=== PATIENT | male | born 1970 | race American Indian/Alaskan Native ===

== ENCOUNTER 2016-12-30 19:24 | Inpatient (IN) | payer MEDICARE, SELFPAY ==
[2016-12-30] MEDS ORDERED: DILAUDID IV ONE ×2 (20:10→23:21)
[2016-12-30] MEDS ORDERED: ZOFRAN ODT PO/SL ONE (20:10)
--- NOTE | 2016-12-30 20:20 | Emergency Department Report ---
ED Abdominal Pain HPI - General Chief Complaint: Abdominal Pain Stated Complaint: ABDOMINAL PAIN Time Seen by Provider: 12/30/16 20:05 Source: patient, EMS Mode of arrival: Stretcher Limitations: Other - History of Present Illness Initial Comments: This is a 46-year-old gentleman who describes a excruciating abdominal pain over the last 2-3 hours. He does endorse constipation over the past 2 days. Last bowel movement was 2 days ago and was somewhat hard. Patient indicates that in general he does have some difficulty with bowel movements. He also indicates that he is end-stage renal disease with peritoneal dialysis. He has had peritonitis before and he suspects that he has spontaneous bacterial peritonitis again. His fever he denies nausea vomiting. He's had normal oral intake today up until the last couple of hours. Onset/Timin -: Sudden, hour(s) Location: diffuse Radiation: none Migration to: no migration Severity scale (0 -10): 10 Quality: aching Consistency: constant Improves With: nothing Worsens With: movement, other (palpation) Associated Symptoms: denies other symptoms - Related Data Home Medications Medication Instructions Recorded Confirmed Last Taken Metoprolol [Lopressor TAB] 100 mg PO BID 09/09/15 12/30/16 06/25/16 05:30 Allopurinol 100 mg PO QDAY 06/18/16 12/30/16 06/24/16 Cinacalcet [Sensipar] 30 mg PO QDAY 12/30/16 12/30/16 Unknown Naproxen [Naprosyn] 500 mg PO BID 12/30/16 12/30/16 Unknown Sevelamer Carbonate [Renvela] 800 mg PO TIDWM 12/30/16 12/30/16 Unknown Previous Rx's Medication Instructions Recorded Last Taken Type Calcitriol [Rocaltrol] 0.25 mcg PO QDAY #30 capsule 09/12/15 06/24/16 Rx NIFEdipine XL [Procardia Xl] 30 mg PO QDAY #30 tablet 03/01/16 06/24/16 Rx Allergies Allergy/AdvReac Type Severity Reaction Status Date / Time No Known Allergies Allergy Verified 09/09/15 13:26 ED Review of Systems ROS: Stated complaint: ABDOMINAL PAIN Other details as noted in HPI Constitutional: denies: chills, fever Eyes: denies: eye pain, eye discharge, vision change ENT: denies: ear pain, throat pain Respiratory: denies: cough, shortness of breath, wheezing Cardiovascular: denies: chest pain, palpitations Endocrine: no symptoms reported Gastrointestinal: abdominal pain, constipation. denies: nausea, diarrhea Genitourinary: denies: urgency, dysuria Musculoskeletal: denies: back pain, joint swelling, arthralgia Skin: denies: rash, lesions Neurological: denies: headache, weakness, paresthesias Psychiatric: denies: anxiety, depression Hematological/Lymphatic: denies: easy bleeding, easy bruising ED Past Medical Hx - Past Medical History Hx Hypertension: Yes (1991) Hx Liver Disease: No Hx Renal Disease: Yes Hx Arthritis: Yes Hx Seizures: No Hx Asthma: No Additional medical history: Dialysis patient, has graft in left arm. no dialysis since 1998. frequent UTIs - Surgical History Additional Surgical History: Kidney transplant. graft placement - Social History Smoking Status: Never Smoker Substance Use Type: None - Medications Home Medications: Home Medications Medication Instructions Recorded Confirmed Last Taken Type Metoprolol [Lopressor TAB] 100 mg PO BID 09/09/15 12/30/16 06/25/16 05:30 History Calcitriol [Rocaltrol] 0.25 mcg PO QDAY #30 capsule 09/12/15 12/30/16 06/24/16 Rx NIFEdipine XL [Procardia Xl] 30 mg PO QDAY #30 tablet 03/01/16 12/30/16 Rx Allopurinol 100 mg PO QDAY 06/18/16 12/30/16 06/24/16 History Cinacalcet [Sensipar] 30 mg PO QDAY 12/30/16 12/30/16 Unknown History Naproxen [Naprosyn] 500 mg PO BID 12/30/16 12/30/16 Unknown History Sevelamer Carbonate [Renvela] 800 mg PO TIDWM 12/30/16 12/30/16 Unknown History ED Physical Exam - General Limitations: Other General appearance: alert, in distress (due to significant pains) - Head Head exam: Present: atraumatic, normocephalic - Eye Eye exam: Present: normal appearance. Absent: scleral icterus - ENT ENT exam: Present: normal exam, mucous membranes moist - Neck Neck exam: Present: normal inspection - Respiratory Respiratory exam: Present: normal lung sounds bilaterally. Absent: respiratory distress - Cardiovascular Cardiovascular Exam: Present: regular rate, tachycardia. Absent: systolic murmur, diastolic murmur, rubs, gallop - GI/Abdominal GI/Abdominal exam: Present: soft, tenderness (diffusely), rebound (diffusely), normal bowel sounds - Rectal Rectal exam: Present: deferred - Extremities Exam Extremities exam: Present: normal inspection, pedal edema (trace bilat with good distal pedal pulses noted.). Absent: joint swelling - Back Exam Back exam: Present: normal inspection - Neurological Exam Neurological exam: Present: alert, oriented X3 - Psychiatric Psychiatric exam: Present: normal affect, normal mood - Skin Skin exam: Present: warm, dry, intact, normal color. Absent: rash ED Course Vital Signs 12/30/16 12/30/16 12/30/16 19:49 19:50 19:54 Temperature 98.0 F Pulse Rate 134 H 133 H 134 H Respiratory 35 H 33 H 41 H Rate Blood Pressure Blood Pressure 141/50 [Right] O2 Sat by Pulse 74 L 85 100 Oximetry 12/30/16 12/30/16 12/30/16 20:00 20:10 20:20 Temperature Pulse Rate 139 H 144 H 149 H Respiratory 39 H 20 31 H Rate Blood Pressure 145/79 142/67 136/83 Blood Pressure [Right] O2 Sat by Pulse 47 L 91 Oximetry 12/30/16 12/30/16 12/30/16 20:30 20:40 20:50 Temperature Pulse Rate 145 H 146 H 151 H Respiratory 39 H 21 42 H Rate Blood Pressure 130/66 130/66 107/53 Blood Pressure [Right] O2 Sat by Pulse 65 L 98 79 L Oximetry 12/30/16 12/30/16 12/30/16 21:00 21:10 21:20 Temperature Pulse Rate 152 H 153 H 148 H Respiratory 22 16 32 H Rate Blood Pressure 130/66 112/53 100/52 Blood Pressure [Right] O2 Sat by Pulse 98 91 96 Oximetry 12/30/16 12/30/16 12/30/16 21:30 21:40 21:50 Temperature Pulse Rate 151 H 154 H 148 H Respiratory 25 H 28 H 33 H Rate Blood Pressure 109/53 107/53 99/49 Blood Pressure [Right] O2 Sat by Pulse 90 Oximetry 12/30/16 12/30/16 12/30/16 22:00 22:10 22:20 Temperature Pulse Rate 151 H 150 H 149 H Respiratory 23 25 H 38 H Rate Blood Pressure 103/42 100/52 103/46 Blood Pressure [Right] O2 Sat by Pulse 91 Oximetry 12/30/16 12/30/16 12/30/16 22:30 22:40 22:50 Temperature Pulse Rate 150 H 150 H 145 H Respiratory 31 H 31 H 37 H Rate Blood Pressure 103/46 103/46 69/48 Blood Pressure [Right] O2 Sat by Pulse 91 98 Oximetry 12/30/16 12/30/16 12/30/16 23:00 23:10 23:20 Temperature Pulse Rate 144 H 148 H 145 H Respiratory 42 H 13 18 Rate Blood Pressure 86/47 86/47 90/51 Blood Pressure [Right] O2 Sat by Pulse 51 L 97 92 Oximetry 12/30/16 12/30/16 12/30/16 23:30 23:40 23:50 Temperature Pulse Rate 142 H 144 H 146 H Respiratory 34 H 43 H 36 H Rate Blood Pressure 101/48 101/48 92/53 Blood Pressure [Right] O2 Sat by Pulse 84 95 94 Oximetry 12/31/16 12/31/16 12/31/16 00:00 00:10 00:12 Temperature Pulse Rate 140 H 142 H 142 H Respiratory 53 H 38 H 37 H Rate Blood Pressure 90/37 90/37 90/37 Blood Pressure [Right] O2 Sat by Pulse 89 90 91 Oximetry 12/31/16 12/31/16 12/31/16 00:20 00:30 00:40 Temperature Pulse Rate 143 H 141 H 145 H Respiratory 64 H 38 H 27 H Rate Blood Pressure 105/48 98/52 98/52 Blood Pressure [Right] O2 Sat by Pulse 96 95 92 Oximetry 12/31/16 12/31/16 12/31/16 00:50 01:00 01:10 Temperature Pulse Rate 143 H 138 H 138 H Respiratory 22 18 16 Rate Blood Pressure 92/49 99/47 99/47 Blood Pressure [Right] O2 Sat by Pulse 98 94 Oximetry 12/31/16 12/31/16 12/31/16 01:20 01:30 01:40 Temperature Pulse Rate 140 H 139 H 137 H Respiratory 35 H 25 H 44 H Rate Blood Pressure 100/46 81/45 81/45 Blood Pressure [Right] O2 Sat by Pulse 91 Oximetry 12/31/16 12/31/16 12/31/16 01:50 02:00 02:10 Temperature Pulse Rate 135 H 136 H 134 H Respiratory 51 H 45 H 23 Rate Blood Pressure 98/46 98/46 134/101 Blood Pressure [Right] O2 Sat by Pulse 94 94 Oximetry 12/31/16 12/31/16 12/31/16 02:20 02:30 02:40 Temperature Pulse Rate 133 H 135 H 132 H Respiratory 33 H 35 H 31 H Rate Blood Pressure 86/46 85/40 85/40 Blood Pressure [Right] O2 Sat by Pulse Oximetry 12/31/16 12/31/16 12/31/16 02:50 03:00 03:10 Temperature Pulse Rate 134 H 134 H 132 H Respiratory 35 H 37 H 30 H Rate Blood Pressure 99/51 90/36 90/36 Blood Pressure [Right] O2 Sat by Pulse 41 L 91 92 Oximetry 12/31/16 12/31/16 12/31/16 03:19 03:20 03:30 Temperature Pulse Rate 132 H 126 H 131 H Respiratory 41 H 24 Rate Blood Pressure 90/36 97/45 106/47 Blood Pressure [Right] O2 Sat by Pulse 91 Oximetry 12/31/16 12/31/16 12/31/16 03:40 03:50 04:00 Temperature Pulse Rate 122 H 126 H 123 H Respiratory 39 H 40 H 58 H Rate Blood Pressure 97/45 87/40 91/42 Blood Pressure [Right] O2 Sat by Pulse 95 93 41 L Oximetry 12/31/16 12/31/16 12/31/16 04:10 04:20 04:30 Temperature Pulse Rate 124 H 124 H 126 H Respiratory 35 H 45 H 52 H Rate Blood Pressure 91/42 94/35 110/47 Blood Pressure [Right] O2 Sat by Pulse 90 86 Oximetry 12/31/16 12/31/16 12/31/16 04:40 04:50 05:08 Temperature 98.4 F Pulse Rate 123 H 123 H 125 H Respiratory 48 H 43 H 29 H Rate Blood Pressure 110/47 91/33 Blood Pressure 101/45 [Right] O2 Sat by Pulse 99 Oximetry - Reevaluation(s) Reevaluation #1: 12/31/16 05:26 This is been a fairly challenging patient for me. I feel after 9 hours are several things I would've done differently in managing his case. Initially with significant abdominal pain. This was somewhat difficult to control but also he was well controlled with narcotic medication. Despite his pain being adequately controlled he continued to be quite tachycardic. CT did demonstrate what appeared to be SVT. I did try the adenosine and a peripheral line in the hand. This did nothing for him. 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 Ultimately I did decide to put a left IJ to gain better access and to try adenosine again. Repeated Son did bring down the heart rate from 140 to 110. P waves were noted in front of the QRS complexes when it slowed down. It appeared to be a sinus rhythm now. This caused me to posit wonder if he was volume depleted. He does have slightly dry mucous membranes his blood pressure has been somewhat dropping here. He attributed this to the narcotic medication however. Decision was ultimately made to give him some IV fluids he was given 500 mL bolus followed by 1 L bolus. This did bring down his heart rate by about 20 points. I also gave him a little Cardizem per the suggestion of Dr. Polanco. This also had somewhat of an effect on his heart rate as well. Labs are noted. Peritoneal fluid with clear SBP I did speak with the patient's cherry cutter who recommended patient be started empirically on vancomycin as well as Zosyn since Fortaz was not available. Other electrolyte abnormalities are noted. Of special note his lactic acidosis. In regards to patient's abdominal exam he does have diffuse tenderness. I do not suspect a surgical etiology as the cause for the spell. I think spontaneous bacterial peritonitis is still the most likely etiology. I have deferred on CT study for tonight. His white blood cell count is noted he is afebrile here. Family did go home and get his peritoneal dialysis equipment so he could continue with dialysate exchange through the night. Overall, he causes me concern and has been a challenging patient to manage. I have been concerned regarding his elevated heart rate is this is the equivalent of a stress test for him. He remained in the 140s for approximately 3-4 hours. Nothing seemed to be improving and heading in the right direction. [facility] his heart rate is 115. - Procedure Description Procedures done: Medical cardioversion. Indication supraventricular tachycardia. Heart rate in the 140s. Cardiac pads were placed on the patient. Suction and all ancillary equipment available. Verbal consent obtained from patient. Patient was given adenosine 12 mg IV 2. I did bring down the heart rate from 140 to 110. Heart rate then just went back up to 140 without breaking. Unsuccessful procedure. - Central Line Placement Left IJ Consent Obtained: verbal consent Time Out Performed: Yes Patient Placed on Monitor/Pulse Ox: Yes MD Prep: mask, gown, gloves Central Line Prep: Chlorhexidine scrub Local Anesthesia Used: Lidocaine 1% Amount of Anesthesia Used (mls): 3 Ultrasound Used for Placement: Yes Central Line Lumen Inserted: triple Bloods Obtained for Lab: No Central Line Position: good blood return (brown port without return) Dressing Applied: Tegaderm Post Procedure X-Ray: tip of catheter in good p ED Medical Decision Making - Lab Data Result diagrams: 12/30/16 20:36 12/31/16 02:39 - Radiology Data interpreted by me: Acute abdominal series with small amount of vascular congestion noted on chest x -ray component no free air noted nonspecific bowel gas pattern otherwise noted. Critical Care Time: Yes Critical care time in (mins) excluding proc time.: 60 Critical care attestation.: If time is entered above; I have spent that time in minutes in the direct care of this critically ill patient, excluding procedure time. ED Disposition Clinical Impression: Spontaneous bacterial peritonitis, End stage renal disease, Lactic acidosis Disposition: OP ADMITTED IP TO THIS HOSP Is pt being admited?: Yes Does the pt Need Aspirin: No Condition: Stable Time of Disposition: 03:47
[2016-12-30 21:03] LABS: Eosinophils % (Auto) 0.3 % (0.0-4.3); Hematocrit 27.3 % (35.5-45.6); Hemoglobin 8.7 gm/dl (11.8-15.2); Mean Corpuscular HGB Conc 32 % (32-34); Mean Corpuscular Hemoglobin 30 pg (28-32); Mean Corpuscular Volume 93 fl (84-94); Platelet Count 395 K/mm3 (140-440); Red Blood Count 2.93 M/mm3 (3.65-5.03); Red Cell Distribution Width 18.9 % (13.2-15.2)
[2016-12-30] MEDS ORDERED: SUBLIMAZE ONE (21:11)
[2016-12-30] MEDS ORDERED: SUBLIMAZE IV ONE (21:15)
[2016-12-30] MEDS ORDERED: VANCOMYCIN/NS 1 GM/250 ML 1 GM/250 ML BAG IV ONE (22:22)
[2016-12-30] MEDS: ZOSYN/NS 3.375GM/50ML 3.375 GM/50 ML BAG IV SCH (23:02)
[2016-12-30] MEDS ORDERED: NACL 0.9% 500 ML 500 ML IV ONE (23:21)
[2016-12-30] MEDS ORDERED: ATIVAN IV ONE (23:21)
[2016-12-31] MEDS ORDERED: DILAUDID IV ONE (01:52)
[2016-12-31] MEDS ORDERED: NACL 0.9% 1000 ML 1,000 ML IV ONE (01:52)
[2016-12-31] MEDS ORDERED: CARDIZEM IV ONE (01:55)
[2016-12-31 03:10] LABS: Albumin 3.4 g/dL (3.9-5); Albumin/Globulin Ratio 0.9 %; BUN/Creatinine Ratio 2.66; Bilirubin,Total 0.4 mg/dL (0.1-1.2); Calcium 8.7 mg/dL (8.4-10.2); Chloride 92.9 mmol/L (98-107); Potassium 5.3 mmol/L (3.6-5.0)
[2016-12-31 03:56] LABS: Basophils Body Fluid 0 %; Reactive Lymph Body Fluid 0 %
[2016-12-31] MEDS: ZOSYN/NS 3.375GM/50ML 3.375 GM/50 ML BAG IV SCH (04:33)
[2016-12-31] MEDS ORDERED: TYLENOL PO PRN (04:39)
[2016-12-31] MEDS ORDERED: MORPHINE IV PRN (04:39)
--- NOTE | 2016-12-31 04:40 | Admit Criteria Form ---
Admission Criteria Documentation: ABDOMINAL PAIN Clinical Indications for Admission to Inpatient Care (Place 'X' for any and all applicable criteria): Admission is indicated for ANY ONE of the following(1)(2)(3)(4)(5): [ X]I. Inpatient admission required rather than observation care (Also use Abdominal Pain: Observation Care, as appropriate) because of ANY ONE of the following: [ ]a) Severe pain requiring acute inpatient management [ ]b) Identification of etiology/finding that requires inpatient care (eg, aortic dissection, free air) [ ]c) Absent bowel sounds with complete ileus(6) [ ]d) Suspected toxic megacolon [ ]e) Severe electrolyte abnormalities requiring inpatient care [ ]f) High fever or infection requiring inpatient admission as indicated by ANY ONE of following(7)(8): [ ] i) Appropriate outpatient or observational care antimicrobial treatment unavailable, not effective, or not feasible [ ] ii) Documented bacteremia [ ] iii) Temperature > 104.9 degrees F (oral) [ ] iv) T >103.1 F (oral) or < 96.8 F(rectal) that does not respond to all emergency treatment measures [ ]g) Signs of intestinal obstruction [B] [ ]h) Hemodynamic instability [ ]i) IV fluid to replace significant ongoing losses (greater than 3 L/m2 per day) (12)(13) [ ]j) Percutaneous or open drainage (eg, abscess, biliary tract ) procedures [ ]k) Parenteral nutrition regimen that must be implemented on inpatient basis [X ]l) Other condition,treatment or monitoring requiring inpatient admission. [ ]II. Peritoneal signs present [ ]III. Surgery needed that cannot be performed on an ambulatory basis. [ ]IV. Evaluation requires patient to not eat or drink for extended period ( eg, more than 24 hours). [ ]V. Contraindications and/or Inappropriate clinical situations for Observational Care in patients with abdominal pain, when ANY ONE of the following is required: [ ]a) Thorough evaluation is required to prevent catastrophic events due to delays in diagnosing (e.g.Mesenteric ischemia) 1,3 [ ]b) Patient with severe pathology or with chronic symptoms unlikely to improve in the ED stay (3) [ ]. General contraindications and/or Inappropriate clinical situations for Observational Care in patients with abdominal pain, when ANY ONE of the following is required: [ ]a) Prediction of prolongation of LOS based on ANY ONE of the following may be considered as a contraindication for observational care 2, 3, 4, 5, 6, 7, 8, 9, 10, 11 [ ]i) Age > 65 yrs. [ ]ii) Patient arriving by ambulance [ ]iii) Patient with high acuity [ ]iv) Patient requiring vital sign monitoring [ ]v) Patient on IV medication [ ]b) Systolic blood pressures 180mmHg 3,12 [ ]c) Patient with altered mental status including delirium and other alteration of consciousness, (3) [ ]d) Patient whose discharge disposition will be to a nursing home home or rehabilitation home should not be managed in Emergency Department Observation Unit. CMS rule requires 3 days hospital stay before such placement.3,13 [ ]e) Patient with failure to thrive due to broad array of etiologies 3,16,17 [ ]f) Inability to ambulate 3,14 Extended stay beyond goal length of stay may be needed for(2)(3): [ ]a) Persistent abdominal pain with suspected intra-abdominal process [ ]b) Diagnosed condition requiring continued stay (e.g., pancreatitis, complicated diverticulitis) [ ]c) Surgery (e.g., colectomy) The original [employer] content created by [employer] has been revised. The portions of the content which have been revised are identified through the use of italic text or in bold, and [facility] has neither reviewed nor approved the modified material.All other unmodified content is copyright [employer]. Please see references footnoted in the original [employer] edition 2016 Admission Criteria Met: Yes
--- NOTE | 2016-12-31 04:45 | History and Physical Report ---
History of Present Illness Date of examination: 12/31/16 History of present illness: 46-year-old man with a history of end-stage dialysis on peritoneal dialysis, hypertension comes emergency room with complaint of abdominal pain. Pain is in the mid lower abdomen which she describes as a strong pain, constant, intensity 9/10, no radiation, worse or palpitation. Stated that fluid in his dialysis bag was cloudy. Reports hemorrhoidal bleeding. Denies fever or chills Patient denies chest pain, palpitation, shortness of breath, cough, hematochezia , dysuria, frequency, focal weakness, dysarthria, fever chills, polydipsia polyuria, hot or cold intolerance, easy bruisability, or rash or bleeding from mucosal membrane, rhinorrhea, epistaxis, earache, tinnitus, blurry vision, eye discharge, anxiety, depression. Other review of systems negative PAST SURGICAL HISTORY: PD catheter SOCIAL HISTORY: Denies alcohol, tobacco, drugs FAMILY HISTORY: Hypertension Medications and Allergies Allergies Allergy/AdvReac Type Severity Reaction Status Date / Time No Known Allergies Allergy Verified 09/09/15 13:26 Home Medications Medication Instructions Recorded Confirmed Last Taken Type Metoprolol [Lopressor TAB] 100 mg PO BID 09/09/15 12/30/16 06/25/16 05:30 History Calcitriol [Rocaltrol] 0.25 mcg PO QDAY #30 capsule 09/12/15 12/30/16 06/24/16 Rx NIFEdipine XL [Procardia Xl] 30 mg PO QDAY #30 tablet 03/01/16 12/30/16 Rx Allopurinol 100 mg PO QDAY 06/18/16 12/30/16 06/24/16 History Cinacalcet [Sensipar] 30 mg PO QDAY 12/30/16 12/30/16 Unknown History Naproxen [Naprosyn] 500 mg PO BID 12/30/16 12/30/16 Unknown History Sevelamer Carbonate [Renvela] 800 mg PO TIDWM 12/30/16 12/30/16 Unknown History Active Meds: Active Medications Allopurinol (Zyloprim) 100 mg PO QDAY SORIN Calcitriol (Rocaltrol) 0.25 mcg PO QDAY SORIN Cinacalcet (Sensipar) 30 mg PO QDAY SORIN Piperacillin Sod/Tazobactam Sod (Zosyn/Ns 3.375gm/50ml) 3.375 gm in 50 mls @ 100 mls/hr IV Q6HR SORIN Last Admin: 12/31/16 04:33 Dose: 100 mls/hr Norepinephrine (Levophed Drip 4 Mg/Ns 250 Ml) 4 mg in 250 mls @ 7.5 mls/hr IV TITR SORIN; 2 MCG/MIN PRN Reason: Protocol Exam - Physical Exam Narrative exam: Gen. appearance: Patient lying in bed, no apparent distress HEENT: Normocephalic, atraumatic, pupils equally round and reactive to light, extraocular movement intact, and no sclericterus,. No JVD or thyromegaly or nodule,neck supple, no carotid bruit ,mucous membranes moist, no exudate or erythema Heart: S1, S2, regular rate and rhythm Lungs: Clear to auscultation bilaterally, breathing comfortable Abdomen: Positive bowel sounds, tender, nondistended, no organomegaly Extremity: No edema, cyanosis Skin: No rash, nodules, warm, dry Neuro: Oriented 3, cranial nerves II-12 intact, speech is fluent, motor and sensory intact - Constitutional Vitals: Temp Pulse Resp BP Pulse Ox 98.0 F 122 H 39 H 97/45 95 12/30/16 19:54 12/31/16 03:40 12/31/16 03:50 12/31/16 03:40 12/31/16 03:50 Results - Labs CBC & Chem 7: 01/08/17 05:41 01/08/17 05:41 Labs: Abnormal lab results 12/30/16 12/31/16 12/31/16 Range/Units 20:36 02:39 02:39 WBC 17.0 H (4.5-11.0) K/mm3 RBC 2.93 L (3.65-5.03) M/mm3 Hgb 8.7 L (11.8-15.2) gm/dl Hct 27.3 L (35.5-45.6) % RDW 18.9 H (13.2-15.2) % Baso # 0.2 H (0.0-0.1) K/mm3 Seg Neutrophils % 73.3 H (40.0-70.0) % Seg Neutrophils # 12.4 H (1.8-7.7) K/mm3 Potassium 5.3 H (3.6-5.0) mmol/L Chloride 92.9 L (98-107) mmol/L Carbon Dioxide 21 L (22-30) mmol/L BUN 52 H (9-20) mg/dL Creatinine 19.5 H (0.8-1.5) mg/dL Glucose 149 H (75-100) mg/dL Lactic Acid 4.3 H* (0.7-2.0) mmol/L Albumin 3.4 L (3.9-5) g/dL - Imaging and Cardiology Chest x-ray: image reviewed Assessment and Plan Septic shock Peritonitis End-stage renal disease Admit to medicine Started Levophed drip, IV Zosyn Consult renal, critical care Start DVT prophylaxis
[2016-12-31] MEDS ORDERED: LEVOPHED DRIP 4 MG/NS 250 ML 4 MG/250 ML BAG IV SCH (05:00)
[2016-12-31] MEDS ORDERED: MORPHINE ONE (05:11)
[2016-12-31] MEDS ORDERED: ZOSYN/NS 3.375GM/50ML 50 ML IV SCH (06:00)
--- NOTE | 2016-12-31 07:39 | XRay Report ---
AP CHEST History: Central line placement. Findings: A left IJ venous catheter has been inserted which terminates in along the left side of the superior mediastinum. may terminate within the left brachiocephalic vein. I cannot confidently determine the exact location of this central line. Please correlate with the image. The lungs are clear. No pneumothorax. Mild cardiomegaly is unchanged since 05/18/16. Impression: Left IJ venous catheter placement as described.
[2016-12-31 08:40] LABS: Hematocrit 21.5 % (35.5-45.6); Hemoglobin 6.9 gm/dl (11.8-15.2); Mean Corpuscular HGB Conc 32 % (32-34); Mean Corpuscular Hemoglobin 30 pg (28-32); Mean Corpuscular Volume 92 fl (84-94); Platelet Count 203 K/mm3 (140-440); Red Blood Count 2.33 M/mm3 (3.65-5.03); Red Cell Distribution Width 19.1 % (13.2-15.2); White Blood Count 18.2 K/mm3 (4.5-11.0)
--- NOTE | 2016-12-31 08:53 | XRay Report ---
ABDOMINAL SERIES INDICATION: Abdominal pain. COMPARISON: None similar. Correlated with 05/18/2016 CXR and 08/13/[address] findings. FINDINGS: Abdominal series, 4 radiographs, somewhat limited due to patient's body habitus, though suggest grossly nonobstructive bowel gas pattern without definite focal suspicious calcifications, pneumatosis or pneumoperitoneum. Few surgical clips in the left upper pelvis related to a prior renal transplant. A new presumed peritoneal dialysis catheter also now noted coiled in the left lower quadrant. Approximately 5.2 x 4.9 cm heterogeneous right upper pelvic calcifications may relate to a failed renal transplant. Chest radiograph demonstrates suboptimal inspiration with crowded lung markings toward the bases with mild exaggerated cardiomediastinal silhouette. Mild left lung base atelectasis. No large pleural effusions or CHF. Vascular stents noted along the left arm medially as also in the right subclavian region. EKG leads. Few lower thoracic spine degenerative changes. CONCLUSION: 1. No acute abdominal radiographic abnormality, though a possibly peritoneal dialysis catheter in the left lower quadrant may be new since July 2016 in this patient with bilateral lower quadrant renal transplants, as described. Please correlate. 2. Suboptimal inspiration and few other incidental findings, as above. Thank you for the opportunity to participate in this patient's care.
[2016-12-31 09:01] LABS: ISTAT Base Excess -2; ISTAT HCO3 22.7; ISTAT PCO2 38.2 (35-45); ISTAT PH 7.382 (7.35-7.45); ISTAT PO2 78 (80-105); ISTAT SO2 95; ISTAT TCO2 24
[2016-12-31] MEDS ORDERED: DIANEAL PD-2 W/1.5% DEXTROSE IP SCH ×2 (10:00→12:00)
[2016-12-31] MEDS: SENSIPAR PO SCH (12:55)
[2016-12-31] MEDS: ZYLOPRIM PO SCH (12:55)
[2016-12-31] MEDS: MORPHINE IV PRN ×3 (13:10→22:51)
[2016-12-31] MEDS ORDERED: NACL 0.9% 500 ML 500 ML IV ONE (13:50)
[2016-12-31] MEDS ORDERED: NACL 0.9% 250ML 250 ML IV ONE (13:51)
--- NOTE | 2016-12-31 13:52 | Consultation ---
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 Pain is in the mid lower abdomen which is described as sharp , constant pain with intensity of 9/10, no radiation, worse or palpitation, pt reports that his PD fluid was was cloudy for the last 1-2 days. patient also c/ o chills, generalized weakness, palpitations, however denies acute SOB, CP, nausea, vomiting, dysuria, rash, pain at the PD cath exit site. Pt was recently seen by me in the office for persistent anemia despite increased dose of mircera and frequent BRBPR likely due to hemorrhoidal bleed. Pt was referred to GI, however presented to ER first. Pt was found to have leukocytosis with WBC > 18, anemia with Hb as low as 6.9 along with cloudy PD fluid, WBC count >4300. renal consult is requested for management of ESRD/PD and treatment of peritonitis. Past History Past Medical History: anemia, diabetes, dialysis, ESRD, hypertension Past Surgical History: Other (Multiple AV grafts, Multiple Permacaths, Kidney transplants in 1991, 1998, Pericardial window) Social history: , lives with family, full code. denies: smoking, alcohol abuse, prescription drug abuse, IV drug use Family history: hypertension Medications and Allergies Allergies Allergy/AdvReac Type Severity Reaction Status Date / Time No Known Allergies Allergy Verified 09/09/15 13:26 Home Medications Medication Instructions Recorded Confirmed Last Taken Type Metoprolol [Lopressor TAB] 100 mg PO BID 09/09/15 12/30/16 06/25/16 05:30 History Calcitriol [Rocaltrol] 0.25 mcg PO QDAY #30 capsule 09/12/15 12/30/16 06/24/16 Rx NIFEdipine XL [Procardia Xl] 30 mg PO QDAY #30 tablet 03/01/16 12/30/16 Rx Allopurinol 100 mg PO QDAY 06/18/16 12/30/16 06/24/16 History Cinacalcet [Sensipar] 30 mg PO QDAY 12/30/16 12/30/16 Unknown History Naproxen [Naprosyn] 500 mg PO BID 12/30/16 12/30/16 Unknown History Sevelamer Carbonate [Renvela] 800 mg PO TIDWM 12/30/16 12/30/16 Unknown History Active Meds: Active Medications Acetaminophen (Tylenol) 650 mg PO Q4H PRN PRN Reason: Pain MILD(1-3)/Fever >100.5/YODER Allopurinol (Zyloprim) 100 mg PO QDAY SORIN Calcitriol (Rocaltrol) 0.25 mcg PO QDAY SORIN Cinacalcet (Sensipar) 30 mg PO QDAY SORIN Heparin Sodium (Porcine) (Heparin) 5,000 unit SUB-Q Q8HR SORIN Norepinephrine (Levophed Drip 4 Mg/Ns 250 Ml) 4 mg in 250 mls @ 7.5 mls/hr IV TITR SORIN; 2 MCG/MIN PRN Reason: Protocol Piperacillin Sod/Tazobactam Sod (Zosyn/Ns 2.25 Gm/50ml) 2.25 gm in 50 mls @ 100 mls/hr IV Q8HR SORIN Sodium Chloride (Nacl 0.9% 500 Ml) mls @ 0 mls/hr IV ONCE ONE PRN Reason: As Directed Stop: 12/31/16 13:51 Sodium Chloride (Nacl 0.9% 250ml) 250 mls @ 999 mls/hr IV ONCE ONE Stop: 12/31/16 14:06 Morphine Sulfate (Morphine) 2 mg IV Q2H PRN PRN Reason: Pain, Moderate (4-6) Ondansetron HCl (Zofran) 4 mg IV Q8H PRN PRN Reason: N/V unrelieved by Reglan Peritoneal Dialysis Solution (Dianeal Pd-2 W/1.5% Dextrose) 2,000 ml IP Q6HR SORIN Review of Systems All systems: negative Constitutional: fever, chills, fatigue, weakness, malaise, lethargy, poor appetite Cardiovascular: shortness of breath, dyspnea on exertion Respiratory: dyspnea on exertion Gastrointestinal: abdominal pain, BRBPR Exam - Vital Signs Vital signs: Vital Signs Pulse Resp Pulse Ox 134 H 35 H 74 L 12/30/16 19:49 12/30/16 19:49 12/30/16 19:49 - General Appearance General appearance: well-developed, well-nourished, appears stated age EENT: ATNC, PERRL, mucous membranes moist Neck: Present: neck supple Respiratory: Clear to Ascultation Heart: regular, S1S2 Gastrointestinal: Present: tenderness, distended, other (PD cath exit site clean , intact ,dry ) Integumentary: no rash, other (no edema ) Neurologic: no focal deficit, alert and oriented x3, strength 5/5, CN 3-12 intact Psychiatric: mood/affect appropriate, cooperative Results - Lab Results 12/31/16 08:28 12/31/16 02:39 Most recent lab results Calcium 8.7 mg/dL (8.4-10.2) 12/31/16 02:39 Laboratory Tests 12/30/16 12/31/16 12/31/16 20:36 02:30 02:39 POC ABG pH POC ABG pCO2 POC ABG pO2 POC ABG HCO3 POC ABG Total CO2 POC ABG O2 Sat POC ABG Base Excess FiO2 Lactic Acid Calcium 8.7 Total Bilirubin 0.4 AST 14 ALT 11 Alkaline Phosphatase 106 Total Protein 7.0 Albumin 3.4 L Albumin/Globulin Ratio 0.9 Lipase 42 Fluid Type Peritoneal Fluid Color White Fluid Appearance Hazy Fluid WBC 4300 Fluid RBC 0 Fluid Seg Neutrophils 72.0 Fluid Lymphocytes 1.0 Fluid Reactive Lymphs 0 Fluid Monocytes 15.0 Fluid Eosinophils 12.0 Fluid Basophils 0 12/31/16 12/31/16 02:39 08:57 POC ABG pH 7.382 POC ABG pCO2 38.2 POC ABG pO2 78 L POC ABG HCO3 22.7 POC ABG Total CO2 24 POC ABG O2 Sat 95 POC ABG Base Excess -2 FiO2 32 Lactic Acid 4.3 H* Calcium Total Bilirubin AST ALT Alkaline Phosphatase Total Protein Albumin Albumin/Globulin Ratio Lipase Fluid Type Fluid Color Fluid Appearance Fluid WBC Fluid RBC Fluid Seg Neutrophils Fluid Lymphocytes Fluid Reactive Lymphs Fluid Monocytes Fluid Eosinophils Fluid Basophils Assessment and Plan Assessment: 1. acute peritonitis in the setting of PD 2. ESRD on PD 3. Sepsis with hypotension 4. Anemia, acute blood loss anemia superimposed on chronic anemia of ESRD 5. h/o Type 2 DM 6. Hyperkalemia 7. lactic acidosis Plan: - continue ABX treatment with IV vanco and zosyn. dose adjusted for PD. awaiting PD fluid culture. Consult ID - BP stabilized with IV NS/transient levophed. Will give addional IV NS bolus of 250ml. to maintain MAP >65mmHg - will transfuse with 2 PRBCs given down trending Hb. consider GI consult. will start epo [id number] sc q week - continue CAPD with 4 exchanges of 1.5% Dineal 2.5 dwell volume. Will monitor I /Os, electrolytes and renal parameters closely and adjust PD regimen accordingly. -d/w RN and patient regarding renal care plan.
[2016-12-31] MEDS: ZOSYN/NS 2.25 GM/50ML 2.25 GM/50 ML BAG IV SCH ×2 (13:56→22:53)
--- NOTE | 2016-12-31 14:04 | Progress Note ---
Assessment and Plan Assessment and plan: 1. Peritonitis with resolving septic shock in patient with PD for ESRD - cotn current antibiotics; f/u cultures; IVF boluses as needed; I2. End-stage renal disease on PD with peritionitis- f/u renal for further recommendations 3. Acute on chronic anemia requiring transfusion- transfuse PRBC; monitor; anemia work up 4. Benign HTN with hypotension -hold BP meds 5. DVT prohylaxis- SCD; no heparin or lovenox due to anemia requiring transfusion CCT exclusive of all other billable procedures 32 minutes History Interval history: f/u sepsis/ shock; peritonitis Patient seen at the bedside; has abdominal pain Hospitalist Physical - Constitutional Vitals: Temp Pulse Resp BP Pulse Ox 98.9 F 112 H 35 H 105/42 100 12/31/16 12:00 12/31/16 07:34 12/31/16 07:34 12/31/16 06:30 12/31/16 08:59 General appearance: Present: no acute distress, well-nourished - EENT Eyes: Present: PERRL, EOM intact ENT: hearing intact, clear oral mucosa, no oropharyngeal erythema, no poor dentition - Neck Neck: Present: supple, normal ROM - Respiratory Respiratory effort: normal Respiratory: negative: diminished, rales, rhonchi, wheezing - Cardiovascular Rhythm: regular Heart Sounds: Present: S1 & S2. Absent: gallop - Extremities Extremities: no ischemia, pulses intact, pulses symmetrical, No edema Peripheral Pulses: within normal limits - Abdominal General gastrointestinal: soft, tender, distended - Integumentary Integumentary: Present: clear - Psychiatric Psychiatric: appropriate mood/affect, intact judgment & insight, cooperative Results - Labs CBC & Chem 7: 12/31/16 08:28 12/31/16 02:39 Labs: Laboratory Last Values WBC 18.2 K/mm3 (4.5-11.0) H 12/31/16 08:28 RBC 2.33 M/mm3 (3.65-5.03) L 12/31/16 08:28 Hgb 6.9 gm/dl (11.8-15.2) L 12/31/16 08:28 Hct 21.5 % (35.5-45.6) L 12/31/16 08:28 MCV 92 fl (84-94) 12/31/16 08:28 MCH 30 pg (28-32) 12/31/16 08:28 MCHC 32 % (32-34) 12/31/16 08:28 RDW 19.1 % (13.2-15.2) H 12/31/16 08:28 Plt Count 203 K/mm3 (140-440) 12/31/16 08:28 Lymph % (Auto) 20.7 % (13.4-35.0) 12/30/16 20:36 [place] % (Auto) 4.7 % (0.0-7.3) 12/30/16 20:36 Eos % (Auto) 0.3 % (0.0-4.3) 12/30/16 20:36 Baso % (Auto) 1.0 % (0.0-1.8) 12/30/16 20:36 Lymph # 3.5 K/mm3 (1.2-5.4) 12/30/16 20:36 [place] # 0.8 K/mm3 (0.0-0.8) 12/30/16 20:36 Eos # 0.0 K/mm3 (0.0-0.4) 12/30/16 20:36 Baso # 0.2 K/mm3 (0.0-0.1) H 12/30/16 20:36 Seg Neutrophils % 73.3 % (40.0-70.0) H 12/30/16 20:36 Seg Neutrophils # 12.4 K/mm3 (1.8-7.7) H 12/30/16 20:36 POC ABG pH 7.382 (7.35-7.45) 12/31/16 08:57 POC ABG pCO2 38.2 (35-45) 12/31/16 08:57 POC ABG pO2 78 (80-105) L 12/31/16 08:57 POC ABG HCO3 22.7 12/31/16 08:57 POC ABG Total CO2 24 12/31/16 08:57 POC ABG O2 Sat 95 12/31/16 08:57 POC ABG Base Excess -2 12/31/16 08:57 FiO2 32 % 12/31/16 08:57 Sodium 140 mmol/L (137-145) 12/31/16 02:39 Potassium 5.3 mmol/L (3.6-5.0) H 12/31/16 02:39 Chloride 92.9 mmol/L (98-107) L 12/31/16 02:39 Carbon Dioxide 21 mmol/L (22-30) L 12/31/16 02:39 Anion Gap 31 mmol/L 12/31/16 02:39 BUN 52 mg/dL (9-20) H 12/31/16 02:39 Creatinine 19.5 mg/dL (0.8-1.5) H 12/31/16 02:39 Estimated GFR 3 ml/min 12/31/16 02:39 BUN/Creatinine Ratio 2.66 % 12/31/16 02:39 Glucose 149 mg/dL (75-100) H 12/31/16 02:39 Lactic Acid 4.3 mmol/L (0.7-2.0) H* 12/31/16 02:39 Calcium 8.7 mg/dL (8.4-10.2) 12/31/16 02:39 Total Bilirubin 0.4 mg/dL (0.1-1.2) 12/31/16 02:39 AST 14 units/L (5-40) 12/31/16 02:39 ALT 11 units/L (7-56) 12/31/16 02:39 Alkaline Phosphatase 106 units/L (35-129) 12/31/16 02:39 Total Protein 7.0 g/dL (6.3-8.2) 12/31/16 02:39 Albumin 3.4 g/dL (3.9-5) L 12/31/16 02:39 Albumin/Globulin Ratio 0.9 % 12/31/16 02:39 Lipase 42 units/L (13-60) 12/30/16 20:36 Fluid Type Peritoneal 12/31/16 02:30 Fluid Color White 12/31/16 02:30 Fluid Appearance Hazy 12/31/16 02:30 Fluid WBC 4300 /mm3 12/31/16 02:30 Fluid RBC 0 /mm3 12/31/16 02:30 Fluid Seg Neutrophils 72.0 % 12/31/16 02:30 Fluid Lymphocytes 1.0 % 12/31/16 02:30 Fluid Reactive Lymphs 0 % 12/31/16 02:30 Fluid Monocytes 15.0 % 12/31/16 02:30 Fluid Eosinophils 12.0 % 12/31/16 02:30 Fluid Basophils 0 % 12/31/16 02:30 Microbiology 12/30/16 21:24 Abdomen Wound Culture - Preliminary 12/30/16 20:36 Peripheral/Venous Blood Culture - Preliminary Culture in Progress 12/30/16 20:51 Peripheral/Venous Blood Culture - Preliminary Culture in Progress
[2016-12-31] MEDS: HEPARIN SUB-Q SCH ×2 (15:07→22:57)
[2016-12-31] MEDS: ROCALTROL PO SCH (15:25)
--- NOTE | 2016-12-31 16:19 | Consultation ---
History of Present Illness Consult date: 12/31/16 Requesting physician: KANDI LEW Reason for consult: other (sepsis) History of present illness: 46 yo admitted with abdominal pain, cloudy PD fluid, vomiting, SOB, and fevers. No chest pain, cough, diarrhea. Hypotensive initially but doing better currently without any pressors. Active Medications Acetaminophen (Tylenol) 650 mg PO Q4H PRN PRN Reason: Pain MILD(1-3)/Fever >100.5/YODER Allopurinol (Zyloprim) 100 mg PO QDAY [facility] Last Admin: 12/31/16 12:55 Dose: 100 mg Calcitriol (Rocaltrol) 0.25 mcg PO QDAY SORIN Cinacalcet (Sensipar) 30 mg PO QDAY SORIN Last Admin: 12/31/16 12:55 Dose: 30 mg Heparin Sodium (Porcine) (Heparin) 5,000 unit SUB-Q Q8HR SORIN Last Admin: 12/31/16 15:07 Dose: 5,000 unit Norepinephrine (Levophed Drip 4 Mg/Ns 250 Ml) 4 mg in 250 mls @ 7.5 mls/hr IV TITR SORIN; 2 MCG/MIN PRN Reason: Protocol Piperacillin Sod/Tazobactam Sod (Zosyn/Ns 2.25 Gm/50ml) 2.25 gm in 50 mls @ 100 mls/hr IV Q8HR SORIN Last Admin: 12/31/16 13:56 Dose: 100 mls/hr Morphine Sulfate (Morphine) 2 mg IV Q2H PRN PRN Reason: Pain, Moderate (4-6) Ondansetron HCl (Zofran) 4 mg IV Q8H PRN PRN Reason: N/V unrelieved by Reglan Peritoneal Dialysis Solution (Dianeal Pd-2 W/1.5% Dextrose) 2,500 ml IP Q6HR SORIN Vancomycin HCl (Vancomycin Pharmacy To Dose) 1 each IV PKCONSULT SORIN PRN Reason: Protocol Past History Past Medical History: anemia, diabetes, dialysis, ESRD, hypertension Past Surgical History: Other (Multiple AV grafts, Multiple Permacaths, Kidney transplants in 1991, 1998, Pericardial window) Social history: , lives with family, full code. denies: smoking, alcohol abuse, prescription drug abuse, IV drug use Family history: hypertension Medications and Allergies Allergies Allergy/AdvReac Type Severity Reaction Status Date / Time No Known Allergies Allergy Verified 09/09/15 13:26 Home Medications Medication Instructions Recorded Confirmed Last Taken Type Metoprolol [Lopressor TAB] 100 mg PO BID 09/09/15 12/30/16 06/25/16 05:30 History Calcitriol [Rocaltrol] 0.25 mcg PO QDAY #30 capsule 09/12/15 12/30/16 06/24/16 Rx NIFEdipine XL [Procardia Xl] 30 mg PO QDAY #30 tablet 03/01/16 12/30/16 Rx Allopurinol 100 mg PO QDAY 06/18/16 12/30/16 06/24/16 History Cinacalcet [Sensipar] 30 mg PO QDAY 12/30/16 12/30/16 Unknown History Naproxen [Naprosyn] 500 mg PO BID 12/30/16 12/30/16 Unknown History Sevelamer Carbonate [Renvela] 800 mg PO TIDWM 12/30/16 12/30/16 Unknown History Active Meds: Active Medications Acetaminophen (Tylenol) 650 mg PO Q4H PRN PRN Reason: Pain MILD(1-3)/Fever >100.5/YODER Allopurinol (Zyloprim) 100 mg PO QDAY [facility] Last Admin: 12/31/16 12:55 Dose: 100 mg Calcitriol (Rocaltrol) 0.25 mcg PO QDAY SORIN Cinacalcet (Sensipar) 30 mg PO QDAY [facility] Last Admin: 12/31/16 12:55 Dose: 30 mg Heparin Sodium (Porcine) (Heparin) 5,000 unit SUB-Q Q8HR [facility] Last Admin: 12/31/16 15:07 Dose: 5,000 unit Norepinephrine (Levophed Drip 4 Mg/Ns 250 Ml) 4 mg in 250 mls @ 7.5 mls/hr IV TITR SORIN; 2 MCG/MIN PRN Reason: Protocol Piperacillin Sod/Tazobactam Sod (Zosyn/Ns 2.25 Gm/50ml) 2.25 gm in 50 mls @ 100 mls/hr IV Q8HR [facility] Last Admin: 12/31/16 13:56 Dose: 100 mls/hr Morphine Sulfate (Morphine) 2 mg IV Q2H PRN PRN Reason: Pain, Moderate (4-6) Ondansetron HCl (Zofran) 4 mg IV Q8H PRN PRN Reason: N/V unrelieved by Reglan Peritoneal Dialysis Solution (Dianeal Pd-2 W/1.5% Dextrose) 2,500 ml IP Q6HR SORIN Vancomycin HCl (Vancomycin Pharmacy To Dose) 1 each IV PKCONSULT SORIN PRN Reason: Protocol Review of Systems All systems: negative Physical Examination Vital signs: Vital Signs Pulse Resp Pulse Ox 134 H 35 H 74 L 12/30/16 19:49 12/30/16 19:49 12/30/16 19:49 General appearance: alert, other (critically ill) Eyes: non-icteric ENT: oropharynx moist Neck: supple Effort: mildly labored Ascultation: Bilateral: diminished breath sounds (bases) Cardiovascular: other (tachy, RR; no mrg) Gastrointestinal: hypoactive bowel sounds, soft, tender (throughout), other ( distended 2/2 PD) Integumentary: normal Extremities: no cyanosis, no edema, pink and warm Musculoskeletal: no deformities normal mental status, non-focal exam, pupils equal and round, CN II-XII normal mood appropriate, affect normal Results - Laboratory Findings CBC and BMP: 12/31/16 08:28 12/31/16 02:39 ABG POC ABG pH 7.382 (7.35-7.45) 12/31/16 08:57 POC ABG pCO2 38.2 (35-45) 12/31/16 08:57 POC ABG pO2 78 (80-105) L 12/31/16 08:57 POC ABG HCO3 22.7 12/31/16 08:57 POC ABG Total CO2 24 12/31/16 08:57 POC ABG O2 Sat 95 12/31/16 08:57 Abnormal lab findings: Abnormal Labs 12/31/16 12/31/16 12/31/16 08:28 08:57 13:54 WBC 18.2 H RBC 2.33 L Hgb 6.9 L Hct 21.5 L RDW 19.1 H POC ABG pO2 78 L Crossmatch See Detail - Diagnostic Findings Chest x-ray: report reviewed, image reviewed Assessment and Plan Imp: 1. PD-catheter assocated peritonitis 2. Sepsis 3. ESRD 4. Hyperkalemia 5. Lactic acidosis 6. Anemia Rec: 1. Add Vancomycin to Zosyn; f/u PD fluid cultures 2. PD per renal 3. Transfusion per renal 4. Sinus tachy is likely compensatory 5. Repeat lactic acid 6. Add DVT PPx 7. Critically ill; keep in ICU next 24 hours Plan of care reviewed w/ patient, he understands/agrees CCT 31 minutes
[2016-12-31] MEDS ORDERED: VANCOMYCIN PHARMACY TO DOSE IV SCH (17:00)
[2016-12-31] MEDS: DIANEAL PD-2 W/1.5% DEXTROSE IP SCH (18:30)
[2016-12-31] MEDS ORDERED: NACL 0.9% 500 ML 500 ML IV SCH (20:40)
[2016-12-31] MEDS ORDERED: NACL 0.9% 500 ML 500 ML ONE (20:43)
[2017-01-01] MEDS: MORPHINE IV PRN ×6 (00:57→19:21)
[2017-01-01] MEDS: DIANEAL PD-2 W/1.5% DEXTROSE IP SCH ×4 (01:08→18:53)
[2017-01-01 05:56] LABS: Basophils % (Auto) 0.2 % (0.0-1.8); Eosinophils % (Auto) 1.7 % (0.0-4.3); Hematocrit 24.5 % (35.5-45.6); Hemoglobin 8.2 gm/dl (11.8-15.2); Mean Corpuscular HGB Conc 34 % (32-34); Mean Corpuscular Hemoglobin 31 pg (28-32); Mean Corpuscular Volume 91 fl (84-94); Platelet Count 149 K/mm3 (140-440); Red Blood Count 2.69 M/mm3 (3.65-5.03); Red Cell Distribution Width 18.1 % (13.2-15.2); White Blood Count 9.8 K/mm3 (4.5-11.0)
[2017-01-01 06:13] LABS: BUN/Creatinine Ratio 3.5; Calcium 8.6 mg/dL (8.4-10.2); Chloride 93.2 mmol/L (98-107); Potassium 5.2 mmol/L (3.6-5.0)
[2017-01-01] MEDS: HEPARIN SUB-Q SCH ×3 (06:28→22:46)
[2017-01-01] MEDS: ZOSYN/NS 2.25 GM/50ML 2.25 GM/50 ML BAG IV SCH ×3 (06:28→22:46)
[2017-01-01] MEDS: ZYLOPRIM PO SCH (11:29)
[2017-01-01] MEDS: SENSIPAR PO SCH (11:30)
[2017-01-01] MEDS: ROCALTROL PO SCH (11:30)
--- NOTE | 2017-01-01 11:53 | Progress Note ---
Assessment and Plan Assessment: 1. acute peritonitis in the setting of PD 2. ESRD on PD 3. Sepsis with hypotension 4. Anemia, acute blood loss anemia superimposed on chronic anemia of ESRD 5. h/o Type 2 DM 6. Hyperkalemia 7. lactic acidosis Plan: - continue ABX treatment with IV vanco and zosyn. Will check vanco trough in AM and redose if level <15. dose adjusted for PD. awaiting PD fluid culture. Consult ID - BP stabilized with IV NS/blood transfusion. to maintain MAP >65mmHg - s/p 2 PRBCs. consider GI consult if Hb continues to trend down. continue epo [id number] sc q week - continue CAPD with 4 exchanges of 1.5% Dineal, will decrease dwell volume to 2L given abd distension/pain. Will monitor I/Os, electrolytes and renal parameters closely and adjust PD regimen accordingly. Subjective Date of service: 01/01/17 Interval history: patient awake alert, denies fever, chills overnight, BP stable off vasopressor support. Objective - Vital Signs Vital signs: Vital Signs - 12hr 01/01/17 01/01/17 01/01/17 00:00 00:10 00:14 Temperature 98.4 F Pulse Rate 114 H 116 H 114 H Respiratory 28 H 24 25 H Rate Blood Pressure 106/58 106/58 106/58 O2 Sat by Pulse 100 100 100 Oximetry 01/01/17 01/01/17 01/01/17 00:20 00:24 00:30 Temperature 98.0 F Pulse Rate 115 H 117 H Respiratory 32 H 21 Rate Blood Pressure 118/55 118/55 O2 Sat by Pulse 100 100 Oximetry 01/01/17 01/01/17 01/01/17 00:40 00:43 00:50 Temperature 98.0 F Pulse Rate 114 H 109 H 115 H Respiratory 31 H 32 H 32 H Rate Blood Pressure 122/77 120/74 118/69 O2 Sat by Pulse 100 100 100 Oximetry 01/01/17 01/01/17 01/01/17 00:57 00:58 01:00 Temperature 98.0 F Pulse Rate 109 H 115 H Respiratory 38 H 32 H 34 H Rate Blood Pressure 120/74 127/72 O2 Sat by Pulse 100 100 Oximetry 01/01/17 01/01/17 01/01/17 01:10 01:20 01:27 Temperature Pulse Rate 112 H 113 H Respiratory 38 H 25 H 34 H Rate Blood Pressure 127/72 108/63 O2 Sat by Pulse 100 99 Oximetry 01/01/17 01/01/17 01/01/17 01:28 01:30 01:40 Temperature 98.0 F Pulse Rate 109 H 113 H 114 H Respiratory 32 H 39 H 37 H Rate Blood Pressure 120/74 107/60 110/60 O2 Sat by Pulse 100 100 100 Oximetry 01/01/17 01/01/17 01/01/17 01:50 01:58 02:00 Temperature 98.0 F Pulse Rate 112 H 110 H 110 H Respiratory 24 30 H 24 Rate Blood Pressure 119/69 117/65 109/70 O2 Sat by Pulse 100 100 100 Oximetry 01/01/17 01/01/17 01/01/17 02:10 02:20 02:28 Temperature 98.0 F Pulse Rate 112 H 111 H 110 H Respiratory 34 H 27 H 30 H Rate Blood Pressure 109/70 121/60 117/65 O2 Sat by Pulse 100 100 100 Oximetry 01/01/17 01/01/17 01/01/17 02:30 02:40 02:49 Temperature Pulse Rate 112 H 112 H Respiratory 36 H 34 H 32 H Rate Blood Pressure 116/68 116/68 O2 Sat by Pulse 100 100 Oximetry 01/01/17 01/01/17 01/01/17 02:50 02:58 03:00 Temperature 98.0 F Pulse Rate 112 H 110 H 111 H Respiratory 35 H 30 H 32 H Rate Blood Pressure 134/83 117/65 120/74 O2 Sat by Pulse 100 100 100 Oximetry 01/01/17 01/01/17 01/01/17 03:10 03:19 03:20 Temperature Pulse Rate 109 H 110 H Respiratory 26 H 32 H 30 H Rate Blood Pressure 120/74 117/65 O2 Sat by Pulse 100 100 Oximetry 01/01/17 01/01/17 01/01/17 03:28 03:30 03:35 Temperature 98.0 F 98.0 F Pulse Rate 110 H 108 H 110 H Respiratory 30 H 27 H 30 H Rate Blood Pressure 117/65 123/66 117/65 O2 Sat by Pulse 100 100 100 Oximetry 01/01/17 01/01/17 01/01/17 03:40 03:50 04:00 Temperature Pulse Rate 108 H 106 H 108 H Respiratory 29 H 26 H 37 H Rate Blood Pressure 123/66 115/64 104/64 O2 Sat by Pulse 100 100 100 Oximetry 01/01/17 01/01/17 01/01/17 04:10 04:20 04:30 Temperature Pulse Rate 107 H 107 H 105 H Respiratory 28 H 35 H 21 Rate Blood Pressure 104/64 114/67 123/70 O2 Sat by Pulse 100 100 100 Oximetry 01/01/17 01/01/17 01/01/17 04:40 04:45 04:50 Temperature Pulse Rate 103 H 105 H Respiratory 18 32 H 45 H Rate Blood Pressure 123/70 119/77 O2 Sat by Pulse 100 98 100 Oximetry 01/01/17 01/01/17 01/01/17 04:56 05:00 05:10 Temperature 97.5 F L Pulse Rate 106 H 103 H Respiratory 18 23 Rate Blood Pressure 122/66 122/66 O2 Sat by Pulse 99 100 Oximetry 01/01/17 01/01/17 01/01/17 05:20 05:30 05:40 Temperature Pulse Rate 104 H 103 H 107 H Respiratory 25 H 28 H 32 H Rate Blood Pressure 117/69 126/66 126/66 O2 Sat by Pulse 100 100 100 Oximetry 01/01/17 01/01/17 01/01/17 05:50 06:00 06:10 Temperature Pulse Rate 108 H 107 H 107 H Respiratory 28 H 38 H 31 H Rate Blood Pressure 129/71 139/77 139/77 O2 Sat by Pulse 100 100 100 Oximetry 01/01/17 01/01/17 01/01/17 06:20 06:30 06:40 Temperature Pulse Rate 109 H 108 H 109 H Respiratory 36 H 33 H 38 H Rate Blood Pressure 130/80 134/83 134/83 O2 Sat by Pulse 100 100 100 Oximetry 01/01/17 01/01/17 01/01/17 06:50 07:00 07:10 Temperature Pulse Rate 108 H 108 H 109 H Respiratory 34 H 34 H 19 Rate Blood Pressure 123/69 123/69 O2 Sat by Pulse 100 100 100 Oximetry 01/01/17 01/01/17 01/01/17 07:20 07:30 07:40 Temperature Pulse Rate 110 H 111 H 111 H Respiratory 37 H 41 H 37 H Rate Blood Pressure 124/71 123/65 123/65 O2 Sat by Pulse 100 100 100 Oximetry 01/01/17 01/01/17 01/01/17 07:50 08:00 08:10 Temperature 98.7 F Pulse Rate 107 H 111 H 108 H Respiratory 21 35 H 28 H Rate Blood Pressure 131/83 140/79 140/79 O2 Sat by Pulse 100 95 100 Oximetry 01/01/17 11:30 Temperature Pulse Rate Respiratory 31 H Rate Blood Pressure O2 Sat by Pulse Oximetry - General Appearance General appearance: well-developed, well-nourished, appears stated age EENT: ATNC, PERRL, mucous membranes moist Neck: no JVD Respiratory: Present: Clear to Ascultation Cardiology: regular, S1S2 Gastrointestinal: tenderness, distended Integumentary: no rash, other (no edema ) Neurologic: no focal deficit, alert and oriented x3, strength 5/5, CN 3-12 intact Psychiatric: mood/affect appropriate, cooperative - Lab 01/01/17 05:40 01/01/17 05:40 Most recent lab results Calcium 8.6 mg/dL (8.4-10.2) 01/01/17 05:40
--- NOTE | 2017-01-01 13:26 | Progress Note ---
Assessment and Plan Imp: 1. PD-catheter assocated peritonitis 2. Sepsis 3. ESRD 4. Hyperkalemia 5. Lactic acidosis 6. Anemia Rec: 1. Added Vancomycin to Zosyn; PD culture negative but clearly evidence of infection based on cell count and appearance of fluid; consider CT a/p if pain persists 2. PD per renal 3. Repeat lactate normal; HR down, RR better; okay to transfer to floor w/ tele 4. Add DVT PPx Plan of care reviewed w/ patient, he understands/agrees Subjective Date of service: 01/01/17 Principal diagnosis: Sepsis Interval history: No events. Awake, alert. SOB due to pain in his abdomen when taking a deep breath. No chest pain, cough, wheezing. Active Medications Acetaminophen (Tylenol) 650 mg PO Q4H PRN PRN Reason: Pain MILD(1-3)/Fever >100.5/YODER Allopurinol (Zyloprim) 100 mg PO QDAY [facility] Last Admin: 01/01/17 11:29 Dose: 100 mg Calcitriol (Rocaltrol) 0.25 mcg PO QDAY [facility] Last Admin: 01/01/17 11:30 Dose: 0.25 mcg Cinacalcet (Sensipar) 30 mg PO QDAY [facility] Last Admin: 01/01/17 11:30 Dose: 30 mg Epoetin Marbin (Epogen) 20,000 unit SUB-Q Tu [facility] Last Admin: 01/01/17 11:30 Dose: 20,000 unit Heparin Sodium (Porcine) (Heparin) 5,000 unit SUB-Q Q8HR [facility] Last Admin: 01/01/17 06:28 Dose: 5,000 unit Norepinephrine (Levophed Drip 4 Mg/Ns 250 Ml) 4 mg in 250 mls @ 7.5 mls/hr IV TITR SORIN; 2 MCG/MIN PRN Reason: Protocol Piperacillin Sod/Tazobactam Sod (Zosyn/Ns 2.25 Gm/50ml) 2.25 gm in 50 mls @ 100 mls/hr IV Q8HR [facility] Last Admin: 01/01/17 06:28 Dose: 100 mls/hr Morphine Sulfate (Morphine) 2 mg IV Q2H PRN PRN Reason: Pain, Moderate (4-6) Last Admin: 01/01/17 11:30 Dose: 2 mg Ondansetron HCl (Zofran) 4 mg IV Q8H PRN PRN Reason: N/V unrelieved by Reglan Peritoneal Dialysis Solution (Dianeal Pd-2 W/1.5% Dextrose) 2,000 ml IP Q6HR [facility] Vancomycin HCl (Vancomycin Pharmacy To Dose) 1 each IV PKCONSULT SORIN PRN Reason: Protocol Objective Vital Signs - 12hr 01/01/17 01/01/17 01/01/17 01:27 01:28 01:30 Temperature 98.0 F Pulse Rate 109 H 113 H Respiratory 34 H 32 H 39 H Rate Blood Pressure 120/74 107/60 O2 Sat by Pulse 100 100 Oximetry 01/01/17 01/01/17 01/01/17 01:40 01:50 01:58 Temperature 98.0 F Pulse Rate 114 H 112 H 110 H Respiratory 37 H 24 30 H Rate Blood Pressure 110/60 119/69 117/65 O2 Sat by Pulse 100 100 100 Oximetry 01/01/17 01/01/17 01/01/17 02:00 02:10 02:20 Temperature Pulse Rate 110 H 112 H 111 H Respiratory 24 34 H 27 H Rate Blood Pressure 109/70 109/70 121/60 O2 Sat by Pulse 100 100 100 Oximetry 01/01/17 01/01/17 01/01/17 02:28 02:30 02:40 Temperature 98.0 F Pulse Rate 110 H 112 H 112 H Respiratory 30 H 36 H 34 H Rate Blood Pressure 117/65 116/68 116/68 O2 Sat by Pulse 100 100 100 Oximetry 01/01/17 01/01/17 01/01/17 02:49 02:50 02:58 Temperature 98.0 F Pulse Rate 112 H 110 H Respiratory 32 H 35 H 30 H Rate Blood Pressure 134/83 117/65 O2 Sat by Pulse 100 100 Oximetry 01/01/17 01/01/17 01/01/17 03:00 03:10 03:19 Temperature Pulse Rate 111 H 109 H Respiratory 32 H 26 H 32 H Rate Blood Pressure 120/74 120/74 O2 Sat by Pulse 100 100 Oximetry 01/01/17 01/01/17 01/01/17 03:20 03:28 03:30 Temperature 98.0 F Pulse Rate 110 H 110 H 108 H Respiratory 30 H 30 H 27 H Rate Blood Pressure 117/65 117/65 123/66 O2 Sat by Pulse 100 100 100 Oximetry 01/01/17 01/01/17 01/01/17 03:35 03:40 03:50 Temperature 98.0 F Pulse Rate 110 H 108 H 106 H Respiratory 30 H 29 H 26 H Rate Blood Pressure 117/65 123/66 115/64 O2 Sat by Pulse 100 100 100 Oximetry 01/01/17 01/01/17 01/01/17 04:00 04:10 04:20 Temperature Pulse Rate 108 H 107 H 107 H Respiratory 37 H 28 H 35 H Rate Blood Pressure 104/64 104/64 114/67 O2 Sat by Pulse 100 100 100 Oximetry 01/01/17 01/01/17 01/01/17 04:30 04:40 04:45 Temperature Pulse Rate 105 H 103 H Respiratory 21 18 32 H Rate Blood Pressure 123/70 123/70 O2 Sat by Pulse 100 100 98 Oximetry 01/01/17 01/01/17 01/01/17 04:50 04:56 05:00 Temperature 97.5 F L Pulse Rate 105 H 106 H Respiratory 45 H 18 Rate Blood Pressure 119/77 122/66 O2 Sat by Pulse 100 99 Oximetry 01/01/17 01/01/17 01/01/17 05:10 05:20 05:30 Temperature Pulse Rate 103 H 104 H 103 H Respiratory 23 25 H 28 H Rate Blood Pressure 122/66 117/69 126/66 O2 Sat by Pulse 100 100 100 Oximetry 01/01/17 01/01/17 01/01/17 05:40 05:50 06:00 Temperature Pulse Rate 107 H 108 H 107 H Respiratory 32 H 28 H 38 H Rate Blood Pressure 126/66 129/71 139/77 O2 Sat by Pulse 100 100 100 Oximetry 01/01/17 01/01/17 01/01/17 06:10 06:20 06:30 Temperature Pulse Rate 107 H 109 H 108 H Respiratory 31 H 36 H 33 H Rate Blood Pressure 139/77 130/80 134/83 O2 Sat by Pulse 100 100 100 Oximetry 01/01/17 01/01/17 01/01/17 06:40 06:50 07:00 Temperature Pulse Rate 109 H 108 H 108 H Respiratory 38 H 34 H 34 H Rate Blood Pressure 134/83 123/69 O2 Sat by Pulse 100 100 100 Oximetry 01/01/17 01/01/17 01/01/17 07:10 07:20 07:30 Temperature Pulse Rate 109 H 110 H 111 H Respiratory 19 37 H 41 H Rate Blood Pressure 123/69 124/71 123/65 O2 Sat by Pulse 100 100 100 Oximetry 01/01/17 01/01/17 01/01/17 07:40 07:50 08:00 Temperature 98.7 F Pulse Rate 111 H 107 H 111 H Respiratory 37 H 21 35 H Rate Blood Pressure 123/65 131/83 140/79 O2 Sat by Pulse 100 100 95 Oximetry 01/01/17 01/01/17 01/01/17 08:10 11:30 12:00 Temperature 97.8 F Pulse Rate 108 H Respiratory 28 H 31 H Rate Blood Pressure 140/79 O2 Sat by Pulse 100 Oximetry Constitutional: alert, other (critically ill) Eyes: non-icteric ENT: oropharynx moist Neck: supple Effort: normal Ascultation: Bilateral: diminished breath sounds (bases) Cardiovascular: other (tachy, RR; no mrg) Gastrointestinal: hypoactive bowel sounds, soft, tender (throughout), other ( distended 2/2 PD) Integumentary: normal Extremities: no cyanosis, no edema, pink and warm Neurologic: normal mental status, non-focal exam, pupils equal and round, CN II- XII normal Psychiatric: mood appropriate, affect normal CBC and BMP: 01/01/17 05:40 01/01/17 05:40 ABG, PT/INR, D-dimer: ABG POC ABG pH 7.382 (7.35-7.45) 12/31/16 08:57 POC ABG pCO2 38.2 (35-45) 12/31/16 08:57 POC ABG pO2 78 (80-105) L 12/31/16 08:57 POC ABG HCO3 22.7 12/31/16 08:57 POC ABG Total CO2 24 12/31/16 08:57 POC ABG O2 Sat 95 12/31/16 08:57 Abnormal lab findings: Abnormal Labs 12/31/16 12/31/16 12/31/16 08:28 08:57 13:54 WBC 18.2 H RBC 2.33 L Hgb 6.9 L Hct 21.5 L RDW 19.1 H Lymph % (Auto) [place] % (Auto) [place] # Seg Neutrophils % POC ABG pO2 78 L Sodium Potassium Chloride BUN Creatinine Iron Folate Crossmatch See Detail 12/31/16 12/31/16 01/01/17 21:00 21:00 05:40 WBC RBC 2.69 L Hgb 8.2 L Hct 24.5 L RDW 18.1 H Lymph % (Auto) 13.0 L [place] % (Auto) 9.3 H [place] # 0.9 H Seg Neutrophils % 75.8 H POC ABG pO2 Sodium Potassium Chloride BUN Creatinine Iron 17 L Folate 5.71 L Crossmatch 01/01/17 05:40 WBC RBC Hgb Hct RDW Lymph % (Auto) [place] % (Auto) [place] # Seg Neutrophils % POC ABG pO2 Sodium 136 L Potassium 5.2 H Chloride 93.2 L BUN 69 H Creatinine 19.7 H Iron Folate Crossmatch Chest x-ray: report reviewed, image reviewed
--- NOTE | 2017-01-01 14:21 | Progress Note ---
Assessment and Plan Assessment and plan: 1. Peritonitis with resolving septic shock in patient with PD for ESRD - cotn current antibiotics. Vancomycin and Zosyn. F/u cultures; IVF boluses as needed. Repeat lactate normal. 2. End-stage renal disease on PD with peritionitis- f/u renal for further recommendations 3. Acute on chronic anemia requiring transfusion- transfuse PRBC; monitor; anemia work up 4. Benign HTN with hypotension -hold BP meds 5. Disposition. Patient will be transferred to the floor with telemetry. 6. DVT prophylaxis. SCDs. No heparin given the anemia. History Interval history: No new issues overnight. Hospitalist Physical - Constitutional Vitals: Temp Pulse Resp BP Pulse Ox 97.8 F 108 H 31 H 140/79 100 01/01/17 12:00 01/01/17 08:10 01/01/17 11:30 01/01/17 08:10 01/01/17 08:10 General appearance: Present: no acute distress, well-nourished - EENT Eyes: Present: PERRL, EOM intact ENT: hearing intact, clear oral mucosa, dentition normal - Neck Neck: Present: supple, normal ROM - Respiratory Respiratory effort: normal Respiratory: bilateral: diminished, rhonchi - Cardiovascular Rhythm: regular Heart Sounds: Present: S1 & S2. Absent: gallop, rub - Extremities Extremities: no ischemia, No edema, Full ROM - Abdominal General gastrointestinal: soft, non-tender, non-distended, normal bowel sounds - Integumentary Integumentary: Present: clear, warm, dry - Neurologic Neurologic: CNII-XII intact, moves all extremities Results - Labs CBC & Chem 7: 01/01/17 05:40 01/01/17 05:40 Labs: Laboratory Last Values WBC 9.8 K/mm3 (4.5-11.0) 01/01/17 05:40 RBC 2.69 M/mm3 (3.65-5.03) L 01/01/17 05:40 Hgb 8.2 gm/dl (11.8-15.2) L 01/01/17 05:40 Hct 24.5 % (35.5-45.6) L 01/01/17 05:40 MCV 91 fl (84-94) 01/01/17 05:40 MCH 31 pg (28-32) 01/01/17 05:40 MCHC 34 % (32-34) 01/01/17 05:40 RDW 18.1 % (13.2-15.2) H 01/01/17 05:40 Plt Count 149 K/mm3 (140-440) 01/01/17 05:40 Lymph % (Auto) 13.0 % (13.4-35.0) L 01/01/17 05:40 [place] % (Auto) 9.3 % (0.0-7.3) H 01/01/17 05:40 Eos % (Auto) 1.7 % (0.0-4.3) 01/01/17 05:40 Baso % (Auto) 0.2 % (0.0-1.8) 01/01/17 05:40 Lymph # 1.3 K/mm3 (1.2-5.4) 01/01/17 05:40 [place] # 0.9 K/mm3 (0.0-0.8) H 01/01/17 05:40 Eos # 0.2 K/mm3 (0.0-0.4) 01/01/17 05:40 Baso # 0.0 K/mm3 (0.0-0.1) 01/01/17 05:40 Seg Neutrophils % 75.8 % (40.0-70.0) H 01/01/17 05:40 Seg Neutrophils # 7.4 K/mm3 (1.8-7.7) 01/01/17 05:40 POC ABG pH 7.382 (7.35-7.45) 12/31/16 08:57 POC ABG pCO2 38.2 (35-45) 12/31/16 08:57 POC ABG pO2 78 (80-105) L 12/31/16 08:57 POC ABG HCO3 22.7 12/31/16 08:57 POC ABG Total CO2 24 12/31/16 08:57 POC ABG O2 Sat 95 12/31/16 08:57 POC ABG Base Excess -2 12/31/16 08:57 FiO2 32 % 12/31/16 08:57 Sodium 136 mmol/L (137-145) L 01/01/17 05:40 Potassium 5.2 mmol/L (3.6-5.0) H 01/01/17 05:40 Chloride 93.2 mmol/L (98-107) L 01/01/17 05:40 Carbon Dioxide 26 mmol/L (22-30) 01/01/17 05:40 Anion Gap 22 mmol/L 01/01/17 05:40 BUN 69 mg/dL (9-20) H 01/01/17 05:40 Creatinine 19.7 mg/dL (0.8-1.5) H 01/01/17 05:40 Estimated GFR 3 ml/min 01/01/17 05:40 BUN/Creatinine Ratio 3.50 % 01/01/17 05:40 Glucose 82 mg/dL (75-100) 01/01/17 05:40 Lactic Acid 0.9 mmol/L (0.7-2.0) 01/01/17 05:40 Calcium 8.6 mg/dL (8.4-10.2) 01/01/17 05:40 Iron 17 ug/dL (49-181) L 12/31/16 21:00 Total Bilirubin 0.4 mg/dL (0.1-1.2) 12/31/16 02:39 AST 14 units/L (5-40) 12/31/16 02:39 ALT 11 units/L (7-56) 12/31/16 02:39 Alkaline Phosphatase 106 units/L (35-129) 12/31/16 02:39 Total Protein 7.0 g/dL (6.3-8.2) 12/31/16 02:39 Albumin 3.4 g/dL (3.9-5) L 12/31/16 02:39 Albumin/Globulin Ratio 0.9 % 12/31/16 02:39 Lipase 42 units/L (13-60) 12/30/16 20:36 Vitamin B12 498.9 pg/mL (211-911) 12/31/16 21:00 Folate 5.71 ng/mL (7.3-26.0) L 12/31/16 21:00 Fluid Type Peritoneal 12/31/16 02:30 Fluid Color White 12/31/16 02:30 Fluid Appearance Hazy 12/31/16 02:30 Fluid WBC 4300 /mm3 12/31/16 02:30 Fluid RBC 0 /mm3 12/31/16 02:30 Fluid Seg Neutrophils 72.0 % 12/31/16 02:30 Fluid Lymphocytes 1.0 % 12/31/16 02:30 Fluid Reactive Lymphs 0 % 12/31/16 02:30 Fluid Monocytes 15.0 % 12/31/16 02:30 Fluid Eosinophils 12.0 % 12/31/16 02:30 Fluid Basophils 0 % 12/31/16 02:30 Blood Type A POSITIVE 12/31/16 13:54 Antibody Screen Positive 12/31/16 13:54 Antibody Identification Anti-M 12/31/16 13:54 Crossmatch See Detail 12/31/16 13:54
[2017-01-02] MEDS: DIANEAL PD-2 W/1.5% DEXTROSE IP SCH ×4 (02:00→17:47)
[2017-01-02] MEDS: MORPHINE IV PRN ×6 (02:16→17:47)
[2017-01-02] MEDS: HEPARIN SUB-Q SCH ×3 (06:13→22:01)
[2017-01-02] MEDS: ZOSYN/NS 2.25 GM/50ML 2.25 GM/50 ML BAG IV SCH ×3 (06:13→22:03)
[2017-01-02 08:01] LABS: Basophils % (Auto) 0.3 % (0.0-1.8); Eosinophils % (Auto) 3.5 % (0.0-4.3); Hematocrit 23.1 % (35.5-45.6); Hemoglobin 7.8 gm/dl (11.8-15.2); Mean Corpuscular HGB Conc 34 % (32-34); Mean Corpuscular Hemoglobin 31 pg (28-32); Mean Corpuscular Volume 92 fl (84-94); Platelet Count 137 K/mm3 (140-440); Red Blood Count 2.52 M/mm3 (3.65-5.03); White Blood Count 7.8 K/mm3 (4.5-11.0)
[2017-01-02 08:25] LABS: BUN/Creatinine Ratio 3.4; Calcium 8.1 mg/dL (8.4-10.2); Chloride 91.2 mmol/L (98-107); Potassium 4.6 mmol/L (3.6-5.0)
--- NOTE | 2017-01-02 10:26 | Progress Note ---
Assessment and Plan Assessment: 1. acute peritonitis in the setting of PD 2. ESRD on PD 3. Sepsis with hypotension 4. Anemia, acute blood loss anemia superimposed on chronic anemia of ESRD 5. h/o Type 2 DM 6. Hyperkalemia 7. lactic acidosis Plan: - continue ABX treatment with IV vanco and zosyn. check vanco trough in AM and redose if level <15. awaiting PD fluid culture. - BP stabilized with IV NS/blood transfusion. to maintain MAP >65mmHg - s/p 2 PRBCs, Hb at 7.8. consider GI consult if Hb continues to trend down. continue epo [id number] sc q week - continue CAPD with 4 exchanges of 1.5% [place], dwell volume decreased to 2L given abd distension/pain. Will monitor I/Os, electrolytes and renal parameters closely and adjust PD regimen accordingly. Subjective Principal diagnosis: Sepsis Interval history: pt transferred to regular floor, with stable BP, pt awake, alert, denies fever, chills, n/v/d. Objective - Vital Signs Vital signs: Vital Signs - 12hr 01/01/17 01/01/17 01/01/17 22:30 22:45 22:51 Pulse Rate 106 H 105 H 108 H Pulse Rate [ From Monitor] Respiratory 20 19 24 Rate Blood Pressure 126/68 124/73 124/73 O2 Sat by Pulse 100 99 99 Oximetry 01/01/17 01/01/17 01/01/17 23:00 23:15 23:30 Pulse Rate 106 H 106 H 106 H Pulse Rate [ From Monitor] Respiratory 25 H 22 24 Rate Blood Pressure 128/79 127/76 120/75 O2 Sat by Pulse 100 100 100 Oximetry 01/01/17 01/02/17 01/02/17 23:45 00:00 00:15 Pulse Rate 111 H 111 H 112 H Pulse Rate [ From Monitor] Respiratory 21 28 H 31 H Rate Blood Pressure 118/85 111/81 133/78 O2 Sat by Pulse 94 100 100 Oximetry 01/02/17 01/02/17 01/02/17 00:30 00:45 01:00 Pulse Rate 112 H 114 H 113 H Pulse Rate [ From Monitor] Respiratory 27 H 28 H 28 H Rate Blood Pressure 140/76 140/76 129/75 O2 Sat by Pulse 99 100 99 Oximetry 01/02/17 01/02/17 01/02/17 01:15 01:30 01:45 Pulse Rate 113 H 114 H 114 H Pulse Rate [ From Monitor] Respiratory 29 H 31 H 29 H Rate Blood Pressure 131/73 140/75 131/71 O2 Sat by Pulse 99 100 100 Oximetry 01/02/17 01/02/17 01/02/17 02:00 02:15 02:30 Pulse Rate 116 H 114 H 114 H Pulse Rate [ From Monitor] Respiratory 29 H 31 H 30 H Rate Blood Pressure 130/80 134/67 133/67 O2 Sat by Pulse 99 99 99 Oximetry 01/02/17 01/02/17 01/02/17 02:45 03:00 03:15 Pulse Rate 114 H 110 H 113 H Pulse Rate [ From Monitor] Respiratory 29 H 20 21 Rate Blood Pressure 114/61 112/60 100/53 O2 Sat by Pulse 100 99 100 Oximetry 01/02/17 01/02/17 01/02/17 03:30 03:40 03:45 Pulse Rate 112 H 108 H Pulse Rate [ 106 H From Monitor] Respiratory 22 20 19 Rate Blood Pressure 93/54 90/48 O2 Sat by Pulse 99 97 98 Oximetry 01/02/17 01/02/17 01/02/17 04:00 04:15 04:30 Pulse Rate 108 H 107 H 104 H Pulse Rate [ From Monitor] Respiratory 22 18 19 Rate Blood Pressure 105/51 91/45 101/48 O2 Sat by Pulse 99 99 99 Oximetry 01/02/17 01/02/17 01/02/17 04:45 05:00 05:15 Pulse Rate 105 H 105 H 108 H Pulse Rate [ From Monitor] Respiratory 18 15 22 Rate Blood Pressure 83/47 95/56 100/68 O2 Sat by Pulse 100 99 99 Oximetry 01/02/17 01/02/17 01/02/17 05:30 05:45 06:00 Pulse Rate 106 H 106 H 107 H Pulse Rate [ From Monitor] Respiratory 24 24 24 Rate Blood Pressure 112/67 116/69 124/74 O2 Sat by Pulse 99 100 100 Oximetry 01/02/17 01/02/17 08:33 08:55 Pulse Rate Pulse Rate [ From Monitor] Respiratory 28 H Rate Blood Pressure O2 Sat by Pulse 100 Oximetry - General Appearance General appearance: well-developed, well-nourished, appears stated age EENT: ATNC, PERRL, mucous membranes moist Neck: no JVD Respiratory: Present: Clear to Ascultation Cardiology: regular, S1S2 Gastrointestinal: normoactive bowel sounds, tenderness, distended, obese, other (PD cat exit site c/d/i) Integumentary: no rash, other (no edema ) Neurologic: no focal deficit, alert and oriented x3, strength 5/5, CN 3-12 intact Psychiatric: mood/affect appropriate, cooperative - Lab 01/02/17 07:23 01/02/17 07:23 Most recent lab results Calcium 8.1 mg/dL (8.4-10.2) L 01/02/17 07:23
[2017-01-02] MEDS: ZYLOPRIM PO SCH (10:28)
[2017-01-02] MEDS: SENSIPAR PO SCH (10:28)
[2017-01-02] MEDS: ROCALTROL PO SCH (10:28)
--- NOTE | 2017-01-02 12:17 | Progress Note ---
Assessment and Plan Assessment and plan: 1. Peritonitis with resolving septic shock in patient with PD for ESRD - cotn current antibiotics. Vancomycin and Zosyn. F/u cultures; IVF boluses as needed. Repeat lactate normal. 2. End-stage renal disease on PD with peritionitis- f/u renal for further recommendations 3. Acute on chronic anemia requiring transfusion- transfuse PRBC; monitor; anemia work up 4. Benign HTN with hypotension -hold BP meds 5. DVT prophylaxis. SCDs. No heparin given the anemia. History Interval history: No new issues overnight. Hospitalist Physical - Constitutional Vitals: Temp Pulse Resp BP Pulse Ox 98.3 F 112 H 20 121/72 99 01/02/17 11:08 01/02/17 11:08 01/02/17 11:08 01/02/17 11:08 01/02/17 11:08 General appearance: Present: no acute distress, well-nourished - EENT Eyes: Present: PERRL, EOM intact ENT: hearing intact, clear oral mucosa, dentition normal - Neck Neck: Present: supple, normal ROM - Respiratory Respiratory effort: normal Respiratory: bilateral: CTA - Cardiovascular Rhythm: regular Heart Sounds: Present: S1 & S2. Absent: gallop, rub - Extremities Extremities: no ischemia, No edema, Full ROM - Abdominal General gastrointestinal: soft, non-tender, non-distended, normal bowel sounds - Integumentary Integumentary: Present: clear, warm, dry - Neurologic Neurologic: CNII-XII intact, moves all extremities Results - Labs CBC & Chem 7: 01/02/17 07:23 01/02/17 07:23 Labs: Laboratory Last Values WBC 7.8 K/mm3 (4.5-11.0) 01/02/17 07:23 RBC 2.52 M/mm3 (3.65-5.03) L 01/02/17 07:23 Hgb 7.8 gm/dl (11.8-15.2) L 01/02/17 07:23 Hct 23.1 % (35.5-45.6) L 01/02/17 07:23 MCV 92 fl (84-94) 01/02/17 07:23 MCH 31 pg (28-32) 01/02/17 07:23 MCHC 34 % (32-34) 01/02/17 07:23 RDW 18.0 % (13.2-15.2) H 01/02/17 07:23 Plt Count 137 K/mm3 (140-440) L 01/02/17 07:23 Lymph % (Auto) 11.3 % (13.4-35.0) L 01/02/17 07:23 [place] % (Auto) 7.6 % (0.0-7.3) H 01/02/17 07:23 Eos % (Auto) 3.5 % (0.0-4.3) 01/02/17 07:23 Baso % (Auto) 0.3 % (0.0-1.8) 01/02/17 07:23 Lymph # 0.9 K/mm3 (1.2-5.4) L 01/02/17 07:23 [place] # 0.6 K/mm3 (0.0-0.8) 01/02/17 07:23 Eos # 0.3 K/mm3 (0.0-0.4) 01/02/17 07:23 Baso # 0.0 K/mm3 (0.0-0.1) 01/02/17 07:23 Seg Neutrophils % 77.3 % (40.0-70.0) H 01/02/17 07:23 Seg Neutrophils # 6.0 K/mm3 (1.8-7.7) 01/02/17 07:23 POC ABG pH 7.382 (7.35-7.45) 12/31/16 08:57 POC ABG pCO2 38.2 (35-45) 12/31/16 08:57 POC ABG pO2 78 (80-105) L 12/31/16 08:57 POC ABG HCO3 22.7 12/31/16 08:57 POC ABG Total CO2 24 12/31/16 08:57 POC ABG O2 Sat 95 12/31/16 08:57 POC ABG Base Excess -2 12/31/16 08:57 FiO2 32 % 12/31/16 08:57 Sodium 137 mmol/L (137-145) 01/02/17 07:23 Potassium 4.6 mmol/L (3.6-5.0) 01/02/17 07:23 Chloride 91.2 mmol/L (98-107) L 01/02/17 07:23 Carbon Dioxide 23 mmol/L (22-30) 01/02/17 07:23 Anion Gap 27 mmol/L 01/02/17 07:23 BUN 68 mg/dL (9-20) H 01/02/17 07:23 Creatinine 20.0 mg/dL (0.8-1.5) H 01/02/17 07:23 Estimated GFR 3 ml/min 01/02/17 07:23 BUN/Creatinine Ratio 3.40 % 01/02/17 07:23 Glucose 87 mg/dL (75-100) 01/02/17 07:23 Lactic Acid 0.9 mmol/L (0.7-2.0) 01/01/17 05:40 Calcium 8.1 mg/dL (8.4-10.2) L 01/02/17 07:23 Iron 17 ug/dL (49-181) L 12/31/16 21:00 Total Bilirubin 0.4 mg/dL (0.1-1.2) 12/31/16 02:39 AST 14 units/L (5-40) 12/31/16 02:39 ALT 11 units/L (7-56) 12/31/16 02:39 Alkaline Phosphatase 106 units/L (35-129) 12/31/16 02:39 Total Protein 7.0 g/dL (6.3-8.2) 12/31/16 02:39 Albumin 3.4 g/dL (3.9-5) L 12/31/16 02:39 Albumin/Globulin Ratio 0.9 % 12/31/16 02:39 Lipase 42 units/L (13-60) 12/30/16 20:36 Vitamin B12 498.9 pg/mL (211-911) 12/31/16 21:00 Folate 5.71 ng/mL (7.3-26.0) L 12/31/16 21:00 Fluid Type Peritoneal 12/31/16 02:30 Fluid Color White 12/31/16 02:30 Fluid Appearance Hazy 12/31/16 02:30 Fluid WBC 4300 /mm3 12/31/16 02:30 Fluid RBC 0 /mm3 12/31/16 02:30 Fluid Seg Neutrophils 72.0 % 12/31/16 02:30 Fluid Lymphocytes 1.0 % 12/31/16 02:30 Fluid Reactive Lymphs 0 % 12/31/16 02:30 Fluid Monocytes 15.0 % 12/31/16 02:30 Fluid Eosinophils 12.0 % 12/31/16 02:30 Fluid Basophils 0 % 12/31/16 02:30 Random Vancomycin 5.9 ug/mL (0-40.0) 01/02/17 07:23 Blood Type A POSITIVE 12/31/16 13:54 Antibody Screen Positive 12/31/16 13:54 Antibody Identification Anti-M 12/31/16 13:54 Crossmatch See Detail 12/31/16 13:54
[2017-01-02] MEDS ORDERED: VANCOMYCIN VIAL 1,250 MG in NACL 0.9% 250ML 250 ML IV ONE (13:00)
--- NOTE | 2017-01-02 13:05 | Progress Note ---
Assessment and Plan Imp: 1. PD-catheter assocated peritonitis 2. Sepsis 3. ESRD 4. Hyperkalemia 5. Lactic acidosis 6. Anemia Rec: 1. Vanco/Zosyn; PD culture negative but clearly evidence of infection based on cell count and appearance of fluid; consider CT a/p if pain persists 2. PD per renal 3. DVT PPx 4. Try to mobilize ELIZABETH 5. Would wean O2 to off; doubt he really needs VM Plan of care reviewed w/ patient, he understands/agrees Subjective Date of service: 01/02/17 Principal diagnosis: Sepsis Interval history: No events. Awake, alert. SOB due to pain in his abdomen when taking a deep breath. No chest pain, cough, wheezing. States abd pain is improving. Active Medications Acetaminophen (Tylenol) 650 mg PO Q4H PRN PRN Reason: Pain MILD(1-3)/Fever >100.5/YODER Allopurinol (Zyloprim) 100 mg PO QDAY [facility] Last Admin: 01/02/17 10:28 Dose: 100 mg Calcitriol (Rocaltrol) 0.25 mcg PO QDAY [facility] Last Admin: 01/02/17 10:28 Dose: 0.25 mcg Cinacalcet (Sensipar) 30 mg PO QDAY [facility] Last Admin: 01/02/17 10:28 Dose: 30 mg Epoetin Marbin (Epogen) 20,000 unit SUB-Q Tu [facility] Last Admin: 01/01/17 11:30 Dose: 20,000 unit Heparin Sodium (Porcine) (Heparin) 5,000 unit SUB-Q Q8HR [facility] Last Admin: 01/02/17 06:13 Dose: 5,000 unit Piperacillin Sod/Tazobactam Sod (Zosyn/Ns 2.25 Gm/50ml) 2.25 gm in 50 mls @ 100 mls/hr IV Q8HR [facility] Last Admin: 01/02/17 06:13 Dose: 100 mls/hr Vancomycin HCl 1,250 mg/ (Sodium Chloride) 250 mls @ 166.667 mls/hr IV ONCE ONE Stop: 01/02/17 14:29 Morphine Sulfate (Morphine) 2 mg IV Q2H PRN PRN Reason: Pain, Moderate (4-6) Last Admin: 01/02/17 08:55 Dose: 2 mg Ondansetron HCl (Zofran) 4 mg IV Q8H PRN PRN Reason: N/V unrelieved by Reglan Peritoneal Dialysis Solution (Dianeal Pd-2 W/1.5% Dextrose) 2,000 ml IP Q6HR [facility] Last Admin: 01/02/17 12:01 Dose: 2,000 ml Vancomycin HCl (Vancomycin Pharmacy To Dose) 1 each IV PKCONSULT [facility] PRN Reason: Protocol Objective Vital Signs - 12hr 01/02/17 01/02/17 01/02/17 01:15 01:30 01:45 Temperature Pulse Rate 113 H 114 H 114 H Pulse Rate [ From Monitor] Pulse Rate [ Right Dorsalis Pedis] Respiratory 29 H 31 H 29 H Rate Blood Pressure 131/73 140/75 131/71 Blood Pressure [Right Arm] O2 Sat by Pulse 99 100 100 Oximetry 01/02/17 01/02/17 01/02/17 02:00 02:15 02:30 Temperature Pulse Rate 116 H 114 H 114 H Pulse Rate [ From Monitor] Pulse Rate [ Right Dorsalis Pedis] Respiratory 29 H 31 H 30 H Rate Blood Pressure 130/80 134/67 133/67 Blood Pressure [Right Arm] O2 Sat by Pulse 99 99 99 Oximetry 01/02/17 01/02/17 01/02/17 02:45 03:00 03:15 Temperature Pulse Rate 114 H 110 H 113 H Pulse Rate [ From Monitor] Pulse Rate [ Right Dorsalis Pedis] Respiratory 29 H 20 21 Rate Blood Pressure 114/61 112/60 100/53 Blood Pressure [Right Arm] O2 Sat by Pulse 100 99 100 Oximetry 01/02/17 01/02/17 01/02/17 03:30 03:40 03:45 Temperature Pulse Rate 112 H 108 H Pulse Rate [ 106 H From Monitor] Pulse Rate [ Right Dorsalis Pedis] Respiratory 22 20 19 Rate Blood Pressure 93/54 90/48 Blood Pressure [Right Arm] O2 Sat by Pulse 99 97 98 Oximetry 01/02/17 01/02/17 01/02/17 04:00 04:15 04:30 Temperature Pulse Rate 108 H 107 H 104 H Pulse Rate [ From Monitor] Pulse Rate [ Right Dorsalis Pedis] Respiratory 22 18 19 Rate Blood Pressure 105/51 91/45 101/48 Blood Pressure [Right Arm] O2 Sat by Pulse 99 99 99 Oximetry 01/02/17 01/02/17 01/02/17 04:45 05:00 05:15 Temperature Pulse Rate 105 H 105 H 108 H Pulse Rate [ From Monitor] Pulse Rate [ Right Dorsalis Pedis] Respiratory 18 15 22 Rate Blood Pressure 83/47 95/56 100/68 Blood Pressure [Right Arm] O2 Sat by Pulse 100 99 99 Oximetry 01/02/17 01/02/17 01/02/17 05:30 05:45 06:00 Temperature Pulse Rate 106 H 106 H 107 H Pulse Rate [ From Monitor] Pulse Rate [ Right Dorsalis Pedis] Respiratory 24 24 24 Rate Blood Pressure 112/67 116/69 124/74 Blood Pressure [Right Arm] O2 Sat by Pulse 99 100 100 Oximetry 01/02/17 01/02/17 01/02/17 06:15 06:30 06:45 Temperature Pulse Rate 111 H 108 H 108 H Pulse Rate [ From Monitor] Pulse Rate [ Right Dorsalis Pedis] Respiratory 31 H 25 H 19 Rate Blood Pressure 133/79 137/71 123/55 Blood Pressure [Right Arm] O2 Sat by Pulse 100 100 100 Oximetry 01/02/17 01/02/17 01/02/17 07:00 07:15 07:30 Temperature Pulse Rate 107 H 110 H 111 H Pulse Rate [ From Monitor] Pulse Rate [ Right Dorsalis Pedis] Respiratory 18 22 19 Rate Blood Pressure 113/56 120/65 118/71 Blood Pressure [Right Arm] O2 Sat by Pulse 100 100 99 Oximetry 01/02/17 01/02/17 01/02/17 07:45 08:01 08:15 Temperature Pulse Rate 110 H 116 H 114 H Pulse Rate [ From Monitor] Pulse Rate [ Right Dorsalis Pedis] Respiratory 21 24 28 H Rate Blood Pressure 118/72 141/78 132/80 Blood Pressure [Right Arm] O2 Sat by Pulse 100 93 99 Oximetry 01/02/17 01/02/17 01/02/17 08:30 08:33 08:45 Temperature Pulse Rate 113 H Pulse Rate [ From Monitor] Pulse Rate [ Right Dorsalis Pedis] Respiratory 27 H Rate Blood Pressure 141/80 141/80 Blood Pressure [Right Arm] O2 Sat by Pulse 100 100 98 Oximetry 01/02/17 01/02/17 08:55 11:08 Temperature 98.3 F Pulse Rate Pulse Rate [ From Monitor] Pulse Rate [ 112 H Right Dorsalis Pedis] Respiratory 28 H 20 Rate Blood Pressure Blood Pressure 121/72 [Right Arm] O2 Sat by Pulse 99 Oximetry Constitutional: alert, other (critically ill) Eyes: non-icteric ENT: oropharynx moist Neck: supple Effort: normal Ascultation: Bilateral: diminished breath sounds (bases) Cardiovascular: other (tachy, RR; no mrg) Gastrointestinal: hypoactive bowel sounds, soft, tender (throughout), other ( distended 2/2 PD) Integumentary: normal Extremities: no cyanosis, no edema, pink and warm Neurologic: normal mental status, non-focal exam, pupils equal and round, CN II- XII normal Psychiatric: mood appropriate, affect normal CBC and BMP: 01/02/17 07:23 01/02/17 07:23 ABG, PT/INR, D-dimer: ABG POC ABG pH 7.382 (7.35-7.45) 12/31/16 08:57 POC ABG pCO2 38.2 (35-45) 12/31/16 08:57 POC ABG pO2 78 (80-105) L 12/31/16 08:57 POC ABG HCO3 22.7 12/31/16 08:57 POC ABG Total CO2 24 12/31/16 08:57 POC ABG O2 Sat 95 12/31/16 08:57 Abnormal lab findings: Abnormal Labs 12/31/16 12/31/16 12/31/16 08:28 08:57 13:54 WBC 18.2 H RBC 2.33 L Hgb 6.9 L Hct 21.5 L RDW 19.1 H Plt Count Lymph % (Auto) [place] % (Auto) Lymph # [place] # Seg Neutrophils % POC ABG pO2 78 L Sodium Potassium Chloride BUN Creatinine Calcium Iron Folate Crossmatch See Detail 12/31/16 12/31/16 01/01/17 21:00 21:00 05:40 WBC RBC 2.69 L Hgb 8.2 L Hct 24.5 L RDW 18.1 H Plt Count Lymph % (Auto) 13.0 L [place] % (Auto) 9.3 H Lymph # [place] # 0.9 H Seg Neutrophils % 75.8 H POC ABG pO2 Sodium Potassium Chloride BUN Creatinine Calcium Iron 17 L Folate 5.71 L Crossmatch 01/01/17 01/02/17 01/02/17 05:40 07:23 07:23 WBC RBC 2.52 L Hgb 7.8 L Hct 23.1 L RDW 18.0 H Plt Count 137 L Lymph % (Auto) 11.3 L [place] % (Auto) 7.6 H Lymph # 0.9 L [place] # Seg Neutrophils % 77.3 H POC ABG pO2 Sodium 136 L Potassium 5.2 H Chloride 93.2 L 91.2 L BUN 69 H 68 H Creatinine 19.7 H 20.0 H Calcium 8.1 L Iron Folate Crossmatch Chest x-ray: report reviewed, image reviewed
[2017-01-02] MEDS: ZOFRAN IV PRN (17:48)
[2017-01-03] MEDS: DIANEAL PD-2 W/1.5% DEXTROSE IP SCH ×4 (00:14→18:14)
[2017-01-03] MEDS: ZOSYN/NS 2.25 GM/50ML 2.25 GM/50 ML BAG IV SCH ×3 (06:37→21:49)
[2017-01-03] MEDS: HEPARIN SUB-Q SCH ×3 (06:39→21:58)
[2017-01-03 07:57] LABS: Basophils % (Auto) 0.4 % (0.0-1.8); Eosinophils % (Auto) 4.1 % (0.0-4.3); Hematocrit 22.9 % (35.5-45.6); Hemoglobin 7.6 gm/dl (11.8-15.2); Mean Corpuscular HGB Conc 33 % (32-34); Mean Corpuscular Hemoglobin 30 pg (28-32); Mean Corpuscular Volume 91 fl (84-94); Platelet Count 136 K/mm3 (140-440); Red Blood Count 2.52 M/mm3 (3.65-5.03); Red Cell Distribution Width 17.2 % (13.2-15.2); White Blood Count 5.8 K/mm3 (4.5-11.0)
[2017-01-03 08:16] LABS: BUN/Creatinine Ratio 3.4; Calcium 7.9 mg/dL (8.4-10.2); Chloride 93.9 mmol/L (98-107); Potassium 4.2 mmol/L (3.6-5.0)
[2017-01-03] MEDS: ROCALTROL PO SCH (09:22)
[2017-01-03] MEDS: SENSIPAR PO SCH (09:22)
[2017-01-03] MEDS: ZYLOPRIM PO SCH (09:23)
--- NOTE | 2017-01-03 09:55 | Progress Note ---
Assessment and Plan Assessment: 1. acute peritonitis in the setting of PD 2. ESRD on PD 3. Sepsis with hypotension 4. Anemia, acute blood loss anemia superimposed on chronic anemia of ESRD 5. h/o Type 2 DM 6. Hyperkalemia 7. lactic acidosis Plan: - continue ABX treatment with IV vanco and zosyn. Vanco was dedosed yesterday given trough level of 5. Bcx/PD fluid culture NGTD, will continue empiric therapy with IV vanco and zosyn. Will repeat PD fluid cell count, culture in AM. If WBC count trending down and patient continues to recover clinically, may consider d/c on IP vanco and po cipro in 2-3days, to complete ABX total of 14days - BP stabilized with IV NS/blood transfusion. to maintain MAP >65mmHg - Hb at 7.6. consider GI consult if Hb continues to trend down. continue epo [id number] sc q week. monitor CBC - continue CAPD with 4 exchanges of 1.5% Dineal, dwell volume decreased to 2L given abd distension/pain. Will monitor I/Os, electrolytes and renal parameters closely and adjust PD regimen accordingly. Subjective Date of service: 01/03/17 Principal diagnosis: Sepsis Interval history: patient awake, alert, reports improving abdominal pain, denies fever, chills, n/ v/d. Objective - Vital Signs Vital signs: Vital Signs - 12hr 01/02/17 01/03/17 01/03/17 22:00 00:00 03:15 Temperature 98.5 F 98.2 F Pulse Rate [ 108 H Right Dorsalis Pedis] Pulse Rate [ 95 H Right Radial] Respiratory 18 18 Rate Blood Pressure 118/61 124/58 [Right Arm] O2 Sat by Pulse 99 99 Oximetry 01/03/17 01/03/17 05:20 08:00 Temperature 98.4 F 98.2 F Pulse Rate [ 102 H Right Dorsalis Pedis] Pulse Rate [ 98 H Right Radial] Respiratory 18 20 Rate Blood Pressure 126/56 130/62 [Right Arm] O2 Sat by Pulse 100 96 Oximetry - General Appearance General appearance: well-developed, well-nourished, appears stated age EENT: ATNC, PERRL, mucous membranes moist Neck: no JVD Respiratory: Present: Clear to Ascultation Cardiology: regular, S1S2 Gastrointestinal: normal, normoactive bowel sounds, tenderness, distended, obese Integumentary: no rash, other (no edema ) Neurologic: no focal deficit, alert and oriented x3, strength 5/5, CN 3-12 intact Psychiatric: mood/affect appropriate, cooperative - Lab 01/03/17 07:35 01/03/17 07:35 Most recent lab results Calcium 7.9 mg/dL (8.4-10.2) L 01/03/17 07:35
--- NOTE | 2017-01-03 11:20 | Progress Note ---
Assessment and Plan Assessment and plan: 1. Peritonitis with resolving septic shock in patient with PD for ESRD - cotn current antibiotics. Vancomycin and Zosyn. F/u cultures; IVF boluses as needed. Repeat lactate normal. Nephrology plans to repeat PD fluid cell count , culture and a.m. If WBC count trends downward and patient continues to recover clinically, we may consider discharge on IP vancomycin and by mouth Cipro in 2-3 days. Patient to complete a total of 14 days of antibiotics. 2. End-stage renal disease on PD with peritionitis. Continue CAPD per nephrology. Continue to monitor SWATI was, electrolytes and renal parameters. 3. Acute on chronic anemia requiring transfusion- transfuse PRBC; monitor; consider GI consultation if hemoglobin continues to drop. 4. Benign HTN 5. DVT prophylaxis. SCDs. No heparin given the anemia. History Interval history: No new issues overnight. Patient states that his abdomen is still sore but much better. Hospitalist Physical - Constitutional Vitals: Temp Pulse Resp BP Pulse Ox 98.2 F 102 H 20 130/62 99 01/03/17 08:00 01/03/17 08:00 01/03/17 08:00 01/03/17 08:00 01/03/17 10:16 General appearance: Present: no acute distress, well-nourished - EENT Eyes: Present: PERRL, EOM intact ENT: hearing intact, clear oral mucosa, dentition normal - Neck Neck: Present: supple, normal ROM - Respiratory Respiratory effort: normal Respiratory: bilateral: CTA - Cardiovascular Rhythm: regular Heart Sounds: Present: S1 & S2. Absent: gallop, rub - Extremities Extremities: no ischemia, No edema, Full ROM - Abdominal General gastrointestinal: soft, non-tender, non-distended, normal bowel sounds - Integumentary Integumentary: Present: clear, warm, dry - Neurologic Neurologic: CNII-XII intact, moves all extremities Results - Labs CBC & Chem 7: 01/03/17 07:35 01/03/17 07:35 Labs: Laboratory Last Values WBC 5.8 K/mm3 (4.5-11.0) 01/03/17 07:35 RBC 2.52 M/mm3 (3.65-5.03) L 01/03/17 07:35 Hgb 7.6 gm/dl (11.8-15.2) L 01/03/17 07:35 Hct 22.9 % (35.5-45.6) L 01/03/17 07:35 MCV 91 fl (84-94) 01/03/17 07:35 MCH 30 pg (28-32) 01/03/17 07:35 MCHC 33 % (32-34) 01/03/17 07:35 RDW 17.2 % (13.2-15.2) H 01/03/17 07:35 Plt Count 136 K/mm3 (140-440) L 01/03/17 07:35 Lymph % (Auto) 15.8 % (13.4-35.0) 01/03/17 07:35 [place] % (Auto) 7.3 % (0.0-7.3) 01/03/17 07:35 Eos % (Auto) 4.1 % (0.0-4.3) 01/03/17 07:35 Baso % (Auto) 0.4 % (0.0-1.8) 01/03/17 07:35 Lymph # 0.9 K/mm3 (1.2-5.4) L 01/03/17 07:35 [place] # 0.4 K/mm3 (0.0-0.8) 01/03/17 07:35 Eos # 0.2 K/mm3 (0.0-0.4) 01/03/17 07:35 Baso # 0.0 K/mm3 (0.0-0.1) 01/03/17 07:35 Seg Neutrophils % 72.4 % (40.0-70.0) H 01/03/17 07:35 Seg Neutrophils # 4.2 K/mm3 (1.8-7.7) 01/03/17 07:35 POC ABG pH 7.382 (7.35-7.45) 12/31/16 08:57 POC ABG pCO2 38.2 (35-45) 12/31/16 08:57 POC ABG pO2 78 (80-105) L 12/31/16 08:57 POC ABG HCO3 22.7 12/31/16 08:57 POC ABG Total CO2 24 12/31/16 08:57 POC ABG O2 Sat 95 12/31/16 08:57 POC ABG Base Excess -2 12/31/16 08:57 FiO2 32 % 12/31/16 08:57 Sodium 138 mmol/L (137-145) 01/03/17 07:35 Potassium 4.2 mmol/L (3.6-5.0) 01/03/17 07:35 Chloride 93.9 mmol/L (98-107) L 01/03/17 07:35 Carbon Dioxide 22 mmol/L (22-30) 01/03/17 07:35 Anion Gap 26 mmol/L 01/03/17 07:35 BUN 67 mg/dL (9-20) H 01/03/17 07:35 Creatinine 19.7 mg/dL (0.8-1.5) H 01/03/17 07:35 Estimated GFR 3 ml/min 01/03/17 07:35 BUN/Creatinine Ratio 3.40 % 01/03/17 07:35 Glucose 103 mg/dL (75-100) H 01/03/17 07:35 Lactic Acid 0.9 mmol/L (0.7-2.0) 01/01/17 05:40 Calcium 7.9 mg/dL (8.4-10.2) L 01/03/17 07:35 Iron 17 ug/dL (49-181) L 12/31/16 21:00 Total Bilirubin 0.4 mg/dL (0.1-1.2) 12/31/16 02:39 AST 14 units/L (5-40) 12/31/16 02:39 ALT 11 units/L (7-56) 12/31/16 02:39 Alkaline Phosphatase 106 units/L (35-129) 12/31/16 02:39 Total Protein 7.0 g/dL (6.3-8.2) 12/31/16 02:39 Albumin 3.4 g/dL (3.9-5) L 12/31/16 02:39 Albumin/Globulin Ratio 0.9 % 12/31/16 02:39 Lipase 42 units/L (13-60) 12/30/16 20:36 Vitamin B12 498.9 pg/mL (211-911) 12/31/16 21:00 Folate 5.71 ng/mL (7.3-26.0) L 12/31/16 21:00 Fluid Type Peritoneal 12/31/16 02:30 Fluid Color White 12/31/16 02:30 Fluid Appearance Hazy 12/31/16 02:30 Fluid WBC 4300 /mm3 12/31/16 02:30 Fluid RBC 0 /mm3 12/31/16 02:30 Fluid Seg Neutrophils 72.0 % 12/31/16 02:30 Fluid Lymphocytes 1.0 % 12/31/16 02:30 Fluid Reactive Lymphs 0 % 12/31/16 02:30 Fluid Monocytes 15.0 % 12/31/16 02:30 Fluid Eosinophils 12.0 % 12/31/16 02:30 Fluid Basophils 0 % 12/31/16 02:30 Random Vancomycin 5.9 ug/mL (0-40.0) 01/02/17 07:23 Blood Type A POSITIVE 12/31/16 13:54 Antibody Screen Positive 12/31/16 13:54 Antibody Identification Anti-M 12/31/16 13:54 Crossmatch See Detail 12/31/16 13:54
--- NOTE | 2017-01-03 13:01 | Progress Note ---
Assessment and Plan Imp: 1. PD-catheter assocated peritonitis 2. Sepsis 3. ESRD 4. Hyperkalemia 5. Lactic acidosis 6. Anemia Rec: 1. Vanco/Zosyn; PD culture negative but clearly evidence of infection based on cell count and appearance of fluid; fluid is much less cloudly on my review today 2. PD per renal 3. DVT PPx 4. Try to mobilize ELIZABETH 5. Would wean O2 to off; doubt he needs home O2 Plan of care reviewed w/ patient, he understands/agrees Subjective Date of service: 01/03/17 Principal diagnosis: Sepsis Interval history: No events. Awake, alert. SOB better. On NC. No chest pain, cough, wheezing. States abd pain is improving. Active Medications Acetaminophen (Tylenol) 650 mg PO Q4H PRN PRN Reason: Pain MILD(1-3)/Fever >100.5/YODER Allopurinol (Zyloprim) 100 mg PO QDAY [facility] Last Admin: 01/03/17 09:23 Dose: 100 mg Calcitriol (Rocaltrol) 0.25 mcg PO QDAY [facility] Last Admin: 01/03/17 09:22 Dose: 0.25 mcg Cinacalcet (Sensipar) 30 mg PO QDAY [facility] Last Admin: 01/03/17 09:22 Dose: 30 mg Epoetin Marbin (Epogen) 20,000 unit SUB-Q Tu [facility] Last Admin: 01/01/17 11:30 Dose: 20,000 unit Heparin Sodium (Porcine) (Heparin) 5,000 unit SUB-Q Q8HR [facility] Last Admin: 01/03/17 06:39 Dose: 5,000 unit Piperacillin Sod/Tazobactam Sod (Zosyn/Ns 2.25 Gm/50ml) 2.25 gm in 50 mls @ 100 mls/hr IV Q8HR [facility] Last Admin: 01/03/17 06:37 Dose: 100 mls/hr Morphine Sulfate (Morphine) 2 mg IV Q2H PRN PRN Reason: Pain, Moderate (4-6) Last Admin: 01/02/17 17:47 Dose: 2 mg Ondansetron HCl (Zofran) 4 mg IV Q8H PRN PRN Reason: N/V unrelieved by [facility] Last Admin: 01/02/17 17:48 Dose: 4 mg Peritoneal Dialysis Solution (Dianeal Pd-2 W/1.5% Dextrose) 2,000 ml IP Q6HR [facility] Last Admin: 01/03/17 12:29 Dose: 2,000 ml Vancomycin HCl (Vancomycin Pharmacy To Dose) 1 each IV PKCONSULT [facility] PRN Reason: Protocol Objective Vital Signs - 12hr 01/03/17 01/03/17 01/03/17 03:15 05:20 08:00 Temperature 98.2 F 98.4 F 98.2 F Pulse Rate [ 102 H Right Dorsalis Pedis] Pulse Rate [ 95 H 98 H Right Radial] Respiratory 18 18 20 Rate Blood Pressure 124/58 126/56 130/62 [Right Arm] O2 Sat by Pulse 99 100 96 Oximetry 01/03/17 10:16 Temperature Pulse Rate [ Right Dorsalis Pedis] Pulse Rate [ Right Radial] Respiratory Rate Blood Pressure [Right Arm] O2 Sat by Pulse 99 Oximetry Constitutional: no acute distress, alert Eyes: non-icteric ENT: oropharynx moist Neck: supple Effort: normal Ascultation: Bilateral: diminished breath sounds (bases) Cardiovascular: regular rate and rhythm (no mrg) Gastrointestinal: hypoactive bowel sounds, soft, tender (throughout), other ( distended 2/2 PD) Integumentary: normal Extremities: no cyanosis, no edema, pink and warm Neurologic: normal mental status, non-focal exam, pupils equal and round, CN II- XII normal Psychiatric: mood appropriate, affect normal CBC and BMP: 01/03/17 07:35 01/03/17 07:35 ABG, PT/INR, D-dimer: ABG POC ABG pH 7.382 (7.35-7.45) 12/31/16 08:57 POC ABG pCO2 38.2 (35-45) 12/31/16 08:57 POC ABG pO2 78 (80-105) L 12/31/16 08:57 POC ABG HCO3 22.7 12/31/16 08:57 POC ABG Total CO2 24 12/31/16 08:57 POC ABG O2 Sat 95 12/31/16 08:57 Abnormal lab findings: Abnormal Labs 12/31/16 12/31/16 12/31/16 08:28 08:57 13:54 WBC 18.2 H RBC 2.33 L Hgb 6.9 L Hct 21.5 L RDW 19.1 H Plt Count Lymph % (Auto) [place] % (Auto) Lymph # [place] # Seg Neutrophils % POC ABG pO2 78 L Sodium Potassium Chloride BUN Creatinine Glucose Calcium Iron Folate Crossmatch See Detail 12/31/16 12/31/16 01/01/17 21:00 21:00 05:40 WBC RBC 2.69 L Hgb 8.2 L Hct 24.5 L RDW 18.1 H Plt Count Lymph % (Auto) 13.0 L [place] % (Auto) 9.3 H Lymph # [place] # 0.9 H Seg Neutrophils % 75.8 H POC ABG pO2 Sodium Potassium Chloride BUN Creatinine Glucose Calcium Iron 17 L Folate 5.71 L Crossmatch 01/01/17 01/02/17 01/02/17 05:40 07:23 07:23 WBC RBC 2.52 L Hgb 7.8 L Hct 23.1 L RDW 18.0 H Plt Count 137 L Lymph % (Auto) 11.3 L [place] % (Auto) 7.6 H Lymph # 0.9 L [place] # Seg Neutrophils % 77.3 H POC ABG pO2 Sodium 136 L Potassium 5.2 H Chloride 93.2 L 91.2 L BUN 69 H 68 H Creatinine 19.7 H 20.0 H Glucose Calcium 8.1 L Iron Folate Crossmatch 01/03/17 01/03/17 07:35 07:35 WBC RBC 2.52 L Hgb 7.6 L Hct 22.9 L RDW 17.2 H Plt Count 136 L Lymph % (Auto) [place] % (Auto) Lymph # 0.9 L [place] # Seg Neutrophils % 72.4 H POC ABG pO2 Sodium Potassium Chloride 93.9 L BUN 67 H Creatinine 19.7 H Glucose 103 H Calcium 7.9 L Iron Folate Crossmatch Chest x-ray: report reviewed, image reviewed
[2017-01-03] MEDS: MORPHINE IV PRN ×3 (13:15→21:50)
[2017-01-04] MEDS: DIANEAL PD-2 W/1.5% DEXTROSE IP SCH ×4 (00:30→18:38)
[2017-01-04] MEDS: MORPHINE IV PRN ×5 (00:30→21:24)
[2017-01-04] MEDS: HEPARIN SUB-Q SCH ×3 (06:00→21:24)
[2017-01-04] MEDS: ZOSYN/NS 2.25 GM/50ML 2.25 GM/50 ML BAG IV SCH ×3 (06:24→21:18)
[2017-01-04 07:48] LABS: Basophils % (Auto) 0.4 % (0.0-1.8); Eosinophils % (Auto) 4.5 % (0.0-4.3); Hematocrit 23.2 % (35.5-45.6); Hemoglobin 7.9 gm/dl (11.8-15.2); Mean Corpuscular HGB Conc 34 % (32-34); Mean Corpuscular Hemoglobin 31 pg (28-32); Mean Corpuscular Volume 90 fl (84-94); Platelet Count 133 K/mm3 (140-440); Red Blood Count 2.57 M/mm3 (3.65-5.03); Red Cell Distribution Width 17.1 % (13.2-15.2); White Blood Count 5.1 K/mm3 (4.5-11.0)
[2017-01-04 08:08] LABS: BUN/Creatinine Ratio 3.28; Calcium 7.9 mg/dL (8.4-10.2); Chloride 93.5 mmol/L (98-107); Potassium 4.2 mmol/L (3.6-5.0)
[2017-01-04] MEDS: SENSIPAR PO SCH (09:14)
[2017-01-04] MEDS: ROCALTROL PO SCH (09:14)
[2017-01-04] MEDS: PROTONIX PO SCH (09:14)
[2017-01-04] MEDS: ZYLOPRIM PO SCH (09:14)
--- NOTE | 2017-01-04 10:52 | Progress Note ---
Assessment and Plan Assessment and plan: Sepsis. Continue follow-up cultures. ID consultation. Peritonitis with PD for ESRD. Patient's abdominal pain is worse today. We will obtain CT scan of the abdomen and pelvis for further evaluation. End-stage renal disease on PD with peritionitis. Continue CAPD per nephrology. Continue to monitor SWATI was, electrolytes and renal parameters. Acute on chronic anemia. Transfuse PRBC as needed; monitor; consider GI consultation if hemoglobin continues to drop. Benign HTN DVT prophylaxis. SCDs. No heparin given the anemia. History Interval history: Patient states that his abdominal pain is worse today. Hospitalist Physical - Constitutional Vitals: Temp Pulse Resp BP Pulse Ox 98.3 F 106 H 18 136/74 96 01/04/17 08:00 01/04/17 08:00 01/04/17 08:00 01/04/17 08:00 01/04/17 08:35 General appearance: Present: no acute distress, well-nourished - EENT Eyes: Present: PERRL, EOM intact ENT: hearing intact, clear oral mucosa, dentition normal - Neck Neck: Present: supple, normal ROM - Respiratory Respiratory effort: normal Respiratory: bilateral: CTA - Cardiovascular Rhythm: regular Heart Sounds: Present: S1 & S2. Absent: gallop, rub - Extremities Extremities: no ischemia, No edema, Full ROM - Abdominal General gastrointestinal: soft, tender (difuse), distended (mild to moderate), normal bowel sounds Localized gastrointestinal: tender: diffuse - Integumentary Integumentary: Present: clear, warm, dry - Neurologic Neurologic: CNII-XII intact, moves all extremities Results - Labs CBC & Chem 7: 01/04/17 07:24 01/04/17 07:24 Labs: Laboratory Last Values WBC 5.1 K/mm3 (4.5-11.0) 01/04/17 07:24 RBC 2.57 M/mm3 (3.65-5.03) L 01/04/17 07:24 Hgb 7.9 gm/dl (11.8-15.2) L 01/04/17 07:24 Hct 23.2 % (35.5-45.6) L 01/04/17 07:24 MCV 90 fl (84-94) 01/04/17 07:24 MCH 31 pg (28-32) 01/04/17 07:24 MCHC 34 % (32-34) 01/04/17 07:24 RDW 17.1 % (13.2-15.2) H 01/04/17 07:24 Plt Count 133 K/mm3 (140-440) L 01/04/17 07:24 Lymph % (Auto) 15.3 % (13.4-35.0) 01/04/17 07:24 [place] % (Auto) 9.4 % (0.0-7.3) H 01/04/17 07:24 Eos % (Auto) 4.5 % (0.0-4.3) H 01/04/17 07:24 Baso % (Auto) 0.4 % (0.0-1.8) 01/04/17 07:24 Lymph # 0.8 K/mm3 (1.2-5.4) L 01/04/17 07:24 [place] # 0.5 K/mm3 (0.0-0.8) 01/04/17 07:24 Eos # 0.2 K/mm3 (0.0-0.4) 01/04/17 07:24 Baso # 0.0 K/mm3 (0.0-0.1) 01/04/17 07:24 Seg Neutrophils % 70.4 % (40.0-70.0) H 01/04/17 07:24 Seg Neutrophils # 3.6 K/mm3 (1.8-7.7) 01/04/17 07:24 POC ABG pH 7.382 (7.35-7.45) 12/31/16 08:57 POC ABG pCO2 38.2 (35-45) 12/31/16 08:57 POC ABG pO2 78 (80-105) L 12/31/16 08:57 POC ABG HCO3 22.7 12/31/16 08:57 POC ABG Total CO2 24 12/31/16 08:57 POC ABG O2 Sat 95 12/31/16 08:57 POC ABG Base Excess -2 12/31/16 08:57 FiO2 32 % 12/31/16 08:57 Sodium 139 mmol/L (137-145) 01/04/17 07:24 Potassium 4.2 mmol/L (3.6-5.0) 01/04/17 07:24 Chloride 93.5 mmol/L (98-107) L 01/04/17 07:24 Carbon Dioxide 25 mmol/L (22-30) 01/04/17 07:24 Anion Gap 25 mmol/L 01/04/17 07:24 BUN 65 mg/dL (9-20) H 01/04/17 07:24 Creatinine 19.8 mg/dL (0.8-1.5) H 01/04/17 07:24 Estimated GFR 3 ml/min 01/04/17 07:24 BUN/Creatinine Ratio 3.28 % 01/04/17 07:24 Glucose 100 mg/dL (75-100) 01/04/17 07:24 Lactic Acid 0.9 mmol/L (0.7-2.0) 01/01/17 05:40 Calcium 7.9 mg/dL (8.4-10.2) L 01/04/17 07:24 Iron 17 ug/dL (49-181) L 12/31/16 21:00 Total Bilirubin 0.4 mg/dL (0.1-1.2) 12/31/16 02:39 AST 14 units/L (5-40) 12/31/16 02:39 ALT 11 units/L (7-56) 12/31/16 02:39 Alkaline Phosphatase 106 units/L (35-129) 12/31/16 02:39 Total Protein 7.0 g/dL (6.3-8.2) 12/31/16 02:39 Albumin 3.4 g/dL (3.9-5) L 12/31/16 02:39 Albumin/Globulin Ratio 0.9 % 12/31/16 02:39 Lipase 42 units/L (13-60) 12/30/16 20:36 Vitamin B12 498.9 pg/mL (211-911) 12/31/16 21:00 Folate 5.71 ng/mL (7.3-26.0) L 12/31/16 21:00 Fluid Type Peritoneal 12/31/16 02:30 Fluid Color White 12/31/16 02:30 Fluid Appearance Hazy 12/31/16 02:30 Fluid WBC 4300 /mm3 12/31/16 02:30 Fluid RBC 0 /mm3 12/31/16 02:30 Fluid Seg Neutrophils 72.0 % 12/31/16 02:30 Fluid Lymphocytes 1.0 % 12/31/16 02:30 Fluid Reactive Lymphs 0 % 12/31/16 02:30 Fluid Monocytes 15.0 % 12/31/16 02:30 Fluid Eosinophils 12.0 % 12/31/16 02:30 Fluid Basophils 0 % 12/31/16 02:30 Random Vancomycin 5.9 ug/mL (0-40.0) 01/02/17 07:23 Blood Type A POSITIVE 12/31/16 13:54 Antibody Screen Positive 12/31/16 13:54 Antibody Identification Anti-M 12/31/16 13:54 Crossmatch See Detail 12/31/16 13:54
[2017-01-04] MEDS ORDERED: NACL ONE (11:28)
--- NOTE | 2017-01-04 12:56 | Consultation ---
History of Present Illness - Reason for Consult Consult date: 01/04/17 Peritonitis Requesting physician: ADRIEL OAKLEY - History of Present Illness Candido Fuller is a 46 y/o male with ESRD on CAPD, hypertension and type 2 DM who was admitted to [facility] on 12/31/16 with abdominal pain, chills and increasing global weakness and 1-2 days of cloudy PD fluid. He was found to have a leukocytosis and an elevate PD fluid WBC. He did not have any subjective fevers , nausea, vomiting or diarrhea. Currently he still is having significant pain in especially the epigastric region but notes that it is "some improved." He is status post a DDKT at [facility] in 1998 which she states was functional for 17 years but then failed and subsequently he was on maintenance hemodialysis but was transitioned to peritoneal dialysis approximately 4 months ago when AV access he came a problem. He has not had any previous episodes of peritonitis. He has not been on any recent immunosuppressants. Review of systems General: See HPI HEENT: no odynophagia, no dysphagia, no oral lesions, no vision changes CV: no chest pain, no palpitations Chest: no dyspnea, no cough GI: See HPI : no change in urinary frequency, no dysuria, no hematuria. Makes only minimal urine. Skin: no rashes; Ext: No muscle or joint pain , No edema Neuro: no headaches, no numbness/tingling, no tremors Endocrine: No history of diabetes. Psych: no anxiety, no depression Infectious diseases: No HIV risk factors, No history of STDs, No significant travel or animal contact history. Past History Past Medical History: anemia, diabetes, dialysis, ESRD, hypertension Past Surgical History: Other (Multiple AV grafts, Multiple Permacaths, Kidney transplants in 1991, 1998, Pericardial window) Social history: , lives with family, full code. denies: smoking, alcohol abuse, prescription drug abuse, IV drug use Family history: hypertension Medications and Allergies Allergies Allergy/AdvReac Type Severity Reaction Status Date / Time No Known Allergies Allergy Verified 09/09/15 13:26 Home Medications Medication Instructions Recorded Confirmed Last Taken Type Metoprolol [Lopressor TAB] 100 mg PO BID 09/09/15 12/30/16 06/25/16 05:30 History Calcitriol [Rocaltrol] 0.25 mcg PO QDAY #30 capsule 09/12/15 12/30/16 06/24/16 Rx NIFEdipine XL [Procardia Xl] 30 mg PO QDAY #30 tablet 03/01/16 12/30/16 Rx Allopurinol 100 mg PO QDAY 06/18/16 12/30/16 06/24/16 History Cinacalcet [Sensipar] 30 mg PO QDAY 12/30/16 12/30/16 Unknown History Naproxen [Naprosyn] 500 mg PO BID 12/30/16 12/30/16 Unknown History Sevelamer Carbonate [Renvela] 800 mg PO TIDWM 12/30/16 12/30/16 Unknown History Active Meds: Active Medications Acetaminophen (Tylenol) 650 mg PO Q4H PRN PRN Reason: Pain MILD(1-3)/Fever >100.5/YODER Allopurinol (Zyloprim) 100 mg PO QDAY [facility] Last Admin: 01/04/17 09:14 Dose: 100 mg Calcitriol (Rocaltrol) 0.25 mcg PO QDAY [facility] Last Admin: 01/04/17 09:14 Dose: 0.25 mcg Cinacalcet (Sensipar) 30 mg PO QDAY [facility] Last Admin: 01/04/17 09:14 Dose: 30 mg Epoetin Marbin (Epogen) 20,000 unit SUB-Q Tu [facility] Last Admin: 01/01/17 11:30 Dose: 20,000 unit Heparin Sodium (Porcine) (Heparin) 5,000 unit SUB-Q Q8HR [facility] Last Admin: 01/04/17 06:00 Dose: 5,000 unit Piperacillin Sod/Tazobactam Sod (Zosyn/Ns 2.25 Gm/50ml) 2.25 gm in 50 mls @ 100 mls/hr IV Q8HR [facility] Last Admin: 01/04/17 06:24 Dose: 100 mls/hr Morphine Sulfate (Morphine) 2 mg IV Q2H PRN PRN Reason: Pain, Moderate (4-6) Last Admin: 01/04/17 08:45 Dose: 2 mg Ondansetron HCl (Zofran) 4 mg IV Q8H PRN PRN Reason: N/V unrelieved by Reglan Last Admin: 01/02/17 17:48 Dose: 4 mg Pantoprazole Sodium (Protonix) 40 mg PO QDAY [facility] Last Admin: 01/04/17 09:14 Dose: 40 mg Peritoneal Dialysis Solution (Dianeal Pd-2 W/1.5% Dextrose) 2,000 ml IP Q6HR [facility] Last Admin: 01/04/17 06:00 Dose: 2,000 ml Vancomycin HCl (Vancomycin Pharmacy To Dose) 1 each IV PKCONSULT [facility] PRN Reason: Protocol Physical Examination - Physical Exam Narrative exam: GENERAL: Well-developed, well-nourished appearing who is alert and in no acute distress. HEAD: Normocephalic. No lesions seen. EYES: Pupils are equal reactive to light and accommodation. There is no scleral icterus. Optic fundi are not examined. EARS: Tympanic membranes are normal. THROAT: Oropharynx is normal with no evidence of oral candidiasis or pharyngitis. NECK: Supple. No enlargement of the thyroid gland. No significant cervical lymphadenopathy. No jugular venous distention at 30. LUNGS: Clear with no adventitious sounds. HEART: Regular rate. S1 and S2 are normal. There are no clicks or rubs heard. No S3; + S4; II/ DODIE heard best over the left upper sternal border. ABDOMEN: Soft, somewhat distended with dialysate dwelling with diffuse tenderness that is most pronounced in the epigastric area. Guarding and rebound tenderness are present. Liver and spleen are not palpably enlarged or tender. No palpable masses. Bowel sounds are normoactive. PD catheter shows no evidence of infection at the insertion site. Well-healed surgical scar from previous transplant. EXTREMITIES: No rash, peripheral lymphadenopathy, clubbing or edema. Multiple scars from previous AV accesses with no signs of infection. : Normal external male NEUROLOGIC: No focal findings. - Constitutional Vitals: Vital Signs Temp Pulse Resp BP Pulse Ox 98.3 F 106 H 18 136/74 96 01/04/17 08:00 01/04/17 08:00 01/04/17 08:00 01/04/17 08:00 01/04/17 08:35 Temperature -Last 24 Hours Temperature 98.3 F Temperature 98.6 F Temperature 98.2 F Temperature 98.1 F Results - Labs CBC & Chem 7: 01/04/17 07:24 01/04/17 07:24 Labs: Abnormal lab results Laboratory Tests 12/31/16 02:30 Fluid WBC 4300 Fluid RBC 0 Fluid Seg Neutrophils 72.0 Fluid Lymphocytes 1.0 Fluid Monocytes 15.0 Fluid Eosinophils 12.0 Microbiology 12/30/16 20:36 Peripheral/Venous Blood Culture - Preliminary NO GROWTH AFTER 4 DAYS 12/30/16 20:51 Peripheral/Venous Blood Culture - Preliminary NO GROWTH AFTER 4 DAYS 12/30/16 21:24 Abdomen Wound Culture - Final 12/31: No PD fluid sent for culture Assessment and Plan Current antibiotics: Vancomycin pulse dosed 12/31 --> Zosyn 2.25 g IV q8h 12/31 --> ASSESSMENT: Candido Fuller is a 46 y/o male with ESRD on CAPD, hypertension and type 2 DM who was admitted to [facility] on 12/31/16 with abdominal pain, chills and increasing global weakness and 1-2 days of cloudy PD fluid. He was found to have a leukocytosis and an elevate PD fluid WBC. Problem list: 1. Peritoneal dialysis associated peritonitis -Abdominal pain and chills and leukocytosis -PD fluid on admission with 4300 WBC, 72% PMNs -No culture or Gram stain done -Somewhat clinically improved on broad-spectrum therapy 2. End-stage renal failure -Chronic peritoneal dialysis X ~ 4 months -Previous hemodialysis which had to be transitioned to PD because of lack of AV access 3. Status post DDKT 1998 -Functional 17 years before becoming nonfunctional 4. Type 2 diabetes mellitus 5. Hypertension 6. Leukocytosis -Secondary to #1 -Resolved 7. Anemia PLAN: 1. Continue current therapy for now 2. Discussed with Dr. Torres and repeat PD fluid analysis and culture were ordered 3. Glycemic control 4. Continued observation Thank you for this consultation. We will follow with you. Olu Christina MD [facility] Office: [phone]
--- NOTE | 2017-01-04 13:31 | Cat Scan Report ---
CT scan of abdomen and pelvis with IV contrast: Compared to 08/13/16. History: Peritonitis, persistent abdominal pain. Findings: Minimal bilateral pleural effusion with bibasilar compressive atelectasis. No pericardial effusion. Borderline enlargement of liver. Normal spleen. Normal pancreas. No calculi in the gallbladder. No pericholecystic fluid. Retained food particles in fluid distended stomach. Moderate amount of ascitic fluid. Normal adrenals. Atrophic kidneys with cortical thinning and multiple cysts. No interval change. Normal bladder. In situ drainage catheter with tip in the pelvis. Normal appendix. Gaseous colon with small volume stool in colon. Few distended loops of small bowel with fluid levels. No definite transition point noted. Impression: Moderate amount of ascites. Atrophic kidneys with cysts bilaterally without interval change. Probable incomplete small bowel obstruction. Transition zone not clearly identified. Probably in the left lower quadrant region. Additional findings as detailed above.
--- NOTE | 2017-01-04 14:38 | Progress Note ---
Assessment and Plan Imp: 1. PD-catheter assocated peritonitis 2. Sepsis 3. ESRD 4. Hyperkalemia 5. Lactic acidosis 6. Anemia Rec: 1. Vanco/Zosyn; PD culture negative but clearly evidence of infection based on cell count and appearance of fluid; ID on board now; CT a/p ordered per primary 2. PD per renal 3. DVT PPx 4. Try to mobilize ELIZABETH 5. Would wean O2 to off; doubt he needs home O2 Plan of care reviewed w/ patient, he understands/agrees Subjective Date of service: 01/04/17 Principal diagnosis: Sepsis Interval history: No events. Awake, alert. SOB better. On NC. No chest pain, cough, wheezing. States abd pain is improving. Active Medications Acetaminophen (Tylenol) 650 mg PO Q4H PRN PRN Reason: Pain MILD(1-3)/Fever >100.5/YODER Allopurinol (Zyloprim) 100 mg PO QDAY [facility] Last Admin: 01/04/17 09:14 Dose: 100 mg Calcitriol (Rocaltrol) 0.25 mcg PO QDAY [facility] Last Admin: 01/04/17 09:14 Dose: 0.25 mcg Cinacalcet (Sensipar) 30 mg PO QDAY [facility] Last Admin: 01/04/17 09:14 Dose: 30 mg Epoetin Marbin (Epogen) 20,000 unit SUB-Q Tu [facility] Last Admin: 01/01/17 11:30 Dose: 20,000 unit Heparin Sodium (Porcine) (Heparin) 5,000 unit SUB-Q Q8HR [facility] Last Admin: 01/04/17 13:23 Dose: 5,000 unit Piperacillin Sod/Tazobactam Sod (Zosyn/Ns 2.25 Gm/50ml) 2.25 gm in 50 mls @ 100 mls/hr IV Q8HR [facility] Last Admin: 01/04/17 13:25 Dose: 100 mls/hr Morphine Sulfate (Morphine) 2 mg IV Q2H PRN PRN Reason: Pain, Moderate (4-6) Last Admin: 01/04/17 08:45 Dose: 2 mg Ondansetron HCl (Zofran) 4 mg IV Q8H PRN PRN Reason: N/V unrelieved by Dell Last Admin: 01/02/17 17:48 Dose: 4 mg Pantoprazole Sodium (Protonix) 40 mg PO QDAY [facility] Last Admin: 01/04/17 09:14 Dose: 40 mg Peritoneal Dialysis Solution (Dianeal Pd-2 W/1.5% Dextrose) 2,000 ml IP Q6HR [facility] Last Admin: 01/04/17 13:36 Dose: 2,000 ml Vancomycin HCl (Vancomycin Pharmacy To Dose) 1 each IV PKCONSULT [facility] PRN Reason: Protocol Objective Vital Signs - 12hr 01/04/17 01/04/17 01/04/17 04:00 08:00 08:35 Temperature 98.6 F 98.3 F Pulse Rate [ 107 H 106 H Right Brachial] Respiratory 22 18 Rate Blood Pressure 133/70 136/74 [Right Arm] O2 Sat by Pulse 99 100 96 Oximetry Constitutional: no acute distress, alert Eyes: non-icteric ENT: oropharynx moist Neck: supple Effort: normal Ascultation: Bilateral: diminished breath sounds (bases) Cardiovascular: regular rate and rhythm (no mrg) Gastrointestinal: hypoactive bowel sounds, soft, tender (throughout), other ( distended 2/2 PD) Integumentary: normal Extremities: no cyanosis, no edema, pink and warm Neurologic: normal mental status, non-focal exam, pupils equal and round, CN II- XII normal Psychiatric: mood appropriate, affect normal CBC and BMP: 01/04/17 07:24 01/04/17 07:24 ABG, PT/INR, D-dimer: ABG POC ABG pH 7.382 (7.35-7.45) 12/31/16 08:57 POC ABG pCO2 38.2 (35-45) 12/31/16 08:57 POC ABG pO2 78 (80-105) L 12/31/16 08:57 POC ABG HCO3 22.7 12/31/16 08:57 POC ABG Total CO2 24 12/31/16 08:57 POC ABG O2 Sat 95 12/31/16 08:57 Abnormal lab findings: Abnormal Labs 12/31/16 12/31/16 12/31/16 08:28 08:57 13:54 WBC 18.2 H RBC 2.33 L Hgb 6.9 L Hct 21.5 L RDW 19.1 H Plt Count Lymph % (Auto) Gage % (Auto) Eos % (Auto) Lymph # Gage # Seg Neutrophils % POC ABG pO2 78 L Sodium Potassium Chloride BUN Creatinine Glucose Calcium Iron Folate Crossmatch See Detail 12/31/16 12/31/16 01/01/17 21:00 21:00 05:40 WBC RBC 2.69 L Hgb 8.2 L Hct 24.5 L RDW 18.1 H Plt Count Lymph % (Auto) 13.0 L Gage % (Auto) 9.3 H Eos % (Auto) Lymph # Gage # 0.9 H Seg Neutrophils % 75.8 H POC ABG pO2 Sodium Potassium Chloride BUN Creatinine Glucose Calcium Iron 17 L Folate 5.71 L Crossmatch 01/01/17 01/02/17 01/02/17 05:40 07:23 07:23 WBC RBC 2.52 L Hgb 7.8 L Hct 23.1 L RDW 18.0 H Plt Count 137 L Lymph % (Auto) 11.3 L Gage % (Auto) 7.6 H Eos % (Auto) Lymph # 0.9 L Gage # Seg Neutrophils % 77.3 H POC ABG pO2 Sodium 136 L Potassium 5.2 H Chloride 93.2 L 91.2 L BUN 69 H 68 H Creatinine 19.7 H 20.0 H Glucose Calcium 8.1 L Iron Folate Crossmatch 01/03/17 01/03/17 01/04/17 07:35 07:35 07:24 WBC RBC 2.52 L 2.57 L Hgb 7.6 L 7.9 L Hct 22.9 L 23.2 L RDW 17.2 H 17.1 H Plt Count 136 L 133 L Lymph % (Auto) Gage % (Auto) 9.4 H Eos % (Auto) 4.5 H Lymph # 0.9 L 0.8 L Gage # Seg Neutrophils % 72.4 H 70.4 H POC ABG pO2 Sodium Potassium Chloride 93.9 L BUN 67 H Creatinine 19.7 H Glucose 103 H Calcium 7.9 L Iron Folate Crossmatch 01/04/17 07:24 WBC RBC Hgb Hct RDW Plt Count Lymph % (Auto) Gage % (Auto) Eos % (Auto) Lymph # Gage # Seg Neutrophils % POC ABG pO2 Sodium Potassium Chloride 93.5 L BUN 65 H Creatinine 19.8 H Glucose Calcium 7.9 L Iron Folate Crossmatch Chest x-ray: report reviewed, image reviewed
--- NOTE | 2017-01-04 14:56 | Progress Note ---
Assessment and Plan Assessment: 1. acute peritonitis in the setting of PD 2. ESRD on PD 3. Sepsis with hypotension 4. Anemia, acute blood loss anemia superimposed on chronic anemia of ESRD 5. h/o Type 2 DM 6. Hyperkalemia 7. lactic acidosis Plan: - continue ABX treatment with IV vanco and zosyn. check vanco trough and redose if <5. Bcx NGTD, will continue empiric therapy with IV vanco and zosyn. sent repeat PD fluid cell count, culture this AM. D/w Dr. Christina, appreciate ID consult. CT A/P shows possible incomplete SBO. continue physical therapy, increase activity, OOB - BP stabilized maintain MAP >65mmHg - Hb at 7.9. continue epo 42300L sc q week. monitor CBC - continue CAPD with 4 exchanges of 1.5% Dineal, dwell volume decreased to 2L given abd distension/pain. Will monitor I/Os, electrolytes and renal parameters closely and adjust PD regimen accordingly. Subjective Date of service: 01/04/17 Principal diagnosis: Sepsis Interval history: patient with persistent abdominal pain. denies fever, chills, n/v/d. passing flatus, but no BMs. Objective - Vital Signs Vital signs: Vital Signs - 12hr 01/04/17 01/04/17 01/04/17 04:00 08:00 08:35 Temperature 98.6 F 98.3 F Pulse Rate [ 107 H 106 H Right Brachial] Respiratory 22 18 Rate Blood Pressure 133/70 136/74 [Right Arm] O2 Sat by Pulse 99 100 96 Oximetry - General Appearance General appearance: well-developed, well-nourished, appears stated age EENT: ATNC, PERRL, mucous membranes moist Neck: no JVD Respiratory: Present: Clear to Ascultation Cardiology: regular, S1S2 Gastrointestinal: hypoactive bowel sounds, tenderness, distended Integumentary: no rash, other Neurologic: no focal deficit, alert and oriented x3, strength 5/5, CN 3-12 intact Psychiatric: mood/affect appropriate, cooperative - Lab 01/04/17 07:24 01/04/17 07:24 Most recent lab results Calcium 7.9 mg/dL (8.4-10.2) L 01/04/17 07:24
[2017-01-05] MEDS: DIANEAL PD-2 W/1.5% DEXTROSE IP SCH ×4 (00:05→19:36)
[2017-01-05] MEDS: MORPHINE IV PRN ×3 (01:15→16:23)
[2017-01-05] MEDS: ZOSYN/NS 2.25 GM/50ML 2.25 GM/50 ML BAG IV SCH ×3 (06:26→23:54)
[2017-01-05] MEDS: HEPARIN SUB-Q SCH ×2 (06:27→16:23)
[2017-01-05 06:33] LABS: Basophils % (Auto) 0.4 % (0.0-1.8); Eosinophils % (Auto) 4.9 % (0.0-4.3); Hematocrit 21.9 % (35.5-45.6); Hemoglobin 7.2 gm/dl (11.8-15.2); Mean Corpuscular HGB Conc 33 % (32-34); Mean Corpuscular Hemoglobin 30 pg (28-32); Mean Corpuscular Volume 92 fl (84-94); Red Blood Count 2.39 M/mm3 (3.65-5.03); Red Cell Distribution Width 17.2 % (13.2-15.2)
[2017-01-05 06:39] LABS: BUN/Creatinine Ratio 3.36; Calcium 7.8 mg/dL (8.4-10.2); Chloride 91.2 mmol/L (98-107); Potassium 4.2 mmol/L (3.6-5.0)
--- NOTE | 2017-01-05 09:36 | Progress Note ---
Assessment and Plan Sepsis secondary to abdominal catheter infection. Improving Clinical bibasilar atelectasis. Most likely secondary to immobility and obesity. Will benefit from incentive spirometry and ambulation End-stage renal disease Morbid obesity Recommendations Incentive spirometry Out of bed twice a day Complete antibiotics as scheduled Nephrology follow-up Subjective Date of service: 01/05/17 Principal diagnosis: Sepsis Interval history: . No respiratory complaints at this time. No abdominal pain Objective Vital Signs - 12hr 01/05/17 01/05/17 00:00 04:00 Temperature 98.5 F 98.4 F Pulse Rate [ 106 H 103 H Right Brachial] Respiratory 20 20 Rate Blood Pressure 145/75 144/74 [Right Arm] O2 Sat by Pulse 97 98 Oximetry Constitutional: no acute distress, alert Eyes: non-icteric ENT: oropharynx moist Neck: supple Effort: normal Ascultation: Bilateral: diminished breath sounds (bases), rales (at bases, minimal) Cardiovascular: regular rate and rhythm (no mrg) Gastrointestinal: normoactive bowel sounds, soft, non-tender, other (morbidly obese) Integumentary: normal Extremities: no cyanosis, no edema, pink and warm Neurologic: normal mental status, non-focal exam, pupils equal and round, CN II- XII normal Psychiatric: mood appropriate, affect normal CBC and BMP: 01/05/17 06:01 01/05/17 06:01 ABG, PT/INR, D-dimer: ABG POC ABG pH 7.382 (7.35-7.45) 12/31/16 08:57 POC ABG pCO2 38.2 (35-45) 12/31/16 08:57 POC ABG pO2 78 (80-105) L 12/31/16 08:57 POC ABG HCO3 22.7 12/31/16 08:57 POC ABG Total CO2 24 12/31/16 08:57 POC ABG O2 Sat 95 12/31/16 08:57 Abnormal lab findings: Abnormal Labs 12/31/16 12/31/16 12/31/16 08:28 08:57 13:54 WBC 18.2 H RBC 2.33 L Hgb 6.9 L Hct 21.5 L RDW 19.1 H Plt Count Lymph % (Auto) Anderson % (Auto) Eos % (Auto) Lymph # Anderson # Seg Neutrophils % POC ABG pO2 78 L Sodium Potassium Chloride BUN Creatinine Glucose Calcium Iron Folate Crossmatch See Detail 12/31/16 12/31/16 01/01/17 21:00 21:00 05:40 WBC RBC 2.69 L Hgb 8.2 L Hct 24.5 L RDW 18.1 H Plt Count Lymph % (Auto) 13.0 L Anderson % (Auto) 9.3 H Eos % (Auto) Lymph # Anderson # 0.9 H Seg Neutrophils % 75.8 H POC ABG pO2 Sodium Potassium Chloride BUN Creatinine Glucose Calcium Iron 17 L Folate 5.71 L Crossmatch 01/01/17 01/02/17 01/02/17 05:40 07:23 07:23 WBC RBC 2.52 L Hgb 7.8 L Hct 23.1 L RDW 18.0 H Plt Count 137 L Lymph % (Auto) 11.3 L Anderson % (Auto) 7.6 H Eos % (Auto) Lymph # 0.9 L Anderson # Seg Neutrophils % 77.3 H POC ABG pO2 Sodium 136 L Potassium 5.2 H Chloride 93.2 L 91.2 L BUN 69 H 68 H Creatinine 19.7 H 20.0 H Glucose Calcium 8.1 L Iron Folate Crossmatch 01/03/17 01/03/17 01/04/17 07:35 07:35 07:24 WBC RBC 2.52 L 2.57 L Hgb 7.6 L 7.9 L Hct 22.9 L 23.2 L RDW 17.2 H 17.1 H Plt Count 136 L 133 L Lymph % (Auto) Anderson % (Auto) 9.4 H Eos % (Auto) 4.5 H Lymph # 0.9 L 0.8 L Anderson # Seg Neutrophils % 72.4 H 70.4 H POC ABG pO2 Sodium Potassium Chloride 93.9 L BUN 67 H Creatinine 19.7 H Glucose 103 H Calcium 7.9 L Iron Folate Crossmatch 01/04/17 01/05/17 01/05/17 07:24 06:01 06:01 WBC RBC 2.39 L Hgb 7.2 L Hct 21.9 L RDW 17.2 H Plt Count Lymph % (Auto) Anderson % (Auto) 9.1 H Eos % (Auto) 4.9 H Lymph # Anderson # Seg Neutrophils % POC ABG pO2 Sodium 136 L Potassium Chloride 93.5 L 91.2 L BUN 65 H 62 H Creatinine 19.8 H 18.4 H Glucose 73 L Calcium 7.9 L 7.8 L Iron Folate Crossmatch
[2017-01-05] MEDS: PROTONIX PO SCH (10:48)
[2017-01-05] MEDS: ROCALTROL PO SCH (10:49)
[2017-01-05] MEDS: SENSIPAR PO SCH (10:49)
[2017-01-05] MEDS: ZYLOPRIM PO SCH (10:50)
[2017-01-05] MEDS ORDERED: VANCOMYCIN VIAL 1,500 MG in NACL 0.9% 500 ML 500 ML IV ONE (11:00)
[2017-01-05 11:17] LABS: Platelet Count 157 K/mm3 (140-440)
[2017-01-05] MEDS ORDERED: REGLAN IV PRN (11:27)
--- NOTE | 2017-01-05 11:27 | Progress Note ---
Assessment and Plan Assessment and plan: Sepsis. Continue follow-up cultures. ID consultation. Peritonitis with PD for ESRD. CT scan of the abdomen and pelvis revealed incomplete small bowel obstruction. Continue supportive measures, Reglan IV, mobilize/OOB and advance diet as tolerated. End-stage renal disease on PD with peritionitis. Continue CAPD per nephrology. Continue to monitor I/O was, electrolytes and renal parameters. Acute on chronic anemia. Transfuse PRBC as needed; monitor; consider GI consultation if hemoglobin continues to drop. Benign HTN Type 2 diabetes mellitus. Continue Accu-Cheks and sliding scale insulin. DVT prophylaxis. SCDs. No heparin given the anemia. History Interval history: Patient states that he feels better today. Hospitalist Physical - Constitutional Vitals: Temp Pulse Resp BP Pulse Ox 98.4 F 103 H 20 144/74 98 01/05/17 04:00 01/05/17 04:00 01/05/17 04:00 01/05/17 04:00 01/05/17 04:00 General appearance: Present: no acute distress, well-nourished - EENT Eyes: Present: PERRL, EOM intact ENT: hearing intact, clear oral mucosa, dentition normal - Neck Neck: Present: supple, normal ROM - Respiratory Respiratory effort: normal Respiratory: bilateral: CTA - Cardiovascular Rhythm: regular Heart Sounds: Present: S1 & S2. Absent: gallop, rub - Extremities Extremities: no ischemia, No edema, Full ROM - Abdominal General gastrointestinal: soft, tender, non-distended, normal bowel sounds Localized gastrointestinal: tender: diffuse - Integumentary Integumentary: Present: clear, warm, dry - Neurologic Neurologic: CNII-XII intact, moves all extremities Results - Labs CBC & Chem 7: 01/05/17 06:01 01/05/17 06:01 Labs: Laboratory Last Values WBC 5.0 K/mm3 (4.5-11.0) 01/05/17 06:01 RBC 2.39 M/mm3 (3.65-5.03) L 01/05/17 06:01 Hgb 7.2 gm/dl (11.8-15.2) L 01/05/17 06:01 Hct 21.9 % (35.5-45.6) L 01/05/17 06:01 MCV 92 fl (84-94) 01/05/17 06:01 MCH 30 pg (28-32) 01/05/17 06:01 MCHC 33 % (32-34) 01/05/17 06:01 RDW 17.2 % (13.2-15.2) H 01/05/17 06:01 Plt Count 157 K/mm3 (140-440) 01/05/17 06:01 Lymph % (Auto) 27.8 % (13.4-35.0) 01/05/17 06:01 Navarro % (Auto) 9.1 % (0.0-7.3) H 01/05/17 06:01 Eos % (Auto) 4.9 % (0.0-4.3) H 01/05/17 06:01 Baso % (Auto) 0.4 % (0.0-1.8) 01/05/17 06:01 Lymph # 1.4 K/mm3 (1.2-5.4) 01/05/17 06:01 Navarro # 0.5 K/mm3 (0.0-0.8) 01/05/17 06:01 Eos # 0.2 K/mm3 (0.0-0.4) 01/05/17 06:01 Baso # 0.0 K/mm3 (0.0-0.1) 01/05/17 06:01 Seg Neutrophils % 57.8 % (40.0-70.0) 01/05/17 06:01 Seg Neutrophils # 2.9 K/mm3 (1.8-7.7) 01/05/17 06:01 POC ABG pH 7.382 (7.35-7.45) 12/31/16 08:57 POC ABG pCO2 38.2 (35-45) 12/31/16 08:57 POC ABG pO2 78 (80-105) L 12/31/16 08:57 POC ABG HCO3 22.7 12/31/16 08:57 POC ABG Total CO2 24 12/31/16 08:57 POC ABG O2 Sat 95 12/31/16 08:57 POC ABG Base Excess -2 12/31/16 08:57 FiO2 32 % 12/31/16 08:57 Sodium 136 mmol/L (137-145) L 01/05/17 06:01 Potassium 4.2 mmol/L (3.6-5.0) 01/05/17 06:01 Chloride 91.2 mmol/L (98-107) L 01/05/17 06:01 Carbon Dioxide 22 mmol/L (22-30) 01/05/17 06:01 Anion Gap 27 mmol/L 01/05/17 06:01 BUN 62 mg/dL (9-20) H 01/05/17 06:01 Creatinine 18.4 mg/dL (0.8-1.5) H 01/05/17 06:01 Estimated GFR 3 ml/min 01/05/17 06:01 BUN/Creatinine Ratio 3.36 % 01/05/17 06:01 Glucose 73 mg/dL (75-100) L 01/05/17 06:01 Lactic Acid 0.9 mmol/L (0.7-2.0) 01/01/17 05:40 Calcium 7.8 mg/dL (8.4-10.2) L 01/05/17 06:01 Iron 17 ug/dL (49-181) L 12/31/16 21:00 Total Bilirubin 0.4 mg/dL (0.1-1.2) 12/31/16 02:39 AST 14 units/L (5-40) 12/31/16 02:39 ALT 11 units/L (7-56) 12/31/16 02:39 Alkaline Phosphatase 106 units/L (35-129) 12/31/16 02:39 Total Protein 7.0 g/dL (6.3-8.2) 12/31/16 02:39 Albumin 3.4 g/dL (3.9-5) L 12/31/16 02:39 Albumin/Globulin Ratio 0.9 % 12/31/16 02:39 Lipase 42 units/L (13-60) 12/30/16 20:36 Vitamin B12 498.9 pg/mL (211-911) 12/31/16 21:00 Folate 5.71 ng/mL (7.3-26.0) L 12/31/16 21:00 Fluid Type Peritoneal 12/31/16 02:30 Fluid Color White 12/31/16 02:30 Fluid Appearance Hazy 12/31/16 02:30 Fluid WBC 4300 /mm3 12/31/16 02:30 Fluid RBC 0 /mm3 12/31/16 02:30 Fluid Seg Neutrophils 72.0 % 12/31/16 02:30 Fluid Lymphocytes 1.0 % 12/31/16 02:30 Fluid Reactive Lymphs 0 % 12/31/16 02:30 Fluid Monocytes 15.0 % 12/31/16 02:30 Fluid Eosinophils 12.0 % 12/31/16 02:30 Fluid Basophils 0 % 12/31/16 02:30 Random Vancomycin 11.5 ug/mL (0-40.0) 01/05/17 06:01 Blood Type A POSITIVE 12/31/16 13:54 Antibody Screen Positive 12/31/16 13:54 Antibody Identification Anti-M 12/31/16 13:54 Crossmatch See Detail 12/31/16 13:54
--- NOTE | 2017-01-05 11:50 | Progress Note ---
Assessment and Plan Current antibiotics: Vancomycin pulse dosed 12/31 --> Zosyn 2.25 g IV q8h 12/31 --> ASSESSMENT: Candido Fuller is a 46 y/o male with ESRD on CAPD, hypertension and type 2 DM who was admitted to [facility] on 12/31/16 with abdominal pain, chills and increasing global weakness and 1-2 days of cloudy PD fluid. He was found to have a leukocytosis and an elevate PD fluid WBC. Problem list: 1. Peritoneal dialysis associated peritonitis -Abdominal pain and chills and leukocytosis -PD fluid on admission with 4300 WBC, 72% PMNs -No culture or Gram stain done -Somewhat clinically improved on broad-spectrum therapy 2. End-stage renal failure -Chronic peritoneal dialysis X ~ 4 months -Previous hemodialysis which had to be transitioned to PD because of lack of AV access 3. Status post DDKT 1998 -Functional 17 years before becoming nonfunctional 4. Type 2 diabetes mellitus 5. Hypertension 6. Leukocytosis -Secondary to #1 -Resolved 7. Anemia PLAN: 1. Continue current therapy for now 2. Discussed with Dr. Torres and repeat PD fluid analysis and culture were ordered 3. Glycemic control 4. Continued observation Subjective Date of service: 01/05/17 Principal diagnosis: Sepsis Interval history: Patient initially asleep. Patient wakes easily to light tactile stimuli. Patient in no obvious distress and without voiced concerns this a.m. Patient is afebrile Objective - Exam Narrative Exam: GENERAL: Well-developed, well-nourished appearing who is alert and in no acute distress. HEAD: Normocephalic. No lesions seen. EYES: Pupils are equal reactive to light and accommodation. There is no scleral icterus. Optic fundi are not examined. EARS: No evidence of external drainage THROAT: Oropharynx is normal with no evidence of oral candidiasis or pharyngitis. NECK: Supple. No enlargement of the thyroid gland. No significant cervical lymphadenopathy. No jugular venous distention. LUNGS: Clear with no adventitious sounds. HEART: Regular rate. S1 and S2 are normal. There are no clicks or rubs heard. No S3; + S4; II/ DODIE heard best over the left upper sternal border. ABDOMEN: Soft, somewhat distended Liver and spleen are not palpably enlarged or tender. No palpable masses. Bowel sounds are normoactive. PD catheter shows no evidence of infection at the insertion site. Well-healed surgical scar from previous transplant. EXTREMITIES: No rash, peripheral lymphadenopathy, clubbing or edema. Multiple scars from previous AV accesses with no signs of infection. NEUROLOGIC: No focal findings. - Constitutional Vitals: Vital Signs Temp Pulse Resp BP Pulse Ox 98.1 F 104 H 22 120/70 98 01/05/17 08:20 01/05/17 08:20 01/05/17 08:20 01/05/17 08:20 01/05/17 08:20 Temperature -Last 24 Hours Temperature 98.1 F Temperature 98.4 F Temperature 98.5 F Temperature 98.8 F - Labs CBC & Chem 7: 01/05/17 06:01 01/05/17 06:01 Labs: Abnormal lab results 01/05/17 01/05/17 Range/Units 06:01 06:01 RBC 2.39 L (3.65-5.03) M/mm3 Hgb 7.2 L (11.8-15.2) gm/dl Hct 21.9 L (35.5-45.6) % RDW 17.2 H (13.2-15.2) % [place] % (Auto) 9.1 H (0.0-7.3) % Eos % (Auto) 4.9 H (0.0-4.3) % Sodium 136 L (137-145) mmol/L Chloride 91.2 L (98-107) mmol/L BUN 62 H (9-20) mg/dL Creatinine 18.4 H (0.8-1.5) mg/dL Glucose 73 L (75-100) mg/dL Calcium 7.8 L (8.4-10.2) mg/dL
[2017-01-05] MEDS ORDERED: MYLICON PO PRN (11:58)
--- NOTE | 2017-01-05 12:02 | Progress Note ---
Assessment and Plan Assessment: 1. acute peritonitis in the setting of PD 2. ESRD on PD 3. Sepsis with hypotension 4. Anemia, acute blood loss anemia superimposed on chronic anemia of ESRD 5. h/o Type 2 DM 6. Hyperkalemia 7. lactic acidosis Plan: - continue ABX treatment with IV vanco and zosyn. vanco trough 11, redose Vanco today, Bcx NGTD, will continue empiric therapy with IV vanco and zosyn. sent repeat PD fluid cell count, culture. Follow ID recs. CT A/P shows possible incomplete SBO. continue physical therapy, increase activity, OOB. simethicone prn. - BP stabilized maintain MAP >65mmHg - Hb at 7.2. continue epo [id number] sc q week. monitor CBC - continue CAPD with 4 exchanges of 1.5% Dineal, with 2L dwell volume for now. Will monitor I/Os, electrolytes and renal parameters closely and adjust PD regimen accordingly. Subjective Date of service: 01/05/17 Principal diagnosis: Sepsis Interval history: patient awake, alert, in NAD, feels better today, reports BMs passing flatus. decreased abdominal pain Objective - Vital Signs Vital signs: Vital Signs - 12hr 01/05/17 01/05/17 01/05/17 00:00 04:00 08:20 Temperature 98.5 F 98.4 F 98.1 F Pulse Rate [ 104 H Left Radial] Pulse Rate [ 106 H 103 H Right Brachial] Respiratory 20 20 22 Rate Blood Pressure 120/70 [Left Arm] Blood Pressure 145/75 144/74 [Right Arm] O2 Sat by Pulse 97 98 98 Oximetry - General Appearance General appearance: well-developed, well-nourished, appears stated age EENT: ATNC, PERRL, mucous membranes moist Neck: no JVD Respiratory: Present: Clear to Ascultation Cardiology: regular, S1S2 Gastrointestinal: distended, obese Integumentary: no rash, other (no edema ) Neurologic: no focal deficit, alert and oriented x3, strength 5/5, CN 3-12 intact Psychiatric: mood/affect appropriate, cooperative - Lab 01/05/17 06:01 01/05/17 06:01 Most recent lab results Calcium 7.8 mg/dL (8.4-10.2) L 01/05/17 06:01
[2017-01-06] MEDS: HEPARIN SUB-Q SCH ×4 (00:03→22:30)
[2017-01-06] MEDS: ZOFRAN IV PRN (00:06)
[2017-01-06] MEDS: MORPHINE IV PRN ×2 (00:06→07:28)
[2017-01-06] MEDS ORDERED: APRESOLINE IV PRN (01:13)
[2017-01-06] MEDS: DIANEAL PD-2 W/1.5% DEXTROSE IP SCH ×2 (02:33→13:02)
[2017-01-06] MEDS ORDERED: LOPRESSOR PO STA (06:02)
[2017-01-06] MEDS: ZOSYN/NS 2.25 GM/50ML 2.25 GM/50 ML BAG IV SCH ×3 (07:16→22:29)
[2017-01-06 09:33] LABS: Creatine Kinase 59 units/L (55-170); Creatine Kinase MB < 1.0 ng/mL (0.0-4.0)
[2017-01-06 09:46] LABS: Cholesterol 170 mg/dL (50-199); HDL Cholesterol 44 mg/dL (40-59); LDL Cholesterol,Direct 97 mg/dL (50-130); Triglycerides 148 mg/dL (2-149)
[2017-01-06] MEDS ORDERED: DULCOLAX PO PRN (09:46)
--- NOTE | 2017-01-06 09:49 | Progress Note ---
Assessment and Plan Assessment: 1. acute peritonitis in the setting of PD 2. ESRD on PD 3. Sepsis with hypotension 4. Anemia, acute blood loss anemia superimposed on chronic anemia of ESRD 5. h/o Type 2 DM 6. Hyperkalemia 7. lactic acidosis Plan: - continue ABX treatment with IV vanco and zosyn. vanco trough 11, redose Vanco today, Bcx NGTD, will continue empiric therapy with IV vanco and zosyn. repeat PD fluid cell count, culture finally sent this AM after multiple requests/ discussion with RN. Follow ID recs. - dulcolax prn for constipation. - BP stabilized - Hb at 7.2. continue epo [id number] sc q week. monitor CBC - continue CAPD with 4 exchanges of 1.5% Dineal, with 2L dwell volume for now. Will monitor I/Os, electrolytes and renal parameters closely and adjust PD regimen accordingly. Subjective Date of service: 01/06/17 Principal diagnosis: Sepsis Interval history: patient awake, alert, reports abdominal distension, constipation Objective - Vital Signs Vital signs: Vital Signs - 12hr 01/06/17 01/06/17 01/06/17 00:00 00:06 02:23 Temperature 98.8 F Pulse Rate Pulse Rate [ 114 H 120 H Left Radial] Respiratory 20 20 Rate Blood Pressure Blood Pressure 207/81 140/80 [Left Arm] O2 Sat by Pulse 99 Oximetry 01/06/17 01/06/17 01/06/17 04:00 07:28 07:31 Temperature 98.1 F Pulse Rate 120 H Pulse Rate [ 119 H Left Radial] Respiratory 20 20 Rate Blood Pressure 134/72 Blood Pressure 137/62 [Left Arm] O2 Sat by Pulse 92 Oximetry 01/06/17 08:00 Temperature 99.3 F Pulse Rate Pulse Rate [ 107 H Left Radial] Respiratory 24 Rate Blood Pressure Blood Pressure 123/76 [Left Arm] O2 Sat by Pulse 92 Oximetry - General Appearance General appearance: well-developed, well-nourished, appears stated age, obese EENT: ATNC, PERRL, mucous membranes moist Neck: no JVD Respiratory: Present: Clear to Ascultation Cardiology: regular, S1S2 Gastrointestinal: tenderness, distended Integumentary: no rash, other (no edema ) Neurologic: no focal deficit, alert and oriented x3, strength 5/5, CN 3-12 intact Psychiatric: mood/affect appropriate, cooperative - Lab 01/05/17 06:01 01/05/17 06:01 Most recent lab results Calcium 7.8 mg/dL (8.4-10.2) L 01/05/17 06:01
[2017-01-06 09:55] LABS: BUN/Creatinine Ratio 3.4; Calcium 6.7 mg/dL (8.4-10.2); Chloride 94.2 mmol/L (98-107); Potassium 4.5 mmol/L (3.6-5.0)
[2017-01-06 10:25] LABS: Hematocrit 24.9 % (35.5-45.6); Hemoglobin 7.9 gm/dl (11.8-15.2); Mean Corpuscular HGB Conc 32 % (32-34); Mean Corpuscular Hemoglobin 30 pg (28-32); Mean Corpuscular Volume 95 fl (84-94); Platelet Count 145 K/mm3 (140-440); Red Blood Count 2.63 M/mm3 (3.65-5.03); Red Cell Distribution Width 17.5 % (13.2-15.2); White Blood Count 6.3 K/mm3 (4.5-11.0)
[2017-01-06] MEDS ORDERED: MIRALAX 3350 PO PRN (11:23)
--- NOTE | 2017-01-06 11:23 | Progress Note ---
Assessment and Plan Assessment and plan: Sepsis. Continue follow-up cultures. ID consultation. Peritonitis with PD for ESRD. CT scan of the abdomen and pelvis revealed incomplete small bowel obstruction. Continue supportive measures, Reglan IV, mobilize/OOB and advance diet as tolerated. End-stage renal disease on PD with peritionitis. Continue CAPD per nephrology. Continue to monitor I/O was, electrolytes and renal parameters. Acute on chronic anemia. Transfuse PRBC as needed; monitor; consider GI consultation if hemoglobin continues to drop. Benign HTN Type 2 diabetes mellitus. Continue Accu-Cheks and sliding scale insulin. Constipation. And MiraLAX. DVT prophylaxis. SCDs. No heparin given the anemia. History Interval history: Patient states that he feels better today. However, he complains of constipated stool and some discomfort related to that. Hospitalist Physical - Constitutional Vitals: Temp Pulse Resp BP Pulse Ox 99.3 F 107 H 24 123/76 92 01/06/17 08:00 01/06/17 08:00 01/06/17 08:00 01/06/17 08:00 01/06/17 08:00 General appearance: Present: no acute distress, well-nourished - EENT Eyes: Present: PERRL, EOM intact ENT: hearing intact, clear oral mucosa, dentition normal - Neck Neck: Present: supple, normal ROM - Respiratory Respiratory effort: normal Respiratory: bilateral: CTA - Cardiovascular Rhythm: regular Heart Sounds: Present: S1 & S2. Absent: gallop, rub - Extremities Extremities: no ischemia, No edema, Full ROM - Abdominal General gastrointestinal: soft, tender, non-distended, normal bowel sounds Localized gastrointestinal: tender: diffuse - Integumentary Integumentary: Present: clear, warm, dry - Neurologic Neurologic: CNII-XII intact, moves all extremities Results - Labs CBC & Chem 7: 01/06/17 08:37 01/06/17 08:37 Labs: Laboratory Last Values WBC 6.3 K/mm3 (4.5-11.0) 01/06/17 08:37 RBC 2.63 M/mm3 (3.65-5.03) L 01/06/17 08:37 Hgb 7.9 gm/dl (11.8-15.2) L 01/06/17 08:37 Hct 24.9 % (35.5-45.6) L 01/06/17 08:37 MCV 95 fl (84-94) H D 01/06/17 08:37 MCH 30 pg (28-32) 01/06/17 08:37 MCHC 32 % (32-34) 01/06/17 08:37 RDW 17.5 % (13.2-15.2) H 01/06/17 08:37 Plt Count 145 K/mm3 (140-440) 01/06/17 08:37 Lymph % (Auto) [place] 01/06/17 08:37 [place] % (Auto) Chip Separator 01/06/17 08:37 Eos % (Auto) [place] Separ[place] 01/06/17 08:37 Baso % (Auto) [place] Separ[place] 01/06/17 08:37 Lymph # Chip Separator 01/06/17 08:37 [place] # Chip Separator 01/06/17 08:37 Eos # Chip Separator 01/06/17 08:37 Baso # Chip Separator 01/06/17 08:37 Seg Neutrophils % [place] Separ[place] 01/06/17 08:37 Seg Neutrophils # [place] Separ[place] 01/06/17 08:37 POC ABG pH 7.382 (7.35-7.45) 12/31/16 08:57 POC ABG pCO2 38.2 (35-45) 12/31/16 08:57 POC ABG pO2 78 (80-105) L 12/31/16 08:57 POC ABG HCO3 22.7 12/31/16 08:57 POC ABG Total CO2 24 12/31/16 08:57 POC ABG O2 Sat 95 12/31/16 08:57 POC ABG Base Excess -2 12/31/16 08:57 FiO2 32 % 12/31/16 08:57 Sodium 137 mmol/L (137-145) 01/06/17 08:37 Potassium 4.5 mmol/L (3.6-5.0) 01/06/17 08:37 Chloride 94.2 mmol/L (98-107) L 01/06/17 08:37 Carbon Dioxide 19 mmol/L (22-30) L 01/06/17 08:37 Anion Gap 28 mmol/L 01/06/17 08:37 BUN 62 mg/dL (9-20) H 01/06/17 08:37 Creatinine 18.2 mg/dL (0.8-1.5) H 01/06/17 08:37 Estimated GFR 3 ml/min 01/06/17 08:37 BUN/Creatinine Ratio 3.40 % 01/06/17 08:37 Glucose 70 mg/dL (75-100) L 01/06/17 08:37 Lactic Acid 0.9 mmol/L (0.7-2.0) 01/01/17 05:40 Calcium 6.7 mg/dL (8.4-10.2) L 01/06/17 08:37 Iron 17 ug/dL (49-181) L 12/31/16 21:00 Total Bilirubin 0.4 mg/dL (0.1-1.2) 12/31/16 02:39 AST 14 units/L (5-40) 12/31/16 02:39 ALT 11 units/L (7-56) 12/31/16 02:39 Alkaline Phosphatase 106 units/L (35-129) 12/31/16 02:39 Total Creatine Kinase 59 units/L (55-170) 01/06/17 08:37 CK-MB (CK-2) < 1.0 ng/mL (0.0-4.0) 01/06/17 08:37 CK-MB (CK-2) Rel Index 1.6 (0-4) 01/06/17 08:37 Troponin T 0.036 ng/mL (0.00-0.029) H 01/06/17 08:37 Total Protein 7.0 g/dL (6.3-8.2) 12/31/16 02:39 Albumin 3.4 g/dL (3.9-5) L 12/31/16 02:39 Albumin/Globulin Ratio 0.9 % 12/31/16 02:39 Triglycerides 148 mg/dL (2-149) 01/06/17 08:37 Cholesterol 170 mg/dL (50-199) 01/06/17 08:37 LDL Cholesterol Direct 97 mg/dL (50-130) 01/06/17 08:37 HDL Cholesterol 44 mg/dL (40-59) 01/06/17 08:37 Cholesterol/HDL Ratio 3.86 % 01/06/17 08:37 Lipase 42 units/L (13-60) 12/30/16 20:36 Vitamin B12 498.9 pg/mL (211-911) 12/31/16 21:00 Folate 5.71 ng/mL (7.3-26.0) L 12/31/16 21:00 Fluid Type Peritoneal 12/31/16 02:30 Fluid Color White 12/31/16 02:30 Fluid Appearance Hazy 12/31/16 02:30 Fluid WBC 4300 /mm3 12/31/16 02:30 Fluid RBC 0 /mm3 12/31/16 02:30 Fluid Seg Neutrophils 72.0 % 12/31/16 02:30 Fluid Lymphocytes 1.0 % 12/31/16 02:30 Fluid Reactive Lymphs 0 % 12/31/16 02:30 Fluid Monocytes 15.0 % 12/31/16 02:30 Fluid Eosinophils 12.0 % 12/31/16 02:30 Fluid Basophils 0 % 12/31/16 02:30 Random Vancomycin 11.5 ug/mL (0-40.0) 01/05/17 06:01 Blood Type A POSITIVE 12/31/16 13:54 Antibody Screen Positive 12/31/16 13:54 Antibody Identification Anti-M 12/31/16 13:54 Crossmatch See Detail 12/31/16 13:54
[2017-01-06] MEDS: LOPRESSOR PO SCH ×2 (12:16→22:34)
[2017-01-06] MEDS: ROCALTROL PO SCH (12:18)
[2017-01-06] MEDS: PROTONIX PO SCH (12:18)
[2017-01-06] MEDS: SENSIPAR PO SCH (12:19)
[2017-01-06] MEDS: ZYLOPRIM PO SCH (12:19)
--- NOTE | 2017-01-06 13:13 | Progress Note ---
Assessment and Plan Current antibiotics: Vancomycin pulse dosed 12/31 --> Zosyn 2.25 g IV q8h 12/31 --> ASSESSMENT: Candido Fuller is a 46 y/o male with ESRD on CAPD, hypertension and type 2 DM who was admitted to [facility] on 12/31/16 with abdominal pain, chills and increasing global weakness and 1-2 days of cloudy PD fluid. He was found to have a leukocytosis and an elevate PD fluid WBC. Problem list: 1. Peritoneal dialysis associated peritonitis -Abdominal pain and chills and leukocytosis -PD fluid on admission with 4300 WBC, 72% PMNs -No culture or Gram stain done -Somewhat clinically improved on broad-spectrum therapy 2. End-stage renal failure -Chronic peritoneal dialysis X ~ 4 months -Previous hemodialysis which had to be transitioned to PD because of lack of AV access 3. Status post DDKT 1998 -Functional 17 years before becoming nonfunctional 4. Type 2 diabetes mellitus 5. Hypertension 6. Leukocytosis -Secondary to #1 -Resolved 7. Anemia PLAN: 1. Continue current therapy for now 2. Repeat peritoneal fluid culture pending. 3. Glycemic control as per Hospitalist 4. Continued observation Subjective Date of service: 01/06/17 Principal diagnosis: Sepsis Interval history: Denies abdominal pain. PD fluid yellowish in color. No purulence. Objective - Exam Narrative Exam: GENERAL: Well-developed, well-nourished appearing who is alert and in no acute distress. Morbidly obese. HEAD: Normocephalic. No lesions seen. EYES: Pupils are equal reactive to light and accommodation. There is no scleral icterus. Optic fundi are not examined. EARS: No evidence of external drainage THROAT: Oropharynx is normal with no evidence of oral candidiasis or pharyngitis. NECK: Supple. No enlargement of the thyroid gland. No significant cervical lymphadenopathy. No jugular venous distention. LUNGS: Clear with no adventitious sounds. HEART: Regular rate. S1 and S2 are normal. There are no clicks or rubs heard. No S3; + S4; II/ DODIE heard best over the left upper sternal border. ABDOMEN: Soft, somewhat distended Liver and spleen are not palpably enlarged or tender. No palpable masses. Bowel sounds are normoactive. PD catheter shows no evidence of infection at the insertion site. Well-healed surgical scar from previous transplant. EXTREMITIES: No rash, peripheral lymphadenopathy, clubbing or edema. Multiple scars from previous AV accesses with no signs of infection. NEUROLOGIC: No focal findings. - Constitutional Vitals: Vital Signs Temp Pulse Resp BP Pulse Ox 99.3 F 107 H 24 123/76 92 01/06/17 08:00 01/06/17 08:00 01/06/17 08:00 01/06/17 08:00 01/06/17 08:00 Temperature -Last 24 Hours Temperature 99.3 F Temperature 98.1 F Temperature 98.8 F Temperature 97.9 F - Labs CBC & Chem 7: 01/06/17 08:37 01/06/17 08:37 Labs: Abnormal lab results 01/06/17 01/06/17 01/06/17 Range/Units 08:37 08:37 08:37 RBC 2.63 L (3.65-5.03) M/mm3 Hgb 7.9 L (11.8-15.2) gm/dl Hct 24.9 L (35.5-45.6) % MCV 95 H D (84-94) fl RDW 17.5 H (13.2-15.2) % Chloride 94.2 L (98-107) mmol/L Carbon Dioxide 19 L (22-30) mmol/L BUN 62 H (9-20) mg/dL Creatinine 18.2 H (0.8-1.5) mg/dL Glucose 70 L (75-100) mg/dL Calcium 6.7 L (8.4-10.2) mg/dL Troponin T 0.036 H (0.00-0.029) ng/mL
[2017-01-06 14:07] LABS: Anisocytosis 1+; Basophils % (Manual) 0 % (0.0-1.8); Blastocytes % (Manual) 0 %; Diff Status Complete; Platelet Estimate Consistent w Auto
[2017-01-06 17:37] LABS: Basophils Body Fluid 0 %; Reactive Lymph Body Fluid 0 %
--- NOTE | 2017-01-06 21:31 | Progress Note ---
Assessment and Plan Sepsis secondary to abdominal catheter infection. Improving Clinical bibasilar atelectasis. Chest clear.No respiratory complains. End-stage renal disease Morbid obesity Recommendations Continue with incentive spirometry Out of bed,ambulate Complete antibiotics as scheduled.ID following Nephrology follow-up Will sign off Subjective Date of service: 01/06/17 Principal diagnosis: Sepsis Interval history: No respiratory complains. Objective Vital Signs - 12hr 01/06/17 01/06/17 16:00 20:15 Temperature 98.6 F Pulse Rate [ 107 H Left Radial] Respiratory 20 Rate Blood Pressure 143/80 [Left Arm] O2 Sat by Pulse 95 Oximetry Constitutional: no acute distress, alert Eyes: non-icteric ENT: oropharynx moist Neck: supple Effort: normal Ascultation: Bilateral: diminished breath sounds (bases), rales (at bases, minimal) Cardiovascular: regular rate and rhythm (no mrg) Gastrointestinal: normoactive bowel sounds, soft, non-tender, other (morbidly obese) Integumentary: normal Extremities: no cyanosis, no edema, pink and warm Neurologic: normal mental status, non-focal exam, pupils equal and round, CN II- XII normal Psychiatric: mood appropriate, affect normal CBC and BMP: 01/06/17 08:37 01/06/17 08:37 ABG, PT/INR, D-dimer: ABG POC ABG pH 7.382 (7.35-7.45) 12/31/16 08:57 POC ABG pCO2 38.2 (35-45) 12/31/16 08:57 POC ABG pO2 78 (80-105) L 12/31/16 08:57 POC ABG HCO3 22.7 12/31/16 08:57 POC ABG Total CO2 24 12/31/16 08:57 POC ABG O2 Sat 95 12/31/16 08:57 Abnormal lab findings: Abnormal Labs 12/31/16 12/31/16 12/31/16 08:28 08:57 13:54 WBC 18.2 H RBC 2.33 L Hgb 6.9 L Hct 21.5 L MCV RDW 19.1 H Plt Count Lymph % (Auto) [place] % (Auto) Eos % (Auto) Lymph # [place] # Seg Neutrophils % Seg Neuts % (Manual) Lymphocytes # (Manual) POC ABG pO2 78 L Sodium Potassium Chloride Carbon Dioxide BUN Creatinine Glucose Calcium Iron Troponin T Folate Crossmatch See Detail 12/31/16 12/31/16 01/01/17 21:00 21:00 05:40 WBC RBC 2.69 L Hgb 8.2 L Hct 24.5 L MCV RDW 18.1 H Plt Count Lymph % (Auto) 13.0 L [place] % (Auto) 9.3 H Eos % (Auto) Lymph # [place] # 0.9 H Seg Neutrophils % 75.8 H Seg Neuts % (Manual) Lymphocytes # (Manual) POC ABG pO2 Sodium Potassium Chloride Carbon Dioxide BUN Creatinine Glucose Calcium Iron 17 L Troponin T Folate 5.71 L Crossmatch 01/01/17 01/02/17 01/02/17 05:40 07:23 07:23 WBC RBC 2.52 L Hgb 7.8 L Hct 23.1 L MCV RDW 18.0 H Plt Count 137 L Lymph % (Auto) 11.3 L [place] % (Auto) 7.6 H Eos % (Auto) Lymph # 0.9 L [place] # Seg Neutrophils % 77.3 H Seg Neuts % (Manual) Lymphocytes # (Manual) POC ABG pO2 Sodium 136 L Potassium 5.2 H Chloride 93.2 L 91.2 L Carbon Dioxide BUN 69 H 68 H Creatinine 19.7 H 20.0 H Glucose Calcium 8.1 L Iron Troponin T Folate Crossmatch 01/03/17 01/03/17 01/04/17 07:35 07:35 07:24 WBC RBC 2.52 L 2.57 L Hgb 7.6 L 7.9 L Hct 22.9 L 23.2 L MCV RDW 17.2 H 17.1 H Plt Count 136 L 133 L Lymph % (Auto) [place] % (Auto) 9.4 H Eos % (Auto) 4.5 H Lymph # 0.9 L 0.8 L [place] # Seg Neutrophils % 72.4 H 70.4 H Seg Neuts % (Manual) Lymphocytes # (Manual) POC ABG pO2 Sodium Potassium Chloride 93.9 L Carbon Dioxide BUN 67 H Creatinine 19.7 H Glucose 103 H Calcium 7.9 L Iron Troponin T Folate Crossmatch 01/04/17 01/05/17 01/05/17 07:24 06:01 06:01 WBC RBC 2.39 L Hgb 7.2 L Hct 21.9 L MCV RDW 17.2 H Plt Count Lymph % (Auto) [place] % (Auto) 9.1 H Eos % (Auto) 4.9 H Lymph # [place] # Seg Neutrophils % Seg Neuts % (Manual) Lymphocytes # (Manual) POC ABG pO2 Sodium 136 L Potassium Chloride 93.5 L 91.2 L Carbon Dioxide BUN 65 H 62 H Creatinine 19.8 H 18.4 H Glucose 73 L Calcium 7.9 L 7.8 L Iron Troponin T Folate Crossmatch 01/06/17 01/06/17 01/06/17 08:37 08:37 08:37 WBC RBC 2.63 L Hgb 7.9 L Hct 24.9 L MCV 95 H D RDW 17.5 H Plt Count Lymph % (Auto) [place] % (Auto) Eos % (Auto) Lymph # [place] # Seg Neutrophils % Seg Neuts % (Manual) 77.0 H Lymphocytes # (Manual) 0.9 L POC ABG pO2 Sodium Potassium Chloride 94.2 L Carbon Dioxide 19 L BUN 62 H Creatinine 18.2 H Glucose 70 L Calcium 6.7 L Iron Troponin T 0.036 H Folate Crossmatch
[2017-01-07] MEDS: MORPHINE IV PRN (03:07)
[2017-01-07] MEDS: ZOSYN/NS 2.25 GM/50ML 2.25 GM/50 ML BAG IV SCH ×3 (05:48→22:38)
[2017-01-07] MEDS: HEPARIN SUB-Q SCH ×3 (05:49→22:41)
[2017-01-07] MEDS: DIANEAL PD-2 W/1.5% DEXTROSE IP SCH ×5 (05:57→20:00)
[2017-01-07 06:37] LABS: Basophils % (Auto) 0.4 % (0.0-1.8); Eosinophils % (Auto) 3.5 % (0.0-4.3); Hemoglobin 7.4 gm/dl (11.8-15.2); Mean Corpuscular HGB Conc 34 % (32-34); Mean Corpuscular Hemoglobin 30 pg (28-32); Platelet Count 162 K/mm3 (140-440); Red Blood Count 2.43 M/mm3 (3.65-5.03); White Blood Count 6.7 K/mm3 (4.5-11.0)
[2017-01-07 06:40] LABS: Mean Corpuscular Volume 93 fl (84-94)
[2017-01-07 06:56] LABS: BUN/Creatinine Ratio 3.65; Calcium 7.1 mg/dL (8.4-10.2)
[2017-01-07 06:57] LABS: Chloride 91.8 mmol/L (98-107); Potassium 4.1 mmol/L (3.6-5.0)
[2017-01-07] MEDS: SENSIPAR PO SCH (10:08)
[2017-01-07] MEDS: ZYLOPRIM PO SCH (10:08)
[2017-01-07] MEDS: ROCALTROL PO SCH (10:08)
[2017-01-07] MEDS: PROTONIX PO SCH ×2 (10:08→22:39)
[2017-01-07] MEDS: LOPRESSOR PO SCH ×2 (10:09→22:39)
--- NOTE | 2017-01-07 10:11 | Progress Note ---
Assessment and Plan - Patient Problems (1) Peritonitis associated with peritoneal dialysis Current Visit: Yes Status: Acute Qualifiers: Encounter type: E Plan to address problem: Continue antibiotics and follow-up PD fluid cell count and cultures. (2) Abdominal pain, epigastric Current Visit: Yes Status: Acute Plan to address problem: Increase proton pump inhibitor to twice daily. If pain is still not improving, may need gastroenterology evaluation for esophagogastroduodenoscopy (3) End stage renal disease Current Visit: Yes Status: Acute Plan to address problem: We'll change peritoneal dialysis to every 4 hours with 1.5% dianeal and then 2.5 % with the last exchange at bedtime. Monitor fluid balance and make changes accordingly (4) Type 2 diabetes mellitus with diabetic chronic kidney disease Current Visit: Yes Status: Acute Qualifiers: Diabetes mellitus group home insulin use: D Chronic kidney disease stage: C Plan to address problem: Follow-up blood sugar on current medications (5) Hypertensive chronic kidney disease with stage 5 chronic kidney disease or end stage renal disease Current Visit: Yes Status: Acute Plan to address problem: Follow-up blood pressure on current medications (6) Anemia in chronic kidney disease Current Visit: No Status: Chronic Plan to address problem: Hemoglobin decreasing. Continue erythropoietin. Check stool for occult blood. Check iron stores and supplement if indicated (7) Kidney transplant failure Current Visit: No Status: Chronic Subjective Date of service: 01/07/17 Principal diagnosis: Sepsis Interval history: Patient seen lying in bed. He complains of epigastric pain. Like heartburn. It seems like an ulcer. He believes he had it in the past. Also notes some swelling in his feet. Discussed with the nurse at the bedside. Patient has been in positive fluid balance with PD every 6 hours Objective - Exam Narrative Exam: Obese, Middle-aged -[place] male lying in bed in no acute distress HEENT normocephalic atraumatic, pupils equal reactive to light, pink, clear oropharynx Neck supple, no thyromegaly no jugular venous distention CVS S1-S2 regular rate rhythm without murmur, rub or gallop Chest clear to auscultation Abdomen soft nondistended , mild epigastric tenderness, no organomegaly no bruit bowel sounds present Extremities mild edema no cyanosis or clubbing Neuro awake, alert oriented x3 no gross deficit - Vital Signs Vital signs: Vital Signs - 12hr 0201/06/17 01/06/17 22:00 22:34 23:00 Temperature 98.8 F Pulse Rate 107 H 107 H Pulse Rate [ 109 H Left Radial] Pulse Rate [ Right Brachial] Respiratory 20 Rate Respiratory 18 Rate [none] Blood Pressure 132/64 Blood Pressure 139/67 [Left Arm] O2 Sat by Pulse 95 Oximetry 01/07/17 01/07/17 01/07/17 03:07 03:37 04:25 Temperature 98.7 F Pulse Rate Pulse Rate [ 104 H Left Radial] Pulse Rate [ Right Brachial] Respiratory 20 17 20 Rate Respiratory Rate [none] Blood Pressure Blood Pressure 134/68 [Left Arm] O2 Sat by Pulse Oximetry 01/07/17 01/07/17 07:44 09:46 Temperature 98.3 F Pulse Rate Pulse Rate [ Left Radial] Pulse Rate [ 111 H Right Brachial] Respiratory 16 Rate Respiratory Rate [none] Blood Pressure Blood Pressure 135/61 [Left Arm] O2 Sat by Pulse 98 96 Oximetry - Lab 01/07/17 05:47 01/07/17 05:47 Most recent lab results Calcium 7.1 mg/dL (8.4-10.2) L 01/07/17 05:47
--- NOTE | 2017-01-07 10:32 | Progress Note ---
Assessment and Plan Assessment and plan: Sepsis. Continue follow-up cultures. ID following. Peritonitis with PD for ESRD. Continue antibiotics and follow-up PD fluid cell count and cultures. End-stage renal disease on PD with peritionitis. Continue CAPD per nephrology. Continue to monitor I/O was, electrolytes and renal parameters. Acute on chronic anemia. Transfuse PRBC as needed; monitor; consider GI consultation if hemoglobin continues to drop. Benign HTN continue antihypertensive medications. Type 2 diabetes mellitus. Continue Accu-Cheks and sliding scale insulin. Partial small bowel obstruction. Resolving. Advance diet as tolerated. Constipation. Resolved with MiraLAX DVT prophylaxis. SCDs. No heparin given the anemia. History Interval history: Patient states that he feels better today. Hospitalist Physical - Constitutional Vitals: Temp Pulse Resp BP Pulse Ox 98.3 F 111 H 16 135/61 96 01/07/17 07:44 01/07/17 10:09 01/07/17 07:44 01/07/17 10:09 01/07/17 09:46 General appearance: Present: no acute distress, well-nourished - EENT Eyes: Present: PERRL, EOM intact ENT: hearing intact, clear oral mucosa, dentition normal - Neck Neck: Present: supple, normal ROM - Respiratory Respiratory effort: normal Respiratory: bilateral: CTA - Cardiovascular Rhythm: regular Heart Sounds: Present: S1 & S2. Absent: gallop, rub - Extremities Extremities: no ischemia, No edema, Full ROM - Abdominal General gastrointestinal: soft, non-tender, non-distended, normal bowel sounds - Integumentary Integumentary: Present: clear, warm, dry - Neurologic Neurologic: CNII-XII intact, moves all extremities Results - Labs CBC & Chem 7: 01/07/17 05:47 01/07/17 05:47 Labs: Laboratory Last Values WBC 6.7 K/mm3 (4.5-11.0) 01/07/17 05:47 RBC 2.43 M/mm3 (3.65-5.03) L 01/07/17 05:47 Hgb 7.4 gm/dl (11.8-15.2) L 01/07/17 05:47 Hct 22.0 % (35.5-45.6) L 01/07/17 05:47 MCV 93 fl (84-94) 01/07/17 05:47 MCH 30 pg (28-32) 01/07/17 05:47 MCHC 34 % (32-34) 01/07/17 05:47 RDW 17.0 % (13.2-15.2) H 01/07/17 05:47 Plt Count 162 K/mm3 (140-440) 01/07/17 05:47 Lymph % (Auto) 24.1 % (13.4-35.0) 01/07/17 05:47 [place] % (Auto) 9.9 % (0.0-7.3) H 01/07/17 05:47 Eos % (Auto) 3.5 % (0.0-4.3) 01/07/17 05:47 Baso % (Auto) 0.4 % (0.0-1.8) 01/07/17 05:47 Lymph # 1.6 K/mm3 (1.2-5.4) 01/07/17 05:47 [place] # 0.7 K/mm3 (0.0-0.8) 01/07/17 05:47 Eos # 0.2 K/mm3 (0.0-0.4) 01/07/17 05:47 Baso # 0.0 K/mm3 (0.0-0.1) 01/07/17 05:47 Add Manual Diff Complete 01/06/17 08:37 Total Counted 100 01/06/17 08:37 Seg Neutrophils % 62.1 % (40.0-70.0) 01/07/17 05:47 Seg Neuts % (Manual) 77.0 % (40.0-70.0) H 01/06/17 08:37 Band Neutrophils % 0 % 01/06/17 08:37 Lymphocytes % (Manual) 14.0 % (13.4-35.0) 01/06/17 08:37 Reactive Lymphs % (Man) 0 % 01/06/17 08:37 Monocytes % (Manual) 7.0 % (0.0-7.3) 01/06/17 08:37 Eosinophils % (Manual) 2.0 % (0.0-4.3) 01/06/17 08:37 Basophils % (Manual) 0 % (0.0-1.8) 01/06/17 08:37 Metamyelocytes % 0 % 01/06/17 08:37 Myelocytes % 0 % 01/06/17 08:37 Promyelocytes % 0 % 01/06/17 08:37 Blast Cells % 0 % 01/06/17 08:37 Nucleated RBC % Not Reportable 01/06/17 08:37 Seg Neutrophils # 4.1 K/mm3 (1.8-7.7) 01/07/17 05:47 Seg Neutrophils # Man 4.9 K/mm3 (1.8-7.7) 01/06/17 08:37 Band Neutrophils # 0.0 K/mm3 01/06/17 08:37 Lymphocytes # (Manual) 0.9 K/mm3 (1.2-5.4) L 01/06/17 08:37 Abs React Lymphs (Man) 0.0 K/mm3 01/06/17 08:37 Monocytes # (Manual) 0.4 K/mm3 (0.0-0.8) 01/06/17 08:37 Eosinophils # (Manual) 0.1 K/mm3 (0.0-0.4) 01/06/17 08:37 Basophils # (Manual) 0.0 K/mm3 (0.0-0.1) 01/06/17 08:37 Metamyelocytes # 0.0 K/mm3 01/06/17 08:37 Myelocytes # 0.0 K/mm3 01/06/17 08:37 Promyelocytes # 0.0 K/mm3 01/06/17 08:37 Blast Cells # 0.0 K/mm3 01/06/17 08:37 WBC Morphology Not Reportable 01/06/17 08:37 Hypersegmented Neuts Not Reportable 01/06/17 08:37 Hyposegmented Neuts Not Reportable 01/06/17 08:37 Hypogranular Neuts Not Reportable 01/06/17 08:37 Smudge Cells Not Reportable 01/06/17 08:37 Toxic Granulation Not Reportable 01/06/17 08:37 Toxic Vacuolation Not Reportable 01/06/17 08:37 Dohle Bodies Not Reportable 01/06/17 08:37 Pelger-Huet Anomaly Not Reportable 01/06/17 08:37 Marciano Rods Not Reportable 01/06/17 08:37 Platelet Estimate Consistent w auto 01/06/17 08:37 Clumped Platelets Not Reportable 01/06/17 08:37 Plt Clumps, EDTA Not Reportable 01/06/17 08:37 Large Platelets Not Reportable 01/06/17 08:37 Giant Platelets Not Reportable 01/06/17 08:37 Platelet Satelliting Not Reportable 01/06/17 08:37 Plt Morphology Comment Not Reportable 01/06/17 08:37 RBC Morphology Not Reportable 01/06/17 08:37 Dimorphic RBCs Not Reportable 01/06/17 08:37 Polychromasia Not Reportable 01/06/17 08:37 Hypochromasia Not Reportable 01/06/17 08:37 Poikilocytosis Not Reportable 01/06/17 08:37 Anisocytosis 1+ 01/06/17 08:37 Microcytosis Not Reportable 01/06/17 08:37 Macrocytosis Not Reportable 01/06/17 08:37 Spherocytes Not Reportable 01/06/17 08:37 Pappenheimer Bodies Not Reportable 01/06/17 08:37 Sickle Cells Not Reportable 01/06/17 08:37 Target Cells Not Reportable 01/06/17 08:37 Tear Drop Cells Not Reportable 01/06/17 08:37 Ovalocytes Not Reportable 01/06/17 08:37 Helmet Cells Not Reportable 01/06/17 08:37 Bailey-Caruthers Bodies Not Reportable 01/06/17 08:37 Vidor Rings Not Reportable 01/06/17 08:37 Chago Cells Not Reportable 01/06/17 08:37 Bite Cells Not Reportable 01/06/17 08:37 Crenated Cell Not Reportable 01/06/17 08:37 Elliptocytes Not Reportable 01/06/17 08:37 Acanthocytes (Spur) Not Reportable 01/06/17 08:37 Rouleaux Not Reportable 01/06/17 08:37 Hemoglobin C Crystals Not Reportable 01/06/17 08:37 Schistocytes Not Reportable 01/06/17 08:37 Malaria parasites Not Reportable 01/06/17 08:37 Ulices Bodies Not Reportable 01/06/17 08:37 Hem Pathologist Commnt No 01/06/17 08:37 POC ABG pH 7.382 (7.35-7.45) 12/31/16 08:57 POC ABG pCO2 38.2 (35-45) 12/31/16 08:57 POC ABG pO2 78 (80-105) L 12/31/16 08:57 POC ABG HCO3 22.7 12/31/16 08:57 POC ABG Total CO2 24 12/31/16 08:57 POC ABG O2 Sat 95 12/31/16 08:57 POC ABG Base Excess -2 12/31/16 08:57 FiO2 32 % 12/31/16 08:57 Sodium 136 mmol/L (137-145) L 01/07/17 05:47 Potassium 4.1 mmol/L (3.6-5.0) 01/07/17 05:47 Chloride 91.8 mmol/L (98-107) L 01/07/17 05:47 Carbon Dioxide 25 mmol/L (22-30) 01/07/17 05:47 Anion Gap 23 mmol/L 01/07/17 05:47 BUN 61 mg/dL (9-20) H 01/07/17 05:47 Creatinine 16.7 mg/dL (0.8-1.5) H 01/07/17 05:47 Estimated GFR 4 ml/min 01/07/17 05:47 BUN/Creatinine Ratio 3.65 % 01/07/17 05:47 Glucose 64 mg/dL (75-100) L 01/07/17 05:47 Lactic Acid 0.9 mmol/L (0.7-2.0) 01/01/17 05:40 Calcium 7.1 mg/dL (8.4-10.2) L 01/07/17 05:47 Iron 17 ug/dL (49-181) L 12/31/16 21:00 Total Bilirubin 0.4 mg/dL (0.1-1.2) 12/31/16 02:39 AST 14 units/L (5-40) 12/31/16 02:39 ALT 11 units/L (7-56) 12/31/16 02:39 Alkaline Phosphatase 106 units/L (35-129) 12/31/16 02:39 Total Creatine Kinase 59 units/L (55-170) 01/06/17 08:37 CK-MB (CK-2) < 1.0 ng/mL (0.0-4.0) 01/06/17 08:37 CK-MB (CK-2) Rel Index 1.6 (0-4) 01/06/17 08:37 Troponin T 0.036 ng/mL (0.00-0.029) H 01/06/17 08:37 Total Protein 7.0 g/dL (6.3-8.2) 12/31/16 02:39 Albumin 3.4 g/dL (3.9-5) L 12/31/16 02:39 Albumin/Globulin Ratio 0.9 % 12/31/16 02:39 Triglycerides 148 mg/dL (2-149) 01/06/17 08:37 Cholesterol 170 mg/dL (50-199) 01/06/17 08:37 LDL Cholesterol Direct 97 mg/dL (50-130) 01/06/17 08:37 HDL Cholesterol 44 mg/dL (40-59) 01/06/17 08:37 Cholesterol/HDL Ratio 3.86 % 01/06/17 08:37 Lipase 42 units/L (13-60) 12/30/16 20:36 Vitamin B12 498.9 pg/mL (211-911) 12/31/16 21:00 Folate 5.71 ng/mL (7.3-26.0) L 12/31/16 21:00 Fluid Type Dialysate 01/06/17 Unknown Fluid Color Straw 01/06/17 Unknown Fluid Appearance Cloudy 01/06/17 Unknown Fluid WBC 878 /mm3 01/06/17 Unknown Fluid RBC 7 /mm3 01/06/17 Unknown Fluid Seg Neutrophils 83.0 % 01/06/17 Unknown Fluid Lymphocytes 4.0 % 01/06/17 Unknown Fluid Reactive Lymphs 0 % 01/06/17 Unknown Fluid Monocytes 9.0 % 01/06/17 Unknown Fluid Eosinophils 4.0 % 01/06/17 Unknown Fluid Basophils 0 % 01/06/17 Unknown Random Vancomycin 11.5 ug/mL (0-40.0) 01/05/17 06:01 Blood Type A POSITIVE 12/31/16 13:54 Antibody Screen Positive 12/31/16 13:54 Antibody Identification Anti-M 12/31/16 13:54 Crossmatch See Detail 12/31/16 13:54
--- NOTE | 2017-01-07 12:16 | Progress Note ---
Assessment and Plan Current antibiotics: Vancomycin pulse dosed 12/31 --> Zosyn 2.25 g IV q8h 12/31 --> ASSESSMENT: Candido Fuller is a 46 y/o male with ESRD on CAPD, hypertension and type 2 DM who was admitted to [facility] on 12/31/16 with abdominal pain, chills and increasing global weakness and 1-2 days of cloudy PD fluid. He was found to have a leukocytosis and an elevate PD fluid WBC. Problem list: 1. Peritoneal dialysis associated peritonitis -Abdominal pain and chills and leukocytosis -PD fluid on admission with 4300 WBC, 72% PMNs -No culture or Gram stain done -Improved on broad-spectrum therapy 2. End-stage renal failure -Chronic peritoneal dialysis X ~ 4 months -Previous hemodialysis which had to be transitioned to PD because of lack of AV access 3. Status post DDKT 1998 -Functional 17 years before becoming nonfunctional 4. Type 2 diabetes mellitus 5. Hypertension 6. Leukocytosis -Secondary to #1 -Resolved 7. Anemia PLAN: 1. Continue current therapy for now 2. Await PD fluid cultures but may be sterile since patient has been on antibiotics 3. Glycemic control 4. Continued observation Olu Christina MD [facility] Office: [phone] Subjective Date of service: 01/07/17 Principal diagnosis: Peritonitis; Sepsis Interval history: Pain continues to improve. Mild nausea and persistently poor appetite but no vomiting. ROS: No subjective fever or chills. No diarrhea. No shortness of breath, cough or pleuritic chest pain Objective - Exam Narrative Exam: GENERAL: Well-developed, well-nourished appearing who is alert and in no acute distress. HEAD: Normocephalic. No lesions seen. EYES: Pupils are equal reactive to light and accommodation. There is no scleral icterus. Optic fundi are not examined. EARS: Tympanic membranes are normal. THROAT: Oropharynx is normal with no evidence of oral candidiasis or pharyngitis. NECK: Supple. No enlargement of the thyroid gland. No significant cervical lymphadenopathy. No jugular venous distention at 30. LUNGS: Clear with no adventitious sounds. HEART: Regular rate. S1 and S2 are normal. There are no clicks or rubs heard. No S3; + S4; II/ DODIE heard best over the left upper sternal border. ABDOMEN: Soft, somewhat distended with dialysate dwelling with jazmyne tenderness at present. Liver and spleen are not palpably enlarged or tender. No palpable masses. Bowel sounds are normoactive. PD catheter shows no evidence of infection at the insertion site. Well-healed surgical scar from previous transplant. EXTREMITIES: No rash, peripheral lymphadenopathy, clubbing or edema. Multiple scars from previous AV accesses with no signs of infection. : Normal external male NEUROLOGIC: No focal findings. - Constitutional Vitals: Vital Signs Temp Pulse Resp BP Pulse Ox 98.3 F 111 H 16 135/61 96 01/07/17 07:44 01/07/17 10:09 01/07/17 07:44 01/07/17 10:09 01/07/17 09:46 Temperature -Last 24 Hours Temperature 98.3 F Temperature 98.7 F Temperature 98.8 F Temperature 98.6 F - Labs CBC & Chem 7: 01/07/17 05:47 01/07/17 05:47 Labs: Abnormal lab results Microbiology 01/06/17 06:00 Peritioneal Dialysate Peritoneal Dialysate Culture - Pending. Gram stain with many PMNs, NOS 12/30/16 20:36 Peripheral/Venous Blood Culture - Final NO GROWTH AFTER 5 DAYS 12/30/16 20:51 Peripheral/Venous Blood Culture - Final NO GROWTH AFTER 5 DAYS 12/30/16 21:24 Abdomen Wound Culture - Final Laboratory Tests 12/31/16 01/06/17 02:30 Unknown Fluid WBC 4300 878 Fluid RBC 0 7 Fluid Seg Neutrophils 72.0 83.0 Fluid Lymphocytes 1.0 4.0 Fluid Monocytes 15.0 9.0 Fluid Eosinophils 12.0 4.0
[2017-01-07] MEDS: DIANEAL LOW CALCIUM W/2.5% DEXTROSE IP SCH (23:58)
[2017-01-08] MEDS: MORPHINE IV PRN (02:32)
[2017-01-08] MEDS: HEPARIN SUB-Q SCH ×3 (05:32→22:13)
[2017-01-08] MEDS: ZOSYN/NS 2.25 GM/50ML 2.25 GM/50 ML BAG IV SCH ×3 (05:32→22:11)
[2017-01-08 06:23] LABS: Basophils % (Auto) 0.6 % (0.0-1.8); Eosinophils % (Auto) 4.8 % (0.0-4.3); Hematocrit 21.9 % (35.5-45.6); Hemoglobin 7.5 gm/dl (11.8-15.2); Mean Corpuscular HGB Conc 34 % (32-34); Mean Corpuscular Hemoglobin 31 pg (28-32); Platelet Count 176 K/mm3 (140-440); Red Blood Count 2.43 M/mm3 (3.65-5.03); Red Cell Distribution Width 16.6 % (13.2-15.2); White Blood Count 5.7 K/mm3 (4.5-11.0)
[2017-01-08 06:27] LABS: BUN/Creatinine Ratio 3.03; Calcium 7.2 mg/dL (8.4-10.2); Chloride 91.3 mmol/L (98-107); Potassium 3.8 mmol/L (3.6-5.0)
[2017-01-08 06:36] LABS: Mean Corpuscular Volume 92 fl (84-94)
[2017-01-08] MEDS: DIANEAL PD-2 W/1.5% DEXTROSE IP SCH ×4 (08:42→20:00)
[2017-01-08] MEDS: SENSIPAR PO SCH (10:13)
[2017-01-08] MEDS: ROCALTROL PO SCH (10:13)
[2017-01-08] MEDS: PROTONIX PO SCH ×2 (10:13→22:12)
[2017-01-08] MEDS: LOPRESSOR PO SCH ×2 (10:13→22:12)
[2017-01-08] MEDS: ZYLOPRIM PO SCH (10:15)
--- NOTE | 2017-01-08 10:37 | Progress Note ---
Assessment and Plan Current antibiotics: Vancomycin pulse dosed 12/31 --> Zosyn 2.25 g IV q8h 12/31 --> ASSESSMENT: Candido Fuller is a 46 y/o male with ESRD on CAPD, hypertension and type 2 DM who was admitted to [facility] on 12/31/16 with abdominal pain, chills and increasing global weakness and 1-2 days of cloudy PD fluid. He was found to have a leukocytosis and an elevate PD fluid WBC. Problem list: 1. Peritoneal dialysis associated peritonitis -Abdominal pain and chills and leukocytosis -PD fluid on admission with 4300 WBC, 72% PMNs -No culture or Gram stain done initially -Improved on broad-spectrum therapy -01/06 PD fluid: 878 WBC 2. End-stage renal failure -Chronic peritoneal dialysis X ~ 4 months -Previous hemodialysis which had to be transitioned to PD because of lack of AV access 3. Status post DDKT 1998 -Functional 17 years before becoming nonfunctional 4. Type 2 diabetes mellitus 5. Hypertension 6. Leukocytosis -Secondary to #1 -Resolved 7. Anemia PLAN: 1. Continue current therapy for now 2. Await PD fluid cultures but may be sterile since patient has been on antibiotics 3. If cultures remain sterile and patient continues to improve will discuss with nephrology about a possible empiric regimen of intraperitoneal antibiotics on discharge. 4. Glycemic control 5. Continued observation Olu Christina MD [facility] Office: [phone] Subjective Date of service: 01/08/17 Principal diagnosis: Peritonitis; Sepsis Interval history: Pain continues to improve. Appetite somewhat improved but still poor. No new complaints. ROS: No subjective fever or chills. No diarrhea. No shortness of breath, cough or pleuritic chest pain Objective - Exam Narrative Exam: GENERAL: Well-developed, well-nourished appearing who is alert and in no acute distress. HEAD: Normocephalic. No lesions seen. EYES: Pupils are equal reactive to light and accommodation. There is no scleral icterus. Optic fundi are not examined. EARS: Tympanic membranes are normal. THROAT: Oropharynx is normal with no evidence of oral candidiasis or pharyngitis. NECK: Supple. No enlargement of the thyroid gland. No significant cervical lymphadenopathy. No jugular venous distention at 30. LUNGS: Clear with no adventitious sounds. HEART: Regular rate. S1 and S2 are normal. There are no clicks or rubs heard. No S3; + S4; II/ DODIE heard best over the left upper sternal border. ABDOMEN: Soft, somewhat distended with dialysate dwelling with minimal tenderness at present. Liver and spleen are not palpably enlarged or tender. No palpable masses. Bowel sounds are normoactive. PD catheter shows no evidence of infection at the insertion site. Well-healed surgical scar from previous transplant. EXTREMITIES: No rash, peripheral lymphadenopathy, clubbing or edema. Multiple scars from previous AV accesses with no signs of infection. : Not examined today. NEUROLOGIC: No focal findings. - Constitutional Vitals: Vital Signs Temp Pulse Resp BP Pulse Ox 98.6 F 102 H 16 123/56 98 01/08/17 07:41 01/08/17 10:13 01/08/17 07:41 01/08/17 10:13 01/08/17 09:33 Temperature -Last 24 Hours Temperature 98.6 F Temperature 98.4 F Temperature 98.3 F - Labs CBC & Chem 7: 01/08/17 05:41 01/08/17 05:41 Labs: Abnormal lab results Microbiology 01/06/17 06:00 Peritioneal Dialysate Peritoneal Dialysate Culture - NGTD. Gram stain with many PMNs, NOS 12/30/16 20:36 Peripheral/Venous Blood Culture - Final NO GROWTH AFTER 5 DAYS 12/30/16 20:51 Peripheral/Venous Blood Culture - Final NO GROWTH AFTER 5 DAYS 12/30/16 21:24 Abdomen Wound Culture - Final Laboratory Tests 12/31/16 01/06/17 02:30 Unknown Fluid WBC 4300 878 Fluid RBC 0 7 Fluid Seg Neutrophils 72.0 83.0 Fluid Lymphocytes 1.0 4.0 Fluid Monocytes 15.0 9.0 Fluid Eosinophils 12.0 4.0
--- NOTE | 2017-01-08 15:50 | Progress Note ---
Assessment and Plan Assessment and plan: 1. Resolving Sepsis due to Peritonitis with PD for ESRD-cotn current antibiotics and f/u ID 2. End-stage renal disease on PD with peritionitis. Continue CAPD per nephrology. Continue to monitor I/O was, electrolytes and renal parameters. 3. Acute on chronic anemia- H/H stable 4. Benign HTN- continue antihypertensive medications. 5. Type 2 diabetes mellitus. Continue Accu-Cheks and sliding scale insulin. 6. Partial small bowel obstruction- Resolving. Advance diet as tolerated. 7. DVT prophylaxis. SCDs. No heparin History Interval history: f/u sepsis; peritonitis Patient seen at the bedside; no abdominal pain Hospitalist Physical - Constitutional Vitals: Temp Pulse Resp BP Pulse Ox 98.7 F 99 H 16 143/67 98 01/08/17 15:27 01/08/17 15:27 01/08/17 15:27 01/08/17 15:27 01/08/17 15:27 General appearance: Present: no acute distress, well-nourished - EENT Eyes: Present: PERRL, EOM intact. Absent: scleral icterus, conjunctival injection ENT: hearing intact, clear oral mucosa, no oropharyngeal erythema, no poor dentition - Neck Neck: Present: supple, normal ROM. Absent: enlarged thyroid, masses or JVD - Respiratory Respiratory effort: normal Respiratory: negative: CTA, diminished, rales, rhonchi, wheezing - Cardiovascular Rhythm: regular Heart Sounds: Present: S1 & S2. Absent: gallop - Extremities Extremities: no ischemia, pulses intact, pulses symmetrical, No edema Peripheral Pulses: within normal limits - Abdominal General gastrointestinal: soft, non-tender, non-distended, normal bowel sounds - Integumentary Integumentary: Present: clear - Psychiatric Psychiatric: appropriate mood/affect, cooperative - Neurologic Neurologic: CNII-XII intact Results - Labs CBC & Chem 7: 01/08/17 05:41 01/08/17 05:41 Labs: Laboratory Last Values WBC 5.7 K/mm3 (4.5-11.0) 01/08/17 05:41 RBC 2.43 M/mm3 (3.65-5.03) L 01/08/17 05:41 Hgb 7.5 gm/dl (11.8-15.2) L 01/08/17 05:41 Hct 21.9 % (35.5-45.6) L 01/08/17 05:41 MCV 92 fl (84-94) 01/08/17 05:41 MCH 31 pg (28-32) 01/08/17 05:41 MCHC 34 % (32-34) 01/08/17 05:41 RDW 16.6 % (13.2-15.2) H 01/08/17 05:41 Plt Count 176 K/mm3 (140-440) 01/08/17 05:41 Lymph % (Auto) 21.3 % (13.4-35.0) 01/08/17 05:41 [place] % (Auto) 11.2 % (0.0-7.3) H 01/08/17 05:41 Eos % (Auto) 4.8 % (0.0-4.3) H 01/08/17 05:41 Baso % (Auto) 0.6 % (0.0-1.8) 01/08/17 05:41 Lymph # 1.2 K/mm3 (1.2-5.4) 01/08/17 05:41 [place] # 0.6 K/mm3 (0.0-0.8) 01/08/17 05:41 Eos # 0.3 K/mm3 (0.0-0.4) 01/08/17 05:41 Baso # 0.0 K/mm3 (0.0-0.1) 01/08/17 05:41 Add Manual Diff Complete 01/06/17 08:37 Total Counted 100 01/06/17 08:37 Seg Neutrophils % 62.1 % (40.0-70.0) 01/08/17 05:41 Seg Neuts % (Manual) 77.0 % (40.0-70.0) H 01/06/17 08:37 Band Neutrophils % 0 % 01/06/17 08:37 Lymphocytes % (Manual) 14.0 % (13.4-35.0) 01/06/17 08:37 Reactive Lymphs % (Man) 0 % 01/06/17 08:37 Monocytes % (Manual) 7.0 % (0.0-7.3) 01/06/17 08:37 Eosinophils % (Manual) 2.0 % (0.0-4.3) 01/06/17 08:37 Basophils % (Manual) 0 % (0.0-1.8) 01/06/17 08:37 Metamyelocytes % 0 % 01/06/17 08:37 Myelocytes % 0 % 01/06/17 08:37 Promyelocytes % 0 % 01/06/17 08:37 Blast Cells % 0 % 01/06/17 08:37 Nucleated RBC % Not Reportable 01/06/17 08:37 Seg Neutrophils # 3.5 K/mm3 (1.8-7.7) 01/08/17 05:41 Seg Neutrophils # Man 4.9 K/mm3 (1.8-7.7) 01/06/17 08:37 Band Neutrophils # 0.0 K/mm3 01/06/17 08:37 Lymphocytes # (Manual) 0.9 K/mm3 (1.2-5.4) L 01/06/17 08:37 Abs React Lymphs (Man) 0.0 K/mm3 01/06/17 08:37 Monocytes # (Manual) 0.4 K/mm3 (0.0-0.8) 01/06/17 08:37 Eosinophils # (Manual) 0.1 K/mm3 (0.0-0.4) 01/06/17 08:37 Basophils # (Manual) 0.0 K/mm3 (0.0-0.1) 01/06/17 08:37 Metamyelocytes # 0.0 K/mm3 01/06/17 08:37 Myelocytes # 0.0 K/mm3 01/06/17 08:37 Promyelocytes # 0.0 K/mm3 01/06/17 08:37 Blast Cells # 0.0 K/mm3 01/06/17 08:37 WBC Morphology Not Reportable 01/06/17 08:37 Hypersegmented Neuts Not Reportable 01/06/17 08:37 Hyposegmented Neuts Not Reportable 01/06/17 08:37 Hypogranular Neuts Not Reportable 01/06/17 08:37 Smudge Cells Not Reportable 01/06/17 08:37 Toxic Granulation Not Reportable 01/06/17 08:37 Toxic Vacuolation Not Reportable 01/06/17 08:37 Dohle Bodies Not Reportable 01/06/17 08:37 Pelger-Huet Anomaly Not Reportable 01/06/17 08:37 Marciano Rods Not Reportable 01/06/17 08:37 Platelet Estimate Consistent w auto 01/06/17 08:37 Clumped Platelets Not Reportable 01/06/17 08:37 Plt Clumps, EDTA Not Reportable 01/06/17 08:37 Large Platelets Not Reportable 01/06/17 08:37 Giant Platelets Not Reportable 01/06/17 08:37 Platelet Satelliting Not Reportable 01/06/17 08:37 Plt Morphology Comment Not Reportable 01/06/17 08:37 RBC Morphology Not Reportable 01/06/17 08:37 Dimorphic RBCs Not Reportable 01/06/17 08:37 Polychromasia Not Reportable 01/06/17 08:37 Hypochromasia Not Reportable 01/06/17 08:37 Poikilocytosis Not Reportable 01/06/17 08:37 Anisocytosis 1+ 01/06/17 08:37 Microcytosis Not Reportable 01/06/17 08:37 Macrocytosis Not Reportable 01/06/17 08:37 Spherocytes Not Reportable 01/06/17 08:37 Pappenheimer Bodies Not Reportable 01/06/17 08:37 Sickle Cells Not Reportable 01/06/17 08:37 Target Cells Not Reportable 01/06/17 08:37 Tear Drop Cells Not Reportable 01/06/17 08:37 Ovalocytes Not Reportable 01/06/17 08:37 Helmet Cells Not Reportable 01/06/17 08:37 [place] Bodies Not Reportable 01/06/17 08:37 [place] Rings Not Reportable 01/06/17 08:37 [place] Cells Not Reportable 01/06/17 08:37 Bite Cells Not Reportable 01/06/17 08:37 Crenated Cell Not Reportable 01/06/17 08:37 Elliptocytes Not Reportable 01/06/17 08:37 Acanthocytes (Spur) Not Reportable 01/06/17 08:37 Rouleaux Not Reportable 01/06/17 08:37 Hemoglobin C Crystals Not Reportable 01/06/17 08:37 Schistocytes Not Reportable 01/06/17 08:37 Malaria parasites Not Reportable 01/06/17 08:37 Ulices Bodies Not Reportable 01/06/17 08:37 Hem Pathologist Commnt No 02/12/17 08:37 POC ABG pH 7.382 (7.35-7.45) 12/31/16 08:57 POC ABG pCO2 38.2 (35-45) 12/31/16 08:57 POC ABG pO2 78 (80-105) L 12/31/16 08:57 POC ABG HCO3 22.7 12/31/16 08:57 POC ABG Total CO2 24 12/31/16 08:57 POC ABG O2 Sat 95 12/31/16 08:57 POC ABG Base Excess -2 12/31/16 08:57 FiO2 32 % 12/31/16 08:57 Sodium 135 mmol/L (137-145) L 01/08/17 05:41 Potassium 3.8 mmol/L (3.6-5.0) 01/08/17 05:41 Chloride 91.3 mmol/L (98-107) L 01/08/17 05:41 Carbon Dioxide 24 mmol/L (22-30) 01/08/17 05:41 Anion Gap 24 mmol/L 01/08/17 05:41 BUN 57 mg/dL (9-20) H 01/08/17 05:41 Creatinine 18.8 mg/dL (0.8-1.5) H 01/08/17 05:41 Estimated GFR 3 ml/min 01/08/17 05:41 BUN/Creatinine Ratio 3.03 % 01/08/17 05:41 Glucose 72 mg/dL (75-100) L 01/08/17 05:41 Lactic Acid 0.9 mmol/L (0.7-2.0) 01/01/17 05:40 Calcium 7.2 mg/dL (8.4-10.2) L 01/08/17 05:41 Iron 25 ug/dL (49-181) L 01/08/17 05:41 Ferritin 1752.0 ng/mL (13.0-400.0) H 01/08/17 05:41 Total Bilirubin 0.4 mg/dL (0.1-1.2) 12/31/16 02:39 AST 14 units/L (5-40) 12/31/16 02:39 ALT 11 units/L (7-56) 12/31/16 02:39 Alkaline Phosphatase 106 units/L (35-129) 12/31/16 02:39 Total Creatine Kinase 59 units/L (55-170) 01/06/17 08:37 CK-MB (CK-2) < 1.0 ng/mL (0.0-4.0) 01/06/17 08:37 CK-MB (CK-2) Rel Index 1.6 (0-4) 01/06/17 08:37 Troponin T 0.036 ng/mL (0.00-0.029) H 01/06/17 08:37 Total Protein 7.0 g/dL (6.3-8.2) 12/31/16 02:39 Albumin 3.4 g/dL (3.9-5) L 12/31/16 02:39 Albumin/Globulin Ratio 0.9 % 12/31/16 02:39 Triglycerides 148 mg/dL (2-149) 01/06/17 08:37 Cholesterol 170 mg/dL (50-199) 01/06/17 08:37 LDL Cholesterol Direct 97 mg/dL (50-130) 01/06/17 08:37 HDL Cholesterol 44 mg/dL (40-59) 01/06/17 08:37 Cholesterol/HDL Ratio 3.86 % 01/06/17 08:37 Lipase 42 units/L (13-60) 12/30/16 20:36 Vitamin B12 498.9 pg/mL (211-911) 12/31/16 21:00 Folate 5.71 ng/mL (7.3-26.0) L 12/31/16 21:00 Fluid Type Dialysate 01/06/17 Unknown Fluid Color Straw 01/06/17 Unknown Fluid Appearance Cloudy 01/06/17 Unknown Fluid WBC 878 /mm3 01/06/17 Unknown Fluid RBC 7 /mm3 01/06/17 Unknown Fluid Diff Comment 01/06/17 Unknown Fluid Seg Neutrophils 83.0 % 01/06/17 Unknown Fluid Lymphocytes 4.0 % 01/06/17 Unknown Fluid Reactive Lymphs 0 % 01/06/17 Unknown Fluid Monocytes 9.0 % 01/06/17 Unknown Fluid Eosinophils 4.0 % 01/06/17 Unknown Fluid Basophils 0 % 01/06/17 Unknown Random Vancomycin 18.1 ug/mL (0-40.0) 01/08/17 05:41 Blood Type A POSITIVE 12/31/16 13:54 Antibody Screen Positive 12/31/16 13:54 Antibody Identification Anti-M 12/31/16 13:54 Crossmatch See Detail 12/31/16 13:54 Microbiology 01/06/17 06:00 Peritioneal Dialysate Peritoneal Dialysate Culture - Preliminary 12/30/16 20:36 Peripheral/Venous Blood Culture - Final NO GROWTH AFTER 5 DAYS 12/30/16 20:51 Peripheral/Venous Blood Culture - Final NO GROWTH AFTER 5 DAYS 12/30/16 21:24 Abdomen Wound Culture - Final
--- NOTE | 2017-01-08 19:09 | Progress Note ---
Assessment and Plan - Patient Problems (1) Peritonitis associated with peritoneal dialysis Current Visit: Yes Status: Acute Qualifiers: Encounter type: E Plan to address problem: Continue antibiotics and follow-up PD fluid cell count and cultures. Unfortunately despite order, PD fluid has still not been sent for cell count. I agree with ID recommendation to consider discharging patient on empiric antibiotics. Since culture was sent after many days on antibiotics, likely will remain sterile. (2) Abdominal pain, epigastric Current Visit: Yes Status: Acute Plan to address problem: Continue proton pump inhibitor to twice daily. GI evaluation, can be done as an outpatient if symptoms recur (3) End stage renal disease Current Visit: Yes Status: Acute Plan to address problem: Continue peritoneal dialysis with current prescription (4) Type 2 diabetes mellitus with diabetic chronic kidney disease Current Visit: Yes Status: Acute Qualifiers: Diabetes mellitus alf insulin use: D Chronic kidney disease stage: C Plan to address problem: Follow-up blood sugar on current medications (5) Hypertensive chronic kidney disease with stage 5 chronic kidney disease or end stage renal disease Current Visit: Yes Status: Acute Plan to address problem: Follow-up blood pressure on current medications (6) Anemia in chronic kidney disease Current Visit: No Status: Chronic Plan to address problem: Hemoglobin now stable so still low. Iron stores are normal. Continue erythropoietin but increase the dose (7) Kidney transplant failure Current Visit: No Status: Chronic Subjective Date of service: 01/08/17 Principal diagnosis: Peritonitis; Sepsis Interval history: Patient seen lying in bed. He is feeling better today. Abdominal pain has resolved. No nausea or vomiting. He is tolerating his diet. Objective - Exam Narrative Exam: Obese, Middle-aged -[place] male lying in bed in no acute distress HEENT normocephalic atraumatic, pupils equal reactive to light, pink, clear oropharynx Neck supple, no thyromegaly no jugular venous distention CVS S1-S2 regular rate rhythm without murmur, rub or gallop Chest clear to auscultation Abdomen soft nondistended , No tenderness, no organomegaly no bruit bowel sounds present Extremities mild edema no cyanosis or clubbing Neuro awake, alert oriented x3 no gross deficit - Vital Signs Vital signs: Vital Signs - 12hr 01/08/17 01/08/17 01/08/17 07:41 08:33 09:33 Temperature 98.6 F Pulse Rate Pulse Rate [ Left Radial] Pulse Rate [ 102 H Right Brachial] Respiratory 16 Rate Blood Pressure Blood Pressure 123/56 140/70 [Left Arm] O2 Sat by Pulse 98 98 Oximetry 01/08/17 01/08/17 01/08/17 10:13 11:55 12:40 Temperature Pulse Rate 102 H Pulse Rate [ 99 H 85 Left Radial] Pulse Rate [ Right Brachial] Respiratory Rate Blood Pressure 123/56 Blood Pressure 141/73 136/71 [Left Arm] O2 Sat by Pulse Oximetry 01/08/17 15:27 Temperature 98.7 F Pulse Rate Pulse Rate [ Left Radial] Pulse Rate [ 99 H Right Brachial] Respiratory 16 Rate Blood Pressure Blood Pressure 143/67 [Left Arm] O2 Sat by Pulse 98 Oximetry - Lab 01/08/17 05:41 01/08/17 05:41 Most recent lab results Calcium 7.2 mg/dL (8.4-10.2) L 01/08/17 05:41
[2017-01-09] MEDS: DIANEAL LOW CALCIUM W/2.5% DEXTROSE IP SCH (01:00)
[2017-01-09] MEDS: DIANEAL PD-2 W/1.5% DEXTROSE IP SCH ×3 (07:56→19:07)
[2017-01-09] MEDS: ZOSYN/NS 2.25 GM/50ML 2.25 GM/50 ML BAG IV SCH ×2 (09:15→16:31)
[2017-01-09] MEDS: HEPARIN SUB-Q SCH ×2 (09:57→19:33)
[2017-01-09] MEDS: LOPRESSOR PO SCH (10:08)
[2017-01-09] MEDS: ROCALTROL PO SCH (10:08)
[2017-01-09] MEDS: SENSIPAR PO SCH (10:08)
[2017-01-09] MEDS: ZYLOPRIM PO SCH (10:09)
[2017-01-09] MEDS: PROTONIX PO SCH (10:10)
--- NOTE | 2017-01-09 10:21 | Progress Note ---
Assessment and Plan - Patient Problems (1) Peritonitis associated with peritoneal dialysis Current Visit: Yes Status: Acute Qualifiers: Encounter type: E Plan to address problem: Continue antibiotics and follow-up PD fluid cell count. I spoke to the charge nurse today and PD fluid is finally been sent for cell count. I agree with ID recommendation to consider discharging patient on empiric antibiotics. Since culture was sent after many days on antibiotics, likely will remain sterile. (2) Abdominal pain, epigastric Current Visit: Yes Status: Acute Plan to address problem: Continue proton pump inhibitor to twice daily. GI evaluation, can be done as an outpatient if symptoms recur (3) End stage renal disease Current Visit: Yes Status: Acute Plan to address problem: Continue peritoneal dialysis with current prescription. Patient advised to use 2.5% dianeal for exchanges tonight on the cycler when he gets home. 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 Continue erythropoietin at higher dose (7) Kidney transplant failure Current Visit: No Status: Chronic Subjective Date of service: 01/09/17 Principal diagnosis: Peritonitis; Sepsis Interval history: Patient seen lying in bed. He is feeling better today. Still no abdominal pain. No nausea or vomiting. He is tolerating his diet. Tolerating peritoneal dialysis. Patient however only had about 1 L of fluid drained from the overnight 2 L dwell Objective - Exam Narrative Exam: Obese, Middle-aged -[place] male lying in bed in no acute distress HEENT normocephalic atraumatic, pupils equal reactive to light, pink, clear oropharynx Neck supple, no thyromegaly no jugular venous distention CVS S1-S2 regular rate rhythm without murmur, rub or gallop Chest clear to auscultation Abdomen soft nondistended , No tenderness, no organomegaly no bruit bowel sounds present Extremities mild edema no cyanosis or clubbing Neuro awake, alert oriented x3 no gross deficit - Vital Signs Vital signs: Vital Signs - 12hr 01/09/17 01/09/17 01/09/17 00:29 08:29 09:23 Temperature 99.0 F 98.9 F Pulse Rate Pulse Rate [ 100 H 106 H Right Brachial] Respiratory 20 20 Rate Blood Pressure Blood Pressure 145/77 143/69 [Left Arm] O2 Sat by Pulse 97 97 96 Oximetry 01/09/17 10:08 Temperature Pulse Rate 106 H Pulse Rate [ Right Brachial] Respiratory Rate Blood Pressure 143/69 Blood Pressure [Left Arm] O2 Sat by Pulse Oximetry - Lab 01/08/17 05:41 01/08/17 05:41 Most recent lab results Calcium 7.2 mg/dL (8.4-10.2) L 01/08/17 05:41
[2017-01-09 11:40] LABS: Eosinophils Body Fluid 14 %; Lymphocytes BF 23 %
[2017-01-09 11:41] LABS: Monocytes Body Fluid 44 %
[2017-01-09 11:45] LABS: Basophils Body Fluid 0 %; Reactive Lymph Body Fluid 0 %
--- NOTE | 2017-01-09 12:36 | Progress Note ---
Assessment and Plan Current antibiotics: Vancomycin pulse dosed 12/31 --> Zosyn 2.25 g IV q8h 12/31 --> ASSESSMENT: Candido Fuller is a 46 y/o male with ESRD on CAPD, hypertension and type 2 DM who was admitted to [facility] on 12/31/16 with abdominal pain, chills and increasing global weakness and 1-2 days of cloudy PD fluid. He was found to have a leukocytosis and an elevate PD fluid WBC. Problem list: 1. Peritoneal dialysis associated peritonitis -Abdominal pain and chills and leukocytosis -PD fluid on admission with 4300 WBC, 72% PMNs -No culture or Gram stain done initially -Improved on broad-spectrum therapy -01/06 PD fluid: 878 WBC 2. End-stage renal failure -Chronic peritoneal dialysis X ~ 4 months -Previous hemodialysis which had to be transitioned to PD because of lack of AV access 3. Status post DDKT 1998 -Functional 17 years before becoming nonfunctional 4. Type 2 diabetes mellitus 5. Hypertension 6. Leukocytosis -Secondary to #1 -Resolved 7. Anemia PLAN: 1. Continue current therapy for now 2. Await PD fluid cultures but may be sterile since patient has been on antibiotics 3. Will discuss with nephrology about a possible empiric regimen of intraperitoneal antibiotics on discharge. 4. Glycemic control 5. Continued observation Olu Christina MD [facility] Office: [phone] Subjective Date of service: 01/09/17 Principal diagnosis: Peritonitis; Sepsis Interval history: Pain has essentially resolved. Appetite somewhat improved but still poor. No new complaints. ROS: No subjective fever or chills. No diarrhea. No shortness of breath, cough or pleuritic chest pain Objective - Exam Narrative Exam: GENERAL: Well-developed, well-nourished appearing who is alert and in no acute distress. HEAD: Normocephalic. No lesions seen. EYES: Pupils are equal reactive to light and accommodation. There is no scleral icterus. Optic fundi are not examined. EARS: Tympanic membranes are normal. THROAT: Oropharynx is normal with no evidence of oral candidiasis or pharyngitis. NECK: Supple. No enlargement of the thyroid gland. No significant cervical lymphadenopathy. No jugular venous distention at 30. LUNGS: Clear with no adventitious sounds. HEART: Regular rate. S1 and S2 are normal. There are no clicks or rubs heard. No S3; + S4; II/ DODIE heard best over the left upper sternal border. ABDOMEN: Soft, somewhat distended with dialysate dwelling with minimal tenderness at present. Liver and spleen are not palpably enlarged or tender. No palpable masses. Bowel sounds are normoactive. PD catheter shows no evidence of infection at the insertion site. Well-healed surgical scar from previous transplant. EXTREMITIES: No rash, peripheral lymphadenopathy, clubbing or edema. Multiple scars from previous AV accesses with no signs of infection. : Not examined today. NEUROLOGIC: No focal findings. - Constitutional Vitals: Vital Signs Temp Pulse Resp BP Pulse Ox 98.9 F 106 H 20 143/69 96 01/09/17 08:29 01/09/17 10:08 01/09/17 08:29 01/09/17 10:08 01/09/17 09:23 Temperature -Last 24 Hours Temperature 98.9 F Temperature 99.0 F Temperature 98.7 F - Labs CBC & Chem 7: 01/08/17 05:41 01/08/17 05:41 Labs: Microbiology 01/06/17 06:00 Peritioneal Dialysate Peritoneal Dialysate Culture - NGTD. Gram stain with many PMNs, NOS 12/30/16 20:36 Peripheral/Venous Blood Culture - Final NO GROWTH AFTER 5 DAYS 12/30/16 20:51 Peripheral/Venous Blood Culture - Final NO GROWTH AFTER 5 DAYS 12/30/16 21:24 Abdomen Wound Culture - Final Laboratory Tests 12/31/16 01/06/17 02:30 Unknown Fluid WBC 4300 878 Fluid RBC 0 7 Fluid Seg Neutrophils 72.0 83.0 Fluid Lymphocytes 1.0 4.0 Fluid Monocytes 15.0 9.0 Fluid Eosinophils 12.0 4.0
--- NOTE | 2017-01-09 12:56 | Progress Note ---
Assessment and Plan Assessment and plan: 1. Peritonitis with resolved sepsis in a pt on PD for ESRD-wbc normal and afebrile; f/u ID and renal regarding discharge planning and recommendations regarding d/c with intraperiteoneal antibiotics; culture NGTD after 72 hrs; cell count sent; cotn current antibiotics for now and f/u ID 2. End-stage renal disease on PD with peritionitis. Continue CAPD per nephrology. Continue to monitor I/O was, electrolytes and renal parameters. 3. Acute on chronic anemia- H/H stable 4. Benign HTN- continue antihypertensive medications. 5. Type 2 diabetes mellitus. Continue Accu-Cheks and sliding scale insulin. 6. Partial small bowel obstruction- Resolved. 7. DVT prophylaxis. SCDs. No heparin History Interval history: f/u sepsis; peritonitis Patient seen at the bedside; no abdominal pain Hospitalist Physical - Constitutional Vitals: Temp Pulse Resp BP Pulse Ox 98.9 F 106 H 20 143/69 96 01/09/17 08:29 01/09/17 10:08 01/09/17 08:29 01/09/17 10:08 01/09/17 09:23 General appearance: Present: no acute distress, well-nourished - EENT Eyes: Present: PERRL, EOM intact. Absent: scleral icterus, conjunctival injection ENT: hearing intact, clear oral mucosa, no oropharyngeal erythema, no poor dentition - Neck Neck: Present: supple, normal ROM. Absent: enlarged thyroid, masses or JVD - Respiratory Respiratory effort: normal Respiratory: negative: diminished, rales, rhonchi, wheezing - Cardiovascular Rhythm: regular Heart Sounds: Present: S1 & S2. Absent: gallop - Extremities Extremities: no ischemia, pulses intact, pulses symmetrical, No edema - Abdominal General gastrointestinal: soft, non-tender, non-distended - Integumentary Integumentary: Present: clear - Psychiatric Psychiatric: appropriate mood/affect, intact judgment & insight, cooperative Results - Labs CBC & Chem 7: 01/08/17 05:41 01/08/17 05:41 Labs: Laboratory Last Values WBC 5.7 K/mm3 (4.5-11.0) 01/08/17 05:41 RBC 2.43 M/mm3 (3.65-5.03) L 01/08/17 05:41 Hgb 7.5 gm/dl (11.8-15.2) L 01/08/17 05:41 Hct 21.9 % (35.5-45.6) L 01/08/17 05:41 MCV 92 fl (84-94) 01/08/17 05:41 MCH 31 pg (28-32) 01/08/17 05:41 MCHC 34 % (32-34) 01/08/17 05:41 RDW 16.6 % (13.2-15.2) H 01/08/17 05:41 Plt Count 176 K/mm3 (140-440) 01/08/17 05:41 Lymph % (Auto) 21.3 % (13.4-35.0) 01/08/17 05:41 Young % (Auto) 11.2 % (0.0-7.3) H 01/08/17 05:41 Eos % (Auto) 4.8 % (0.0-4.3) H 01/08/17 05:41 Baso % (Auto) 0.6 % (0.0-1.8) 01/08/17 05:41 Lymph # 1.2 K/mm3 (1.2-5.4) 01/08/17 05:41 Young # 0.6 K/mm3 (0.0-0.8) 01/08/17 05:41 Eos # 0.3 K/mm3 (0.0-0.4) 01/08/17 05:41 Baso # 0.0 K/mm3 (0.0-0.1) 01/08/17 05:41 Add Manual Diff Complete 01/06/17 08:37 Total Counted 100 01/06/17 08:37 Seg Neutrophils % 62.1 % (40.0-70.0) 01/08/17 05:41 Seg Neuts % (Manual) 77.0 % (40.0-70.0) H 01/06/17 08:37 Band Neutrophils % 0 % 01/06/17 08:37 Lymphocytes % (Manual) 14.0 % (13.4-35.0) 01/06/17 08:37 Reactive Lymphs % (Man) 0 % 01/06/17 08:37 Monocytes % (Manual) 7.0 % (0.0-7.3) 01/06/17 08:37 Eosinophils % (Manual) 2.0 % (0.0-4.3) 01/06/17 08:37 Basophils % (Manual) 0 % (0.0-1.8) 01/06/17 08:37 Metamyelocytes % 0 % 01/06/17 08:37 Myelocytes % 0 % 01/06/17 08:37 Promyelocytes % 0 % 01/06/17 08:37 Blast Cells % 0 % 01/06/17 08:37 Nucleated RBC % Not Reportable 01/06/17 08:37 Seg Neutrophils # 3.5 K/mm3 (1.8-7.7) 01/08/17 05:41 Seg Neutrophils # Man 4.9 K/mm3 (1.8-7.7) 01/06/17 08:37 Band Neutrophils # 0.0 K/mm3 01/06/17 08:37 Lymphocytes # (Manual) 0.9 K/mm3 (1.2-5.4) L 01/06/17 08:37 Abs React Lymphs (Man) 0.0 K/mm3 01/06/17 08:37 Monocytes # (Manual) 0.4 K/mm3 (0.0-0.8) 01/06/17 08:37 Eosinophils # (Manual) 0.1 K/mm3 (0.0-0.4) 01/06/17 08:37 Basophils # (Manual) 0.0 K/mm3 (0.0-0.1) 01/06/17 08:37 Metamyelocytes # 0.0 K/mm3 01/06/17 08:37 Myelocytes # 0.0 K/mm3 01/06/17 08:37 Promyelocytes # 0.0 K/mm3 01/06/17 08:37 Blast Cells # 0.0 K/mm3 01/06/17 08:37 WBC Morphology Not Reportable 01/06/17 08:37 Hypersegmented Neuts Not Reportable 01/06/17 08:37 Hyposegmented Neuts Not Reportable 01/06/17 08:37 Hypogranular Neuts Not Reportable 01/06/17 08:37 Smudge Cells Not Reportable 01/06/17 08:37 Toxic Granulation Not Reportable 01/06/17 08:37 Toxic Vacuolation Not Reportable 01/06/17 08:37 Dohle Bodies Not Reportable 01/06/17 08:37 Pelger-Huet Anomaly Not Reportable 01/06/17 08:37 Marciano Rods Not Reportable 01/06/17 08:37 Platelet Estimate Consistent w auto 01/06/17 08:37 Clumped Platelets Not Reportable 01/06/17 08:37 Plt Clumps, EDTA Not Reportable 01/06/17 08:37 Large Platelets Not Reportable 01/06/17 08:37 Giant Platelets Not Reportable 01/06/17 08:37 Platelet Satelliting Not Reportable 01/06/17 08:37 Plt Morphology Comment Not Reportable 01/06/17 08:37 RBC Morphology Not Reportable 01/06/17 08:37 Dimorphic RBCs Not Reportable 01/06/17 08:37 Polychromasia Not Reportable 01/06/17 08:37 Hypochromasia Not Reportable 01/06/17 08:37 Poikilocytosis Not Reportable 01/06/17 08:37 Anisocytosis 1+ 01/06/17 08:37 Microcytosis Not Reportable 01/06/17 08:37 Macrocytosis Not Reportable 01/06/17 08:37 Spherocytes Not Reportable 01/06/17 08:37 Pappenheimer Bodies Not Reportable 01/06/17 08:37 Sickle Cells Not Reportable 01/06/17 08:37 Target Cells Not Reportable 01/06/17 08:37 Tear Drop Cells Not Reportable 01/06/17 08:37 Ovalocytes Not Reportable 01/06/17 08:37 Helmet Cells Not Reportable 01/06/17 08:37 Bailey-Letts Bodies Not Reportable 01/06/17 08:37 Stanley Rings Not Reportable 01/06/17 08:37 [place] Cells Not Reportable 01/06/17 08:37 Bite Cells Not Reportable 01/06/17 08:37 Crenated Cell Not Reportable 01/06/17 08:37 Elliptocytes Not Reportable 01/06/17 08:37 Acanthocytes (Spur) Not Reportable 01/06/17 08:37 Rouleaux Not Reportable 01/06/17 08:37 Hemoglobin C Crystals Not Reportable 01/06/17 08:37 Schistocytes Not Reportable 01/06/17 08:37 Malaria parasites Not Reportable 01/06/17 08:37 Ulices Bodies Not Reportable 01/06/17 08:37 Hem Pathologist Commnt No 01/06/17 08:37 POC ABG pH 7.382 (7.35-7.45) 12/31/16 08:57 POC ABG pCO2 38.2 (35-45) 12/31/16 08:57 POC ABG pO2 78 (80-105) L 12/31/16 08:57 POC ABG HCO3 22.7 12/31/16 08:57 POC ABG Total CO2 24 12/31/16 08:57 POC ABG O2 Sat 95 12/31/16 08:57 POC ABG Base Excess -2 12/31/16 08:57 FiO2 32 % 12/31/16 08:57 Sodium 135 mmol/L (137-145) L 01/08/17 05:41 Potassium 3.8 mmol/L (3.6-5.0) 01/08/17 05:41 Chloride 91.3 mmol/L (98-107) L 01/08/17 05:41 Carbon Dioxide 24 mmol/L (22-30) 01/08/17 05:41 Anion Gap 24 mmol/L 01/08/17 05:41 BUN 57 mg/dL (9-20) H 01/08/17 05:41 Creatinine 18.8 mg/dL (0.8-1.5) H 01/08/17 05:41 Estimated GFR 3 ml/min 01/08/17 05:41 BUN/Creatinine Ratio 3.03 % 01/08/17 05:41 Glucose 72 mg/dL (75-100) L 01/08/17 05:41 Lactic Acid 0.9 mmol/L (0.7-2.0) 01/01/17 05:40 Calcium 7.2 mg/dL (8.4-10.2) L 01/08/17 05:41 Iron 25 ug/dL (49-181) L 01/08/17 05:41 Ferritin 1752.0 ng/mL (13.0-400.0) H 01/08/17 05:41 Total Bilirubin 0.4 mg/dL (0.1-1.2) 12/31/16 02:39 AST 14 units/L (5-40) 12/31/16 02:39 ALT 11 units/L (7-56) 12/31/16 02:39 Alkaline Phosphatase 106 units/L (35-129) 12/31/16 02:39 Total Creatine Kinase 59 units/L (55-170) 01/06/17 08:37 CK-MB (CK-2) < 1.0 ng/mL (0.0-4.0) 01/06/17 08:37 CK-MB (CK-2) Rel Index 1.6 (0-4) 01/06/17 08:37 Troponin T 0.036 ng/mL (0.00-0.029) H 01/06/17 08:37 Total Protein 7.0 g/dL (6.3-8.2) 12/31/16 02:39 Albumin 3.4 g/dL (3.9-5) L 12/31/16 02:39 Albumin/Globulin Ratio 0.9 % 12/31/16 02:39 Triglycerides 148 mg/dL (2-149) 01/06/17 08:37 Cholesterol 170 mg/dL (50-199) 01/06/17 08:37 LDL Cholesterol Direct 97 mg/dL (50-130) 01/06/17 08:37 HDL Cholesterol 44 mg/dL (40-59) 01/06/17 08:37 Cholesterol/HDL Ratio 3.86 % 01/06/17 08:37 Lipase 42 units/L (13-60) 12/30/16 20:36 Vitamin B12 498.9 pg/mL (211-911) 12/31/16 21:00 Folate 5.71 ng/mL (7.3-26.0) L 12/31/16 21:00 Fluid Type Peritoneal 01/09/17 10:20 Fluid Color Straw 01/09/17 10:20 Fluid Appearance Hazy 01/09/17 10:20 Fluid WBC 67 /mm3 01/09/17 10:20 Fluid RBC 20 /mm3 01/09/17 10:20 Fluid Diff Comment 01/06/17 Unknown Fluid Seg Neutrophils 19.0 % 01/09/17 10:20 Fluid Lymphocytes 23 % 01/09/17 10:20 Fluid Reactive Lymphs 0 % 01/09/17 10:20 Fluid Monocytes 44 % 01/09/17 10:20 Fluid Eosinophils 14 % 01/09/17 10:20 Fluid Basophils 0 % 01/09/17 10:20 Fluid Comment Diff perfo 01/09/17 10:20 Random Vancomycin 18.1 ug/mL (0-40.0) 01/08/17 05:41 Blood Type A POSITIVE 12/31/16 13:54 Antibody Screen Positive 12/31/16 13:54 Antibody Identification Anti-M 12/31/16 13:54 Crossmatch See Detail 12/31/16 13:54 Microbiology 01/06/17 06:00 Peritioneal Dialysate Peritoneal Dialysate Culture - Preliminary 12/30/16 20:36 Peripheral/Venous Blood Culture - Final NO GROWTH AFTER 5 DAYS 12/30/16 20:51 Peripheral/Venous Blood Culture - Final NO GROWTH AFTER 5 DAYS 12/30/16 21:24 Abdomen Wound Culture - Final
--- NOTE | 2017-01-09 13:29 | Discharge Summary ---
Providers - Providers Date of Admission: 12/31/16 04:40 Date of discharge: 01/09/17 Attending physician: KANDI LEW 01/04/17 08:50 Physical Therapy Evaluation and Treat [CONS] Routine Comment: Reason For Exam: deconditioning 01/04/17 10:52 Consult to Physician [CONS] Routine Consulting Provider: JORGE BOLTON Reason For Exam: peritonitis Place consult to:: DR. DESIR Notified:: DR. DESIR Phone number called:: [phone] Was contact made?: Yes If yes, spoke with:: DR. DESIR Time called:: 11:20 Primary care physician: DEB MORA Hospitalization Reason for admission: septic shock; peritonitis Condition: Stable Pertinent studies: Microbiology 01/06/17 06:00 Peritioneal Dialysate Peritoneal Dialysate Culture - Preliminary 12/30/16 20:36 Peripheral/Venous Blood Culture - Final NO GROWTH AFTER 5 DAYS 12/30/16 20:51 Peripheral/Venous Blood Culture - Final NO GROWTH AFTER 5 DAYS 12/30/16 21:24 Abdomen Wound Culture - Final Hospital course: Mr Fuller is a 46 yo M who presented to the ER with very abdominal pain and cloudy fluid from his peritoneal dialysate. He was also noted to be in septic shock. He was started on IV fluids and IV antibiotics. He was admitted to the ICU. He was also started on vasopressor support. He was seen by the medical director/head team physician as well as by the infectious disease physician. Also had partial small bowel obstruction which resolved prior to discharge. This was thought to be due to ileus. His hypotension resolved and he was subsequently weaned off vasopressor support. He was subsequently transferred to the medical floor where he continued to have IV antibiotics. His cultures from his peritoneal fluid was no growth. His sepsis resolved. Arrangements were made for him to continued to get empiric oral intra-prior toenail antibiotics as an outpatient the medical director/head team physician. condition at discharge-stable 31 minutes spent on discharge Disposition: DISCHARGED TO HOME OR SELFCARE - Discharge Diagnoses (1) End stage renal disease Status: Acute (2) Peritonitis associated with peritoneal dialysis Status: Acute Qualifiers: Encounter type: E (3) Type 2 diabetes mellitus with diabetic chronic kidney disease Status: Acute Qualifiers: Diabetes mellitus residential insulin use: D Chronic kidney disease stage: C (4) History of renal transplant Status: Chronic (5) Hypertension Status: Chronic Qualifiers: Hypertension type: renovascular hypertension Qualified Code(s): I15.0 - Renovascular hypertension (6) Kidney transplant failure Status: Chronic Core Measure Documentation - Palliative Care Palliative Care/ Comfort Measures: Not Applicable - Core Measures Any of the following diagnoses?: none Exam - Constitutional Vitals: Temp Pulse Resp BP Pulse Ox 98.9 F 106 H 20 143/69 96 01/09/17 08:29 01/09/17 10:08 01/09/17 08:29 01/09/17 10:08 01/09/17 09:23 see examination dictated in progress note for 01/09/2017 Plan Activity: no restrictions Diet: renal Additional Instructions: call PD nurse in the morning to arrange to get antibiotics; f/u medical director/head team physician Follow up with: DEB MORA MD [Primary Care Provider] - 3-5 Days Prescriptions: Metoprolol [Lopressor TAB] 12.5 mg PO BID #60 tablet
[2017-01-09] MEDS ORDERED: VANCOMYCIN VIAL 1,500 MG in NACL 0.9% 500 ML 500 ML IV ONE (14:00)
[2017-01-09 17:30] VITALS: BP 135/76
== END 2017-01-09 17:00 | disposition home or self-care (01) | DRG 314 ==
LOC: ED 19:24 → CC1 12-31 04:40 → 3A 01-02 09:36
PROVIDERS: ADMIT Internal Medicine; ATTEND Hospitalist
PROC: 5A2204Z Restoration of Cardiac Rhythm, Single (ICD-10-PCS; 2016-12-30)
PROC: B548ZZA Ultrasonography of Superior Vena Cava, Guidance (ICD-10-PCS; 2016-12-30)
PROC: 30233N1 Transfusion of Nonautologous Red Blood Cells into Peripheral Vein, Percutaneous Approach (ICD-10-PCS; principal; 2016-12-31)
PROC: 4A033R1 Measurement of Arterial Saturation, Peripheral, Percutaneous Approach (ICD-10-PCS; 2016-12-31)
PROC: 05HN33Z Insertion of Infusion Device into Left Internal Jugular Vein, Percutaneous Approach (ICD-10-PCS; 2016-12-31)
DX: T82.7XXA Infection and inflammatory reaction due to other cardiac and vascular devices, implants and grafts, initial encounter (principal); A41.9 Sepsis, unspecified organism; R65.21 Severe sepsis with septic shock; N18.6 End stage renal disease; K65.9 Peritonitis, unspecified; I12.0 Hypertensive chronic kidney disease with stage 5 chronic kidney disease or end stage renal disease; K56.7 Ileus, unspecified; D62 Acute posthemorrhagic anemia; E87.2 Acidosis; Z94.0 Kidney transplant status; M19.90 Unspecified osteoarthritis, unspecified site; E66.01 Morbid (severe) obesity due to excess calories; K59.00 Constipation, unspecified; E11.22 Type 2 diabetes mellitus with diabetic chronic kidney disease; D63.1 Anemia in chronic kidney disease; Z79.899 Other long term (current) drug therapy; Z99.2 Dependence on renal dialysis; Z87.440 Personal history of urinary (tract) infections; Z68.38 Body mass index [BMI] 38.0-38.9, adult; Z82.49 Family history of ischemic heart disease and other diseases of the circulatory system; Y84.6 Urinary catheterization as the cause of abnormal reaction of the patient, or of later complication, without mention of misadventure at the time of the procedure; Y92.89 Other specified places as the place of occurrence of the external cause
CPT/HCPCS: 36415; 36600; 71010; 74022; 74177; 80048; 80053; 80061; 80202; 82140; 82550; 82553; 82607; 82728; 82747; 82803; 83540; 83690; 84484; 85007; 85025; 85027; 86850; 86870; 86900; 86901; 86922; 87040; 87116; 89051; 93005; 93010; 94760; 96361; 96365; 96367; 96375; 96376; J0153; J0885; J1170; J1644; J2060; J2270; J2405; J2543; J3010; J3370; J7030; J7040; J7050; P9016; Q0162; Q9967

== ENCOUNTER 2018-02-26 21:30 | Emergency (ER) | payer MEDICARE, SELFPAY | END 2018-02-26 23:45 | disposition left against medical advice (07) | LOC: ED 21:30 | DX: M79.606 Pain in leg, unspecified (principal); N18.6 End stage renal disease; Z99.2 Dependence on renal dialysis; Z53.21 Procedure and treatment not carried out due to patient leaving prior to being seen by health care provider ==

== ENCOUNTER 2018-06-09 08:30 | Day surgery (SDC) | payer MEDICARE ==
[~2018-06-09 08:30] MED LIST: ANCEF/STERILE WATER 2 GM/20 ML 2 GM/20 ML SYRINGE IV NR; NACL 0.9% 1000 ML 1,000 ML IV SCH
[2018-06-09] MEDS ORDERED: NACL BACTERIOSTATIC INFILTRATI ONE (09:46)
[2018-06-09 10:18] LABS: Basophils % (Auto) 0.2 % (0.0-1.8); Eosinophils # (Auto) 0.3 K/mm3 (0.0-0.4); Eosinophils % (Auto) 5.6 % (0.0-4.3); Hematocrit 41.8 % (35.5-45.6); Hemoglobin 13.4 gm/dl (11.8-15.2); Lymphocytes # (Auto) 2.7 K/mm3 (1.2-5.4); Lymphocytes % (Auto) 48.7 % (13.4-35.0); Mean Corpuscular HGB Conc 32 % (32-34); Mean Corpuscular Hemoglobin 30 pg (28-32); Mean Corpuscular Volume 92 fl (84-94); Monocytes # (Auto) 0.5 K/mm3 (0.0-0.8); Monocytes % (Auto) 9.1 % (0.0-7.3); Platelet Count 211 K/mm3 (140-440); Red Blood Count 4.52 M/mm3 (3.65-5.03); Red Cell Distribution Width 16.9 % (13.2-15.2)
[2018-06-09 10:32] LABS: Calcium 8.5 mg/dL (8.4-10.2)
[2018-06-09] MEDS ORDERED: VERSED IV NR (11:00)
[2018-06-09] MEDS ORDERED: DIPRIVAN 10 MG/ML IV ONE (14:36)
[2018-06-09] MEDS ORDERED: XYLOCAINE MPF 2% ONE (14:38)
[2018-06-09] MEDS ORDERED: VERSED IV ONE (15:19)
[2018-06-09] MEDS ORDERED: DILAUDID ONE ×2 (15:36→16:14)
[2018-06-09] MEDS ORDERED: MARCAINE 0.5% 30 ML INFILTRATI ONE ×2 (15:47→16:22)
[2018-06-09] MEDS ORDERED: HEPARIN 10,000 UNITS/10 ML ONE (15:47)
[2018-06-09] MEDS ORDERED: NACL 0.9% 500 ML 500 ML ONE ×2 (15:48→16:22)
[2018-06-09] MEDS ORDERED: ePHEDrine 50 MG/5 ML-0.9% NACL IV ONE (15:50)
[2018-06-09] MEDS ORDERED: RIFADIN ONE ×2 (15:58→16:38)
[2018-06-09] MEDS ORDERED: NACL P/F VIAL (10 ML) 10 ML ONE (15:58)
[2018-06-09] MEDS ORDERED: NEO SYNEPHRINE/NS Syringe(OR USE) IV ONE (16:12)
[2018-06-09] MEDS ORDERED: HEPARIN 10,000 UNITS/10 ML 2,000 UNIT in NACL 0.9% 500 ML 500 ML IR ONE (16:30)
[2018-06-09] MEDS ORDERED: RIFADIN 600 MG in NACL 0.9% 50 ML IR ONE (16:30)
[2018-06-09] MEDS ORDERED: NACL 0.9% 1000 ML 1,000 ML ONE (16:34)
[2018-06-09] MEDS ORDERED: DECADRON ONE (17:30)
[2018-06-09] MEDS ORDERED: NEO SYNEPHRINE ONE (17:34)
[2018-06-09] MEDS ORDERED: NACL 0.9% 100 ML ONE (17:35)
[2018-06-09] MEDS ORDERED: ZOFRAN ONE (17:45)
[2018-06-09] MEDS ORDERED: MARCAINE 0.5% INFILTRATI ONE (17:59)
[2018-06-09] MEDS ORDERED: NACL 0.9% IR ONE (17:59)
--- NOTE | 2018-06-09 18:10 | Short Stay Summary ---
Short Stay Documentation Date of service: 06/09/18 Narrative H&P: See H&P - History H&P: obtained from office - Allergies and Medications Current Medications: Allergies No Known Allergies Allergy (Verified 09/09/15 13:26) Home Medications Medication Instructions Recorded Confirmed Last Taken Type Cinacalcet [Sensipar] 60 mg PO QDAY 12/30/16 06/09/18 06/08/18 History Sevelamer Carbonate [Renvela] 800 mg PO TIDWM 12/30/16 06/09/18 06/08/18 History Midodrine [Proamatine] 10 mg PO Q8HR tablet 04/01/18 06/09/18 06/09/18 07:30 Rx Calcitriol [Rocaltrol] 0.5 mcg PO 3XW 06/09/18 06/09/18 06/07/18 History Metoprolol Xl [Metoprolol 50 mg PO 4XW 06/09/18 06/09/18 06/09/18 07:30 History SUCCINATE ER TAB] Active Medications Cefazolin Sodium (Ancef/Sterile Water 2 Gm/20 Ml) 2 gm in 20 mls @ 80 mls/hr IV PREOP NR; Protocol Stop: 06/09/18 23:59 Sodium Chloride (Nacl 0.9% 1000 Ml) 1,000 mls @ 42 mls/hr IV DIRECT SORIN Last Admin: 06/09/18 09:55 Dose: 42 mls/hr Midazolam HCl (Versed) 2 mg IV PREOP NR Stop: 06/09/18 23:59 - Brief post op/procedure progress note Date of procedure: 06/09/18 Pre-op diagnosis: Complications of Dialysis Access Post-op diagnosis: same Procedure: Creation of Right Brachial Artery to Left Axillary Vein AV Graft with 7 Mm Bovine Graft Anesthesia: GETA Surgeon: JUSTINE MONTGOMERY Estimated blood loss: minimal Pathology: none Condition: stable - Disposition Condition at discharge: Good Disposition: DC-01 TO HOME OR SELFCARE Short Stay Discharge Plan Activity: other (no heavy lifting with right arm) Wound: open to air, keep clean and dry, other (okay to wash the wound with soap and water but do not soak in water) Follow up with: JUSTINE MONTGOMERY MD [Staff Physician] - 14 Days Prescriptions: HYDROcodone/APAP 7.5-325 [[place] 7.5/325] 1 each PO Q6HR PRN #24 tablet PRN Reason: Pain
--- NOTE | 2018-06-09 18:12 | Operative Report ---
Operative Report Operative Report: Date of procedure: 06/09/2018 Pre-operative diagnosis: Complications of Dialysis Access Post-operative diagnosis: Same Procedure(s): 1. Creation of Right Brachial Artery to Axillary Vein AV Graft with 7 mm Bovine Graft Surgeon: Jero Looney MD Technical Services Analyst: None Anesthesia: General Endotracheal Anesthesia EBL: Minimal Counts: Correct Complications: None Condition: Stable Findings: Successful Creation of Left Arm AV Graft Specimen: None Indication: The patient is a 47-year-old male with history of end-stage renal disease who is have multiple AV accesses that have failed. He is currently on hemodialysis through a right internal jugular permacath. He is in need of long-term access and requires creation of a right arm AV graft. He was given the risks, benefits , and alternative procedures and consented to the procedure. Description of Procedure: The patient was brought to the operating room and laid in supine position after general endotracheal anesthesia was achieved the right arm was prepped and draped in normal sterile fashion. A longitudinal incision was made on the medial aspect of the arm just proximal to the antecubital crease and carried down to the brachial artery using sharp dissection. The brachial artery was dissected out circumferentially both proximally and distally and controlled with vessel loops. A second incision was created in longitudinal fashion on the medial aspect of the arm just distal to the axillary crease and carried down to the axillary vein using sharp dissection. Axillary vein was dissected out circumferentially and controlled with a vessel loop. I then used a Edwige- Wick tunneler to tunnel from the brachial artery incision to the axillary vein incision and then put an 7 mm bovine through the tunnel. I infused with heparinized saline to ensure that it was not twisted or kinked. I put the brachial artery vessel loops on tension controlling the flow and then created an arteriotomy using an 11 blade and Austin scissors. I beveled the graft and created an end-to-side anastomosis using 6-0 Prolene running fashion. I clamped the graft just proximal to the anastomosis and then released the vessel loops restoring flow in the brachial artery. I placed quick clot in incision to achieve hemostasis. I cut the proximal end of the graft to the appropriate length and beveled the graft in preparation for a venous anastomosis. I controlled the axillary vein a Satinsky clamp and created a venotomy using an 11 blade and Austin scissors. I created an end to side anastomosis using a 6-0 Prolene in running fashion. Prior to completing the anastomosis I flushed the graft to ensure there was no thrombus and then completed the anastamosis. I released all clamps allowing flow into the AV graft which had an excellent thrill. I packed the wound with quick clot to achieve hemostasis. I anesthetized both wounds with Marcaine and then closed both wounds in 2 layers using 3-0 Vicryl in running fashion in the deep dermal layer and 4-0 Monocryl in running fashion the subcuticular layer. I dressed both wounds with Surgicel. The patient tolerated the procedure well all sponge needle and instrument counts were correct the patient was taken to recovery in stable condition.
[2018-06-09 19:47] VITALS: BP 105/61
== END 2018-06-09 20:15 | disposition home or self-care (01) ==
LOC: OR 08:30
PROVIDERS: ATTEND Surgery Vascular Surgery
DX: I12.0 Hypertensive chronic kidney disease with stage 5 chronic kidney disease or end stage renal disease (principal); N18.6 End stage renal disease; Z86.73 Personal history of transient ischemic attack (TIA), and cerebral infarction without residual deficits
CPT/HCPCS: 36415; 36830; 80048; 85025; C1768; J0690; J1100; J1170; J1644; J2250; J2370; J2405; J2704; J3490; J7030; J7040

== ENCOUNTER 2019-05-16 08:02 | Inpatient (IN) | payer MEDICARE ==
[2019-05-16 10:40] LABS: Basophils # (Auto) 0.1 K/mm3 (0.0-0.1); Basophils % (Auto) 0.9 % (0.0-1.8); Eosinophils # (Auto) 0.3 K/mm3 (0.0-0.4); Eosinophils % (Auto) 4.2 % (0.0-4.3); Hemoglobin 11.7 gm/dl (11.8-15.2); Lymphocytes # (Auto) 2.2 K/mm3 (1.2-5.4); Lymphocytes % (Auto) 31.9 % (13.4-35.0); Mean Corpuscular HGB Conc 33 % (32-34); Mean Corpuscular Volume 98 fl (84-94); Monocytes # (Auto) 0.5 K/mm3 (0.0-0.8); Platelet Count 195 K/mm3 (140-440); Red Blood Count 3.59 M/mm3 (3.65-5.03); Red Cell Distribution Width 15.9 % (13.2-15.2)
[2019-05-16 10:56] LABS: INR 1.14 (0.87-1.13)
--- NOTE | 2019-05-16 11:29 | Emergency Department Report ---
ED General Adult HPI - General Chief complaint: Medical Clearance Stated complaint: DIALYSIS/CLODED GRAPH Time Seen by Provider: 05/16/19 11:19 Source: patient Mode of arrival: Ambulatory Limitations: No Limitations - History of Present Illness Initial comments: 48-year-old male with a past medical history of arthritis, CHF, diabetes, hypertension, and end-stage renal disease on dialysis Saturday, , and Saturday since the hospital complains of clogged fistula to right arm. Last dialysis was Saturday 4 days ago. Patient did not receive dialysis because his access was clogged. Yesterday i.e. Saturday he was declotted by a vascular surgeon associated with [facility] vascular group. Patient states that he was unable to palpate a thrill by yesterday evening. He came to the hospital today instead of going to dialysis because he knew that his access was clotted. Patient does not have any physical complaints and denies shortness of breath. He currently is followed by [facility] vascular group and Dr. Veras licensed direct entry midwife. In the past he was seen by Dr. Jauregui and Dr Jero Looney. - Related Data Home Medications Medication Instructions Recorded Confirmed Last Taken Cinacalcet [Sensipar] 60 mg PO QDAY 12/30/16 06/09/18 06/08/18 Sevelamer Carbonate [Renvela] 800 mg PO TIDWM 12/30/16 06/09/18 06/08/18 Calcitriol [Rocaltrol] 0.5 mcg PO 3XW 06/09/18 06/09/18 06/07/18 Metoprolol Xl [Metoprolol 50 mg PO 4XW 06/09/18 06/09/18 06/09/18 07:30 SUCCINATE ER TAB] Previous Rx's Medication Instructions Recorded Last Taken Type Midodrine [Proamatine] 10 mg PO Q8HR tablet 04/01/18 06/09/18 07:30 Rx HYDROcodone/APAP 7.5-325 [[place] 1 each PO Q6HR PRN #24 tablet 06/09/18 Unknown Rx 7.5/325] Allergies Allergy/AdvReac Type Severity Reaction Status Date / Time No Known Allergies Allergy Verified 05/16/19 08:04 ED Review of Systems ROS: Stated complaint: DIALYSIS/CLODED GRAPH Other details as noted in HPI Comment: All other systems reviewed and negative ED Past Medical Hx - Past Medical History Hx Hypertension: Yes (Yes per history, IN THE PAST) Hx Congestive Heart Failure: Yes Hx Diabetes: Yes Hx Liver Disease: No Hx Renal Disease: Yes Hx Arthritis: Yes Hx Seizures: No Hx Asthma: No Hx COPD: No Hx HIV: No Additional medical history: Dialysis patient, has graft in left arm. no dialysis since 1998. frequent UTIs - Surgical History Additional Surgical History: Kidney transplant. graft placement - Social History Smoking Status: Never Smoker Substance Use Type: Prescribed - Medications Home Medications: Home Medications Medication Instructions Recorded Confirmed Last Taken Type Cinacalcet [Sensipar] 60 mg PO QDAY 12/30/16 06/09/18 06/08/18 History Sevelamer Carbonate [Renvela] 800 mg PO TIDWM 12/30/16 06/09/18 06/08/18 History Midodrine [Proamatine] 10 mg PO Q8HR tablet 04/01/18 06/09/18 06/09/18 07:30 Rx Calcitriol [Rocaltrol] 0.5 mcg PO 3XW 06/09/18 06/09/18 06/07/18 History HYDROcodone/APAP 7.5-325 [[place] 1 each PO Q6HR PRN #24 tablet 06/09/18 Unknown Rx 7.5/325] Metoprolol Xl [Metoprolol 50 mg PO 4XW 06/09/18 06/09/18 06/09/18 07:30 History SUCCINATE ER TAB] ED Physical Exam - General Limitations: No Limitations - Other Other exam information: General: No limitations, patient is alert in no acute distress Head exam: Atraumatic, normocephalic Eyes exam: Normal appearance ENT: Moist mucous membrane Neck exam: Normal inspection Respiratory exam: Clear to auscultation bilateral, no wheezes, rales, crackles Cardiovascular: Normal rate and rhythm Abdomen: Soft, nondistended, and nontender, with normal bowel sounds, no rebound, or guarding Extremity: Full range of motion, right upper arm edema with 2 dressing sites. No palpable thrill Back: Normal Inspection, full range of motion, no tenderness Neurologic: Alert, oriented x3, cranial nerves intact, no motor or sensory deficit Psychiatric: normal affect, normal mood Skin: Warm, dry, intact ED Course Vital Signs 05/16/19 08:07 Temperature 97.9 F Pulse Rate 98 H Respiratory 18 Rate Blood Pressure 117/71 O2 Sat by Pulse 97 Oximetry - Consultations Consultation #1: 05/16/19 11:34 Call the on-call doctor for Dr. Jauregui group. Case discussed with Dr. Diaz that pt is not a current kyle pt but has been in the past. He patient may go to content developer/unassigned nephrology since not currently their pt. 05/16/19 11:45 Case discussed with on-call licensed direct entry midwife Dr. Arrieta. Requests consultation with vascular. He will evaluate patient. 05/16/19 11:52 case d/w Dr Fair with vascular, will place access ED Medical Decision Making - Lab Data Result diagrams: 05/16/19 10:18 05/16/19 10:18 Lab Results 05/16/19 05/16/19 05/16/19 Range/Units 10:18 10:18 10:18 WBC 6.8 (4.5-11.0) K/mm3 RBC 3.59 L (3.65-5.03) M/mm3 Hgb 11.7 L (11.8-15.2) gm/dl Hct 35.0 L (35.5-45.6) % MCV 98 H (84-94) fl MCH 33 H (28-32) pg MCHC 33 (32-34) % RDW 15.9 H (13.2-15.2) % Plt Count 195 (140-440) K/mm3 Lymph % (Auto) 31.9 (13.4-35.0) % George % (Auto) 7.0 (0.0-7.3) % Eos % (Auto) 4.2 (0.0-4.3) % Baso % (Auto) 0.9 (0.0-1.8) % Lymph # 2.2 (1.2-5.4) K/mm3 George # 0.5 (0.0-0.8) K/mm3 Eos # 0.3 (0.0-0.4) K/mm3 Baso # 0.1 (0.0-0.1) K/mm3 Seg Neutrophils % 56.0 (40.0-70.0) % Seg Neutrophils # 3.8 (1.8-7.7) K/mm3 PT 14.3 (12.2-14.9) Sec. INR 1.14 H (0.87-1.13) APTT 28.0 (24.2-36.6) Sec. Sodium 136 L (137-145) mmol/L Potassium 6.4 H* (3.6-5.0) mmol/L Chloride 90.5 L (98-107) mmol/L Carbon Dioxide 23 (22-30) mmol/L Anion Gap 29 mmol/L BUN 77 H (9-20) mg/dL Creatinine 15.0 H (0.8-1.5) mg/dL Estimated GFR 4 ml/min BUN/Creatinine Ratio 5 % Glucose 84 (75-100) mg/dL Calcium 9.0 (8.4-10.2) mg/dL - EKG Data -: EKG Interpreted by Ok EKG shows normal: sinus rhythm, axis (qrs 44), QRS complexes (qrsd 82), ST-T waves (no stemi, no peek t waves. lat t wave ing) Rate: normal (66) - Medical Decision Making Patient received meds for hyperkalemia. No peaked T waves on EKG. Case discussed with nephrology and vascular. Patient will be admitted for further treatment. - Differential Diagnosis volume overload, hyperkalemia, loss of vascular access Critical Care Time: No Critical care attestation.: If time is entered above; I have spent that time in minutes in the direct care of this critically ill patient, excluding procedure time. ED Disposition Clinical Impression: Dialysis AV fistula malfunction, Hyperkalemia, ESRD needing dialysis Disposition: -09 OP ADMIT IP TO THIS HOSP Is pt being admited?: Yes Condition: Stable Time of Disposition: 11:53 (Dr Mcrae/hosp)
[2019-05-16] MEDS ORDERED: PROVENTIL IH ONE (11:31)
[2019-05-16] MEDS ORDERED: D50W (25GM) Vial IV ONE (11:31)
[2019-05-16] MEDS ORDERED: CALCIUM GLUCONATE 1,000 MG in NACL 0.9% 100 ML IV ONE (11:31)
[2019-05-16] MEDS ORDERED: HumuLIN R IV ONE (11:31)
[2019-05-16] MEDS ORDERED: KIONEX PO ONE ×2 (11:36→11:44)
[2019-05-16] MEDS ORDERED: NACL 0.9% 100 ML IV PRN ×2 (12:33→13:23)
[2019-05-16] MEDS ORDERED: SUBLIMAZE ONE (12:45)
[2019-05-16] MEDS ORDERED: VERSED ONE (12:45)
[2019-05-16] MEDS ORDERED: XYLOCAINE 1%/ EPI 1:100,000 INFILTRATI ONE (12:47)
[2019-05-16] MEDS ORDERED: NACL 0.9% 250ML 250 ML ONE (12:47)
[2019-05-16] MEDS ORDERED: HEPARIN/NS 5000 UNIT/500ML(CATH LAB) 500 ML IR ONE (12:47)
[2019-05-16] MEDS ORDERED: PROAMATINE PO PRN (13:23)
--- NOTE | 2019-05-16 13:27 | Event Note ---
Date: 05/16/19 Patient has failed hemodialysis access. There was an attempted thrombectomy yesterday but was unsuccessful. He presents today with a thrombosed left arm AV access. His potassium is remarkably elevated. Patient has not had any food or drink today. Bedside ultrasound shows that the right internal jugular vein is essentially occluded. The left internal jugular vein appears to be patent. Discussed the situation in detail with patient. Recommend left internal jugular vein permacath. New access to be established when schedule permits. She agrees to proceed.
[2019-05-16] MEDS ORDERED: ANCEF/STERILE WATER 2 GM/20 ML 2 GM/20 ML SYRINGE IV ONE (13:38)
[2019-05-16] MEDS: VERSED ONE ×2 (13:39→13:43)
[2019-05-16] MEDS: HEPARIN 10,000 UNITS/10 ML ONE ×4 (13:48→22:40)
--- NOTE | 2019-05-16 14:07 | Operative Report ---
Operative Report Operative Report: LEFT JUGULAR VEIN PERMACATH Date of procedure: 05/16/2019 Pre-operative diagnosis: ESRD Post-operative diagnosis: same Procedure name(s): 1. US guided puncture of the left internal jugular vein 2. Placement of left internal jugular permacath (Glidepath 28cm) 3. Fluoroscopic supervision Surgeon: Miguel Angel Morejon MD, FACS Fur Storage Clerk: none Anesthesia: local with sedation; Sedation start: 1331 Sedation end: 1400 Total sedation time: 29 minutes or 2 anesthesia units EBL: minimal Operative indication: Patient is a 48 yo man who requires hemodialysis access because of failed peripheral access. The only patent jugular vein as the left internal. Findings: Good flow from both ports. Catheter located at the cavoatrial junction. Procedure: The patient was placed on the table in the supine position. He was given appropriate moderate sedation. The area over the left neck and chest was prepped with ChloraPrep solution and draped in usual sterile fashion. One percent lidocaine plain was used for local anesthesia. Real-time ultrasound guidance was used to identify the left internal jugular vein through a small incision over the neck. The microwire was placed into the central circulation. A tunnel was fashioned across the chest from the pectoral area up to the neck incision. Initially, a 31 cm catheter was placed through this tunnel. The micro-sheath was placed over the microwire. A J-tipped guidewire was passed into the central circulation. The wire preferentially went up into the right subclavian area. A vertebral catheter was used to direct the guidewire down into the inferior vena cava. An Amplatz stiff wire was then placed into the inferior vena cava. The tract was dilated using the dilators in the kit. The peel-away sheath was placed. Under real-time fluoroscopic guidance the catheter was placed into the right atrium. The catheter was positioned appropriately but the cuff was outside of the skin. The patient had a compact mediastinum and it was clear that this catheter was too long. The Super Stiff wire was placed back through the catheter into the central circulation. A shorter catheter (glidepath 28 cm catheter) was then placed into the central circulation. This appeared to be in appropriate position in the distal right atrium. There was excellent flow from both ports. The catheter was flushed. The catheter was locked with 1000 unit per milliliter heparin to the stated volume in each catheter. The catheter was sewn into place using 2-0 Prolene. The insertion sites were closed with 4-0 Monocryl. Sterile dressings were applied. The patient tolerated the procedure well. He was taken from the cardiac catheteriz ation lab in stable condition.
--- NOTE | 2019-05-16 16:11 | Consultation ---
History of Present Illness - History of Present Illness Thank you for the consultation ! Patient was evaluated today at 1140 in the morning My assessment and plan are as follows End-stage renal disease: Patient will need immediate dialysis , he currently does not have an access , her sugar has clotted likely due to hypotension will require vascular surgery evaluation Dialysis has been ordered, if doing well he will be placed on Saturday He is currently being admitted with clotted AV access patient does need fist ulogram, currently does require dialysis access for hemodialysis Hypotension we'll give him ProAmatine and follow-up on the blood pressure patient likely will require cardiac workup Hyperkalemia: Needs immediate dialysis Patient has had declot procedure done yesterday which did not work out, his fis willard currently does not have good flow ? Due to hypotension? Underlying stenosis Needs to be seen by vascular surgery Lack of vascular access, emergency room physician is contacting vascular surgery And is currently being followed by Dr. Kimberly Veras Advised emergency room physician to treat the hyperkalemia medically for now, Monitor dialysis related labs Immediate hemodialysis post dialysis catheter placement Case was also discussed with dialysis nurse orders were given for stat dialysis We'll continue to follow and make recommendation from renal standpoint Had a detailed discussion with patient about the plan of care from renal standpoint. All questions were answered labs and pertinent imaging findings were explained to the patient and simple Albanian. Prognosis: Guarded We'll continue to follow and make recommendation from renal standpoint Thank you for the consultation. History of presenting illness; Patient is a 48-year-old -[place] male who has been admitted here with clotted AV graft, he recently has had fistulogram done day before admission, but did not work patient has also been noted to be hypotensive. Consultation was placed for management of end-stage renal disease with hyperkalemia currently is being followed by Dr. Yady Veras I saw the patient in emergency room and ordered for hemodialysis, Vascular surgery consultation is being placed by emergency room physician for immediate dialysis Past medical history significant for: ESRD Clotted dialysis access chronic hypotension Anemia in end-stage renal disease Secondary hyperparathyroidism Current allergies: Reviewed Home medication/present medication: Reviewed Social history: Reviewed from the current chart Family history: Reviewed from the current chart Review of system is positive for; All other review of systems were negative Physical examination Vitals: Reviewed from this admission Gen.: No acute distress HEENT: Normocephalic/atraumatic skull oral mucosa moist minimal pallor no icterus or uremic order Neck: Supple without any thyromegaly nodular mass or JVD Chest: Clear to auscultation anteriorly few faint basilar crackles otherwise unremarkable Heart: Regular rate and rhythm S1 and S2 heard no S3-S4 no pericardial rub Abdomen: Soft nontender no guarding rigidity rebound organomegaly no suprapubic masses, no CVA tenderness no renal bruit Back: No CVA tenderness Derm: No petechial rashes dry skin Dialysis access: Appears to be clotted no thrill Extremity: Pulses palpable no peripheral cyanosis, 1+ edema dry skin Neurological: Alert awake follows commands Psychiatric: No agitation and aggression Labs and x-rays: Were reviewed from this admission Medications and Allergies Allergies Allergy/AdvReac Type Severity Reaction Status Date / Time No Known Allergies Allergy Verified 05/16/19 08:04 Home Medications Medication Instructions Recorded Confirmed Last Taken Type Cinacalcet [Sensipar] 60 mg PO QDAY 12/30/16 06/09/18 06/08/18 History Sevelamer Carbonate [Renvela] 800 mg PO TIDWM 12/30/16 06/09/18 06/08/18 History Midodrine [Proamatine] 10 mg PO Q8HR tablet 04/01/18 06/09/18 06/09/18 07:30 Rx Calcitriol [Rocaltrol] 0.5 mcg PO 3XW 06/09/18 06/09/18 06/07/18 History HYDROcodone/APAP 7.5-325 [[place] 1 each PO Q6HR PRN #24 tablet 06/09/18 Unknown Rx 7.5/325] Metoprolol Xl [Metoprolol 50 mg PO 4XW 06/09/18 06/09/18 06/09/18 07:30 History SUCCINATE ER TAB] Active Meds: Active Medications Sodium Chloride (Nacl 0.9%) 100 mls @ 999 mls/hr IV ARIANA PRN PRN Reason: Hypotension Sodium Chloride (Nacl 0.9%) 100 mls @ 999 mls/hr IV ARIANA PRN PRN Reason: Hypotension Midodrine (Proamatine) 5 mg PO ARIANA PRN PRN Reason: Hypotension Exam - Vital Signs Vital signs: Vital Signs Temp Pulse Resp BP Pulse Ox 97.9 F 98 H 18 117/71 97 05/16/19 08:07 05/16/19 08:07 05/16/19 08:07 05/16/19 08:07 05/16/19 08:07 Results - Lab Results 05/17/19 05:00 05/17/19 05:00 Most recent lab results Calcium 9.0 mg/dL (8.4-10.2) 05/16/19 10:18
[2019-05-16] MEDS ORDERED: D50W (25GM) Syringe IV ONE (18:00)
--- NOTE | 2019-05-16 18:16 | History and Physical Report ---
History of Present Illness Date of examination: 05/16/19 Date of admission: 05/16/19 11:53 Chief complaint: Clotted AV access in the right arm History of present illness: 48-year-old -[place]er male with history of end-stage renal disease, congestive heart failure, type 2 diabetes, and hypertension comes in for clotted AV fistula on the right arm. Last dialysis was done on Saturday which is 4 days ago. Patient could not get dialysis because of the nonfunctioning AV fistula. A access was declotted yesterday but was not successful. Patient comes to the e mergency room for declotting of the AV fistula. Patient is a high potassium level and needs emergent hemodialysis. No fever or chills. Dr. Veras is his reporter. Orthopnea present. Shortness of breath on exertion present. Past Medical History Hypertension: Yes (Yes per history, IN THE PAST) Congestive Heart Failure: Yes Diabetes: Yes Renal Disease: Yes Arthritis: Yes Additional medical history: Dialysis patient, has graft in left arm. no dialysis since 1998. frequent UTIs Surgical History Additional Surgical History: Kidney transplant. graft placement Social History Smoking Status: Never Smoker Substance Use Type: Prescribed Family history Htn Medications Home Medications: Home Medications Medication Instructions Recorded Confirmed Last Taken Type Cinacalcet [Sensipar] 60 mg PO QDAY 12/30/16 06/09/18 06/08/18 History Sevelamer Carbonate [Renvela] 800 mg PO TIDWM 12/30/16 06/09/18 06/08/18 History Midodrine [Proamatine] 10 mg PO Q8HR tablet 04/01/18 06/09/18 06/09/18 07:30 Rx Calcitriol [Rocaltrol] 0.5 mcg PO 3XW 06/09/18 06/09/18 06/07/18 History HYDROcodone/APAP 7.5-325 [[place] 1 each PO Q6HR PRN #24 tablet 06/09/18 Unknown Rx 7.5/325] Metoprolol Xl [Metoprolol 50 mg PO 4XW 06/09/18 06/09/18 06/09/18 07:30 History SUCCINATE ER TAB] Review of systems Stated complaint: DIALYSIS/CLOTTED Access Other details as noted in HPI Comment: All other systems reviewed and negative Medications and Allergies Allergies Allergy/AdvReac Type Severity Reaction Status Date / Time No Known Allergies Allergy Verified 05/16/19 08:04 Home Medications Medication Instructions Recorded Confirmed Last Taken Type Cinacalcet [Sensipar] 60 mg PO QDAY 12/30/16 06/09/18 06/08/18 History Sevelamer Carbonate [Renvela] 800 mg PO TIDWM 12/30/16 06/09/18 06/08/18 History Midodrine [Proamatine] 10 mg PO Q8HR tablet 04/01/18 06/09/18 06/09/18 07:30 Rx Calcitriol [Rocaltrol] 0.5 mcg PO 3XW 06/09/18 06/09/18 06/07/18 History HYDROcodone/APAP 7.5-325 [[place] 1 each PO Q6HR PRN #24 tablet 06/09/18 Unknown Rx 7.5/325] Metoprolol Xl [Metoprolol 50 mg PO 4XW 06/09/18 06/09/18 06/09/18 07:30 History SUCCINATE ER TAB] Active Meds: Active Medications Sodium Chloride (Nacl 0.9%) 100 mls @ 999 mls/hr IV ARIANA PRN PRN Reason: Hypotension Sodium Chloride (Nacl 0.9%) 100 mls @ 999 mls/hr IV ARIANA PRN PRN Reason: Hypotension Midodrine (Proamatine) 5 mg PO ARIANA PRN PRN Reason: Hypotension Exam - Constitutional Vitals: Temp Pulse Resp BP Pulse Ox 98.2 F 105 H 18 103/55 97 05/16/19 14:30 05/16/19 17:00 05/16/19 14:30 05/16/19 17:00 05/16/19 08:07 General appearance: Present: no acute distress, well-nourished - EENT Eyes: Present: PERRL ENT: hearing intact, clear oral mucosa - Neck Neck: Present: supple, normal ROM - Respiratory Respiratory effort: normal Respiratory: bilateral: CTA - Cardiovascular Heart rate: 78 Rhythm: regular Heart Sounds: Present: S1 & S2. Absent: rub, click - Extremities Extremities: no ischemia, pulses intact, pulses symmetrical, No edema, abnormal (AV Fistula--No thrill R arm) Peripheral Pulses: within normal limits - Abdominal General gastrointestinal: Present: soft, non-tender, non-distended, normal bowel sounds Male genitourinary: Present: normal - Integumentary Integumentary: Present: clear, warm, dry - Musculoskeletal Musculoskeletal: gait normal, strength equal bilaterally - Psychiatric Psychiatric: appropriate mood/affect, intact judgment & insight - Neurologic Neurologic: CNII-XII intact, moves all extremities Results - Labs CBC & Chem 7: 05/16/19 10:18 05/16/19 10:18 Labs: Laboratory Last Values WBC 6.8 K/mm3 (4.5-11.0) 05/16/19 10:18 RBC 3.59 M/mm3 (3.65-5.03) L 05/16/19 10:18 Hgb 11.7 gm/dl (11.8-15.2) L 05/16/19 10:18 Hct 35.0 % (35.5-45.6) L 05/16/19 10:18 MCV 98 fl (84-94) H 05/16/19 10:18 MCH 33 pg (28-32) H 05/16/19 10:18 MCHC 33 % (32-34) 05/16/19 10:18 RDW 15.9 % (13.2-15.2) H 05/16/19 10:18 Plt Count 195 K/mm3 (140-440) 05/16/19 10:18 Lymph % (Auto) 31.9 % (13.4-35.0) 05/16/19 10:18 Prentiss % (Auto) 7.0 % (0.0-7.3) 05/16/19 10:18 Eos % (Auto) 4.2 % (0.0-4.3) 05/16/19 10:18 Baso % (Auto) 0.9 % (0.0-1.8) 05/16/19 10:18 Lymph # 2.2 K/mm3 (1.2-5.4) 05/16/19 10:18 Prentiss # 0.5 K/mm3 (0.0-0.8) 05/16/19 10:18 Eos # 0.3 K/mm3 (0.0-0.4) 05/16/19 10:18 Baso # 0.1 K/mm3 (0.0-0.1) 05/16/19 10:18 Seg Neutrophils % 56.0 % (40.0-70.0) 05/16/19 10:18 Seg Neutrophils # 3.8 K/mm3 (1.8-7.7) 05/16/19 10:18 PT 14.3 Sec. (12.2-14.9) 05/16/19 10:18 INR 1.14 (0.87-1.13) H 05/16/19 10:18 APTT 28.0 Sec. (24.2-36.6) 05/16/19 10:18 Sodium 136 mmol/L (137-145) L 05/16/19 10:18 Potassium 6.4 mmol/L (3.6-5.0) H* 05/16/19 10:18 Chloride 90.5 mmol/L (98-107) L 05/16/19 10:18 Carbon Dioxide 23 mmol/L (22-30) 05/16/19 10:18 29 mmol/L 05/16/19 10:18 BUN 77 mg/dL (9-20) H 05/16/19 10:18 15.0 mg/dL (0.8-1.5) H 05/16/19 10:18 Estimated GFR 4 ml/min 05/16/19 10:18 5 % 05/16/19 10:18 Glucose 84 mg/dL (75-100) 05/16/19 10:18 Calcium 9.0 mg/dL (8.4-10.2) 05/16/19 10:18 - Imaging and Cardiology EKG: report reviewed Imaging and Cardiology: EKG SINUS RHYTHM BORDERLINE PROLONGED MO INTERVAL LOW VOLTAGE, EXTREMITY LEADS ABNORMAL T, CONSIDER ISCHEMIA, LATERAL LEADS Assessment and Plan Advance Directives: Yes (full code) VTE prophylaxis?: Chemical Plan of care discussed with patient/family: Yes - Patient Problems (1) Dialysis AV fistula malfunction Current Visit: Yes Status: Acute Qualifiers: Encounter type: initial encounter Qualified Code(s): T82.590A - Other m echanical complication of surgically created arteriovenous fistula, initial encounter Plan to address problem: Vascular surgery consulted Patient going to the Personnel Specialist for declotting (2) ESRD needing dialysis Current Visit: Yes Status: Chronic Plan to address problem: Patient to go for hemodialysis after the declotting procedure Nephrology consult requested Dr. Arrieta credit collections manager Continue Sevelamir (3) Hyperkalemia Current Visit: Yes Status: Acute Plan to address problem: Hyperkalemia treated in the emergency room--- patient received Kayexalate sodium bicarbonate and D50 W with insulin. Patient also to get emergent hemodialysis for correction of potassium with low potassium bath (4) Hypertension Current Visit: Yes Status: Chronic Qualifiers: Hypertension type: essential hypertension Qualified Code(s): I10 - Essential (primary) hypertension Plan to address problem: Continue antihypertensives when blood pressure is high (5) Hypotension Current Visit: Yes Status: Acute Qualifiers: Hypotension type: idiopathic hypotension Qualified Code(s): I95.0 - Idiopathic hypotension Plan to address problem: Midodrin initiated (6) Volume overload Current Visit: Yes Status: Acute Plan to address problem: Patient did get emergent hemodialysis and increased ultrafiltration for volume removal (7) DVT prophylaxis Current Visit: Yes Status: Acute Plan to address problem: On heparin 5000 every 12hrs and GI prophylaxis (8) Discharge planning issues Current Visit: Yes Status: Acute Plan to address problem: Patient may be discharged tomorrow if stable and if the labs are normal
[2019-05-16] MEDS ORDERED: ZOFRAN IV PRN (18:18)
[2019-05-16] MEDS ORDERED: IBUPROFEN PO PRN (18:18)
[2019-05-16] MEDS ORDERED: SODIUM CHLORIDE FLUSH SYRINGE 10 ML IV PRN (18:18)
[2019-05-16] MEDS ORDERED: TYLENOL PO PRN (18:18)
[2019-05-16] MEDS ORDERED: MORPHINE IV PRN (18:18)
[2019-05-16] MEDS ORDERED: REGLAN IV PRN ×2 (18:18→21:00)
[2019-05-16] MEDS ORDERED: NACL 0.9 (PRIMING MACHINE ONLY DIALYSIS) MC ONE (19:24)
[2019-05-16] MEDS ORDERED: SODIUM CHLORIDE FLUSH SYRINGE 10 ML IV SCH (22:00)
[2019-05-16] MEDS: SENSIPAR PO SCH (22:38)
[2019-05-16] MEDS: PROAMATINE PO SCH (22:38)
[2019-05-16] MEDS: HEPARIN SUB-Q SCH (22:39)
[2019-05-16] MEDS: PEPCID PO SCH (22:39)
[2019-05-16] MEDS: NORCO 7.5/325 PO PRN (22:39)
[2019-05-17 05:23] LABS: Basophils % (Auto) 0.3 % (0.0-1.8); Eosinophils # (Auto) 0.3 K/mm3 (0.0-0.4); Eosinophils % (Auto) 5.7 % (0.0-4.3); Hematocrit 31.6 % (35.5-45.6); Hemoglobin 10.8 gm/dl (11.8-15.2); Lymphocytes # (Auto) 1.4 K/mm3 (1.2-5.4); Lymphocytes % (Auto) 29.2 % (13.4-35.0); Mean Corpuscular HGB Conc 34 % (32-34); Mean Corpuscular Volume 96 fl (84-94); Monocytes # (Auto) 0.6 K/mm3 (0.0-0.8); Monocytes % (Auto) 11.6 % (0.0-7.3); Platelet Count 164 K/mm3 (140-440); Red Blood Count 3.31 M/mm3 (3.65-5.03)
[2019-05-17 05:43] LABS: Calcium 8.6 mg/dL (8.4-10.2)
[2019-05-17 05:44] LABS: Albumin 3.4 g/dL (3.9-5)
[2019-05-17] MEDS: PROAMATINE PO SCH (05:58)
[2019-05-17] MEDS: NORCO 7.5/325 PO PRN (05:59)
[2019-05-17] MEDS: RENVELA PO SCH ×2 (08:39→11:08)
[2019-05-17] MEDS ORDERED: TOPROL XL PO SCH (10:00)
[2019-05-17] MEDS ORDERED: ROCALTROL PO SCH (10:00)
[2019-05-17] MEDS: SENSIPAR PO SCH (11:06)
[2019-05-17] MEDS: PEPCID PO SCH (11:06)
[2019-05-17] MEDS: HEPARIN SUB-Q SCH (11:06)
[2019-05-17 11:08] VITALS: BP 112/54
--- NOTE | 2019-05-17 12:14 | Discharge Summary ---
Providers - Providers Date of Admission: 05/16/19 11:53 Date of discharge: 05/17/19 Attending physician: AMY MILLARD 05/16/19 11:50 Consult to Physician [CONS] Urgent Comment: Dr. Herrera notified @ 11:49- [facility] Consulting Provider: SILVESTRE HERRERA Physician Instructions: Reason For Exam: need dialysis access, clotted access 05/16/19 11:51 Consult to Physician [CONS] Urgent Comment: Dr. Arrieta notified @ 12:45- [facility] Consulting Provider: RICHARD ARRIETA Physician Instructions: Reason For Exam: needs dialysis, hyperkalemia Primary care physician: CYNTHIA WEINBERG Hospitalization Reason for admission: clotted AV access Condition: Stable Pertinent studies: none Procedures: Placement of Vas-Cath under ultrasound guidance Hospital course: 48-year-old -[place] male with history of end-stage renal disease, congestive heart failure, type 2 diabetes, and hypertension comes in for clotted AV fistula on the right arm. Last dialysis was done on Saturday which is 4 days ago. Patient could not get dialysis because of the nonfunctioning AV fistula. A access was declotted yesterday but was not successful. Patient comes to the emergency room for declotting of the AV fistula. Patient is a high potassium level and needed emergent hemodialysis. No fever or chills. Dr. Weinberg is his plater printed circuit board panels. Orthopnea present. Shortness of breath on exertion present. Disposition: TO HOME OR SELFCARE Time spent for discharge: min - Discharge Diagnoses (1) Dialysis AV fistula malfunction Status: Acute Qualifiers: Encounter type: initial encounter Qualified Code(s): T82.590A - Other mechanical complication of surgically created arteriovenous fistula, initial encounter (2) Hyperkalemia Status: Acute (3) Volume overload Status: Acute (4) ESRD needing dialysis Status: Chronic (5) Hypertension Status: Chronic Qualifiers: Hypertension type: essential hypertension Qualified Code(s): I10 - Essential (primary) hypertension Core Measure Documentation - Palliative Care Palliative Care/ Comfort Measures: Hospice Care Exam - Physical Exam Narrative exam: Constitutional: Well-nourished well-developed. In no distress Head: Normocephalic atraumatic Eyes: Pupils are equal round and reactive to light Nose: No enlarged turbinates, no septal deviation. Mouth: Moist mucous membranes. Neck: Supple no thyromegaly. No bruit. No JVD Heart: Regular rate and rhythm, S1-S2 normal. No rubs murmurs or gallop Lungs: Clear to auscultation bilaterally. no rales or rhonchi Abdomen: Soft, nontender. Bowel sound are present. Extremities: No edema, no cyanosis, no clubbing. Neuro: Alert oriented Oriented x3. No focal sensory or motor deficit. Skin: No rashes or hyperpigmented spots Musculoskeletal system: No joint pain or swelling Hematological: No petechia or subcutanous hemorrhages. Immunological: No multiple septic spots on the skin Lymphatic: No generalized lymphadenopathy Psychiatry: Euthymic. Calm. - Constitutional Vitals: Temp Pulse Resp BP Pulse Ox 97.5 F L 90 18 112/54 95 05/17/19 08:50 05/17/19 11:07 05/17/19 08:50 05/17/19 11:07 05/17/19 08:50 Plan Activity: advance as tolerated Weight Bearing Status: Weight Bear as Tolerated Diet: diabetic Follow up with: CYNTHIA WEINBERG MD [Primary Care Provider] - 7 Days
== END 2019-05-17 17:15 | disposition home or self-care (01) | DRG 286 ==
LOC: ED 08:02 → 4A 11:53
PROVIDERS: ADMIT Internal Medicine; ATTEND Family Medicine
PROC: 0JH63XZ Insertion of Tunneled Vascular Access Device into Chest Subcutaneous Tissue and Fascia, Percutaneous Approach (ICD-10-PCS; principal; 2019-05-16)
PROC: B2141ZZ Fluoroscopy of Right Heart using Low Osmolar Contrast (ICD-10-PCS; 2019-05-16)
PROC: 02H633Z Insertion of Infusion Device into Right Atrium, Percutaneous Approach (ICD-10-PCS; 2019-05-16)
PROC: B244ZZZ Ultrasonography of Right Heart (ICD-10-PCS; 2019-05-16)
PROC: 5A1D70Z Performance of Urinary Filtration, Intermittent, Less than 6 Hours Per Day (ICD-10-PCS; 2019-05-16)
DX: T82.868A Thrombosis due to vascular prosthetic devices, implants and grafts, initial encounter (principal); N18.6 End stage renal disease; I13.2 Hypertensive heart and chronic kidney disease with heart failure and with stage 5 chronic kidney disease, or end stage renal disease; Z94.0 Kidney transplant status; N25.81 Secondary hyperparathyroidism of renal origin; Y83.8 Other surgical procedures as the cause of abnormal reaction of the patient, or of later complication, without mention of misadventure at the time of the procedure; Y92.098 Other place in other non-institutional residence as the place of occurrence of the external cause; I95.0 Idiopathic hypotension; E87.70 Fluid overload, unspecified; D63.1 Anemia in chronic kidney disease; E87.5 Hyperkalemia; I50.9 Heart failure, unspecified; E11.22 Type 2 diabetes mellitus with diabetic chronic kidney disease; M19.90 Unspecified osteoarthritis, unspecified site; Z99.2 Dependence on renal dialysis; Z79.84 Long term (current) use of oral hypoglycemic drugs; Z82.49 Family history of ischemic heart disease and other diseases of the circulatory system
CPT/HCPCS: 36415; 36558; 77001; 80048; 80053; 83036; 85025; 85610; 85730; 93005; 93010; 94640; G0378; C1750; C1769; J0610; J0690; J1644; J1815; J2250; J3010; J7030; J7050

== ENCOUNTER 2020-04-02 11:31 | Emergency (ER) | payer MEDICARE ==
[2020-04-02 12:50] LABS: Hematocrit 42.4 % (35.5-45.6); Hemoglobin 14.1 gm/dl (11.8-15.2); Mean Corpuscular HGB Conc 33 % (32-34); Mean Corpuscular Volume 89 fl (84-94); Platelet Count 162 K/mm3 (140-440); Red Blood Count 4.78 M/mm3 (3.65-5.03)
[2020-04-02 12:51] LABS: Alanine Aminotransferase 9 units/L (7-56); Albumin 4.2 g/dL (3.9-5); BUN/Creatinine Ratio 15; Blood Urea Nitrogen 18 mg/dL (9-20); Calcium 9.6 mg/dL (8.4-10.2); Hemolysis Index 30
[2020-04-02 12:52] LABS: Bacteria,Urine 1+ /HPF (Negative); Bilirubin,Urine NEG (Negative); Blood,Urine NEG (Negative); Color,Urine Yellow (Yellow); Mucus,Urine FEW /HPF; Protein,Urine <15 mg/dL mg/dL (Negative); Urobilinogen,Urine < 2.0 mg/dL (<2.0)
[2020-04-02] MEDS ORDERED: SODIUM CHLORIDE 0.9% 1000 ML 1,000 ML IV ONE (13:04)
[2020-04-02] MEDS ORDERED: ACETAMINOPHEN 500 MG TAB PO ONE (13:08)
--- NOTE | 2020-04-02 13:09 | Emergency Department Report ---
ED General Adult HPI - General Chief complaint: Urogenital-Male Stated complaint: UTI Time Seen by Provider: 04/02/20 12:36 Source: patient Mode of arrival: Ambulatory Limitations: No Limitations - History of Present Illness Initial comments: Patient is 49 years old male with history of kidney transplant in October 2019. Patient presented to the ER complaining of fever and increased urinary frequency. Patient also reported burning sensation when he go to the bathroom. Patient informed me that he has been diagnosed with frequent UTI infection with bacteria called Klebsiella per patient report. Patient currently denying any runny nose, cough, congestion, shortness of breath, nausea or vomiting. Patient also denied any abdominal pain or chest pain. Patient stated that he had his transplant and [facility]. Severity scale (0 -10): 0 - Related Data Home Medications Medication Instructions Recorded Confirmed Last Taken Sevelamer Carbonate [Renvela] 800 mg PO TIDWM 12/30/16 06/09/18 06/08/18 calcitrioL [Rocaltrol] 0.5 mcg PO 3XW 06/09/18 06/09/18 06/07/18 Previous Rx's Medication Instructions Recorded Last Taken Type Cinacalcet HCl [Sensipar] 60 mg PO DAILY #30 tablet 05/17/19 Unknown Rx Cinacalcet [Sensipar] 60 mg PO QDAY #30 tablet 05/17/19 Unknown Rx Famotidine [Pepcid] 10 mg PO BID tablet 05/17/19 Unknown Rx HYDROcodone/APAP 7.5-325 [Purdum 1 each PO Q6HR PRN tablet 05/17/19 Unknown Rx 7.5-325 mg TAB] Ibuprofen [Motrin 600 MG tab] 600 mg PO Q6H PRN tablet 05/17/19 Unknown Rx Metoprolol Xl [Metoprolol 50 mg PO 4XW #16 tablet 05/17/19 Unknown Rx SUCCINATE ER TAB] Metoprolol Xl [Metoprolol 50 mg PO SuMoWeFr tablet 05/17/19 Unknown Rx SUCCINATE ER TAB] Midodrine [Proamatine] 5 mg PO ARIANA PRN tablet 05/17/19 Unknown Rx Midodrine [Proamatine] 10 mg PO Q8HR #60 tablet 05/17/19 Unknown Rx Midodrine [Proamatine] 10 mg PO QDAC #60 tablet 05/17/19 Unknown Rx Sodium Chloride 0.9% Int [Sodium 10 ml IV BID syringe 05/17/19 Unknown Rx Chloride Flush Syringe 10 ml] Allergies Allergy/AdvReac Type Severity Reaction Status Date / Time No Known Allergies Allergy Verified 05/16/19 08:04 ED Review of Systems ROS: Stated complaint: UTI Other details as noted in HPI Comment: All other systems reviewed and negative Constitutional: chills, fever ENT: denies: congestion Respiratory: denies: cough, shortness of breath Cardiovascular: palpitations. denies: chest pain Gastrointestinal: denies: abdominal pain, nausea, vomiting, diarrhea, constipation, hematemesis, melena, hematochezia Musculoskeletal: denies: back pain Neurological: denies: headache, weakness, numbness, paresthesias, confusion, abnormal gait ED Past Medical Hx - Past Medical History Previous Medical History?: Yes Hx Hypertension: Yes Hx Congestive Heart Failure: Yes Hx Diabetes: Yes Hx Liver Disease: No Hx Renal Disease: Yes Hx Arthritis: Yes Hx Seizures: No Hx Asthma: No Hx COPD: No Hx HIV: No Additional medical history: Dialysis patient, has graft in left arm. no dialysis since 1998. frequent UTIs - Surgical History Past Surgical History?: Yes Additional Surgical History: Kidney transplant. graft placement - Social History Smoking Status: Never Smoker Substance Use Type: Prescribed - Medications Home Medications: Home Medications Medication Instructions Recorded Confirmed Last Taken Type Sevelamer Carbonate [Renvela] 800 mg PO TIDWM 12/30/16 06/09/18 06/08/18 History calcitrioL [Rocaltrol] 0.5 mcg PO 3XW 06/09/18 06/09/18 06/07/18 History Cinacalcet HCl [Sensipar] 60 mg PO DAILY #30 tablet 05/17/19 Unknown Rx Cinacalcet [Sensipar] 60 mg PO QDAY #30 tablet 05/17/19 Unknown Rx Famotidine [Pepcid] 10 mg PO BID tablet 05/17/19 Unknown Rx HYDROcodone/APAP 7.5-325 [Purdum 1 each PO Q6HR PRN tablet 05/17/19 Unknown Rx 7.5-325 mg TAB] Ibuprofen [Motrin 600 MG tab] 600 mg PO Q6H PRN tablet 05/17/19 Unknown Rx Metoprolol Xl [Metoprolol 50 mg PO 4XW #16 tablet 05/17/19 Unknown Rx SUCCINATE ER TAB] Metoprolol Xl [Metoprolol 50 mg PO SuMoWeFr tablet 05/17/19 Unknown Rx SUCCINATE ER TAB] Midodrine [Proamatine] 5 mg PO ARIANA PRN tablet 05/17/19 Unknown Rx Midodrine [Proamatine] 10 mg PO Q8HR #60 tablet 05/17/19 Unknown Rx Midodrine [Proamatine] 10 mg PO QDAC #60 tablet 05/17/19 Unknown Rx Sodium Chloride 0.9% Int [Sodium 10 ml IV BID syringe 05/17/19 Unknown Rx Chloride Flush Syringe 10 ml] ED Physical Exam - General Limitations: No Limitations General appearance: alert, in no apparent distress - Head Head exam: Present: atraumatic, normocephalic, normal inspection - Eye Eye exam: Present: normal appearance - ENT ENT exam: Present: normal exam, normal orophraynx, mucous membranes moist - Neck Neck exam: Present: normal inspection, full ROM. Absent: tenderness, meningismus, lymphadenopathy, thyromegaly - Respiratory Respiratory exam: Present: normal lung sounds bilaterally - Cardiovascular Cardiovascular Exam: Present: tachycardia - GI/Abdominal GI/Abdominal exam: Present: soft, normal bowel sounds. Absent: distended, tenderness, guarding, rebound, rigid, organomegaly, mass, bruit, pulsatile mass, hernia - Extremities Exam Extremities exam: Present: normal inspection, full ROM, normal capillary refill. Absent: pedal edema, calf tenderness - Back Exam Back exam: Present: normal inspection, full ROM. Absent: tenderness, CVA tenderness (L) - Neurological Exam Neurological exam: Present: alert, oriented X3, CN II-XII intact - Psychiatric Psychiatric exam: Present: normal mood - Skin Skin exam: Present: warm, intact, normal color ED Course Vital Signs 04/02/20 04/02/20 04/02/20 11:36 12:08 12:12 Temperature 98.8 F 100.4 F H Pulse Rate 125 H 116 H Respiratory 20 21 Rate Blood Pressure 118/62 Blood Pressure 127/71 [Left] O2 Sat by Pulse 97 96 97 Oximetry 04/02/20 04/02/20 04/02/20 12:15 12:25 13:16 Temperature 99.8 F H Pulse Rate 110 H 108 H Respiratory 24 19 Rate Blood Pressure 127/71 123/73 Blood Pressure [Left] O2 Sat by Pulse 96 98 Oximetry 04/02/20 04/02/20 15:00 15:07 Temperature 99.0 F Pulse Rate 113 H Respiratory 27 H Rate Blood Pressure 122/52 Blood Pressure [Left] O2 Sat by Pulse 97 Oximetry ED Medical Decision Making - Lab Data Result diagrams: 04/02/20 11:59 04/02/20 11:59 - Medical Decision Making Patient is 49 years old male with history of kidney transplant in October 2019. Patient presented to the ER complaining of fever and increased urinary frequency. Patient also reported burning sensation when he go to the bathroom. Patient informed me that he has been diagnosed with frequent UTI infection with bacteria called Klebsiella per patient report. Patient currently denying any runny nose, cough, congestion, shortness of breath, nausea or vomiting. Patient also denied any abdominal pain or chest pain. Patient stated that he had his transplant and [facility] Labs reviewed and is unremarkable. I discussed the patient with Dr. Jhoana Medina, kidney transplant pest control supervisor at [facility]. We reviewed patient history and current labs and symptoms. Dr. Medina stated that patient does not need to be transfer or admitted she stated that patient has history of Klebsiella UTI and his culture is sensitive to fluoroquinolone and she advised to start patient on Levaquin 500 mg daily for 10 days and patient advised to follow-up with them in the next 2 to 3 days. I advised the patient to follow-up with his kidney transplant in the next 2 to 3 days. Patient also advised to return to the ER if he start having any shortness of breath, increased fever dizziness or any new symptoms suggesting of sepsis or kidney failure. Patient understood the instruction very well and advised to return to the ER if he develop the above mentioned symptoms or other symptoms. Critical care attestation.: If time is entered above; I have spent that time in minutes in the direct care of this critically ill patient, excluding procedure time. ED Disposition Clinical Impression: Renal transplant recipient, Fever, UTI (urinary tract infection) Disposition: - TO HOME OR SELFCARE Is pt being admited?: No Condition: Stable Instructions: Urinary Tract Infection in Men (ED) Referrals: KHOA SAINI MD [Primary Care Provider] - 3-5 Days
[2020-04-02 14:00] LABS: Band Neutrophils # (Manual) 0.3 K/mm3; Total Cells Counted 100
[2020-04-02 14:01] LABS: RBC Morphology Normal
[2020-04-02 14:02] LABS: Platelet Estimate Consistent w Auto
--- NOTE | 2020-04-02 14:14 | XRay Report ---
CHEST 1 VIEW INDICATION: FEVER. COMPARISON: 03/22/2018. FINDINGS: Support devices: None. Heart: Normal. Lungs/Pleura: There appears to be complete right middle lobe atelectasis. Mild right lower lobe opaci ties could be atelectatic as well. There is a small right pleural effusion. IMPRESSION: 1. Small right pleural effusion. 2. Probable complete right middle lobe collapse/atelectasis. Nonspecific right lower lobe opacities c ould be atelectatic. Pneumonia could have this appearance. Signer Name: Adin Pendleton MD Signed: 04/02/2020 2:10 PM Workstation Name: [id number]
== END 2020-04-02 18:58 | disposition home or self-care (01) ==
LOC: ED 11:31
DX: N39.0 Urinary tract infection, site not specified (principal); R50.9 Fever, unspecified; I13.2 Hypertensive heart and chronic kidney disease with heart failure and with stage 5 chronic kidney disease, or end stage renal disease; I50.9 Heart failure, unspecified; N18.6 End stage renal disease; E11.22 Type 2 diabetes mellitus with diabetic chronic kidney disease; M19.90 Unspecified osteoarthritis, unspecified site; Z94.0 Kidney transplant status; Z79.899 Other long term (current) drug therapy; Z98.890 Other specified postprocedural states
CPT/HCPCS: 36415; 71045; 80053; 81001; 85007; 85025; 87040; 96365; 96366; 99284; J1956; J7030